=== PATIENT | female | born 1940 | race Caucasian/White ===

== ENCOUNTER 2019-09-16 15:04 | Outpatient (CLI) | payer MEDICARE, BC, SELFPAY ==
--- NOTE | ~2019-09-16 | XR_ITS ---
EXAMINATION: XR knee RT 3V DATE: 09/16/2019 15:52 INDICATION: Right knee pain. Degenerative joint disease. TECHNIQUE: 3 views of right knee were obtained. COMPARISON: Right knee radiographs 08/15/2016 FINDINGS: Bone alignment is normal. No fracture. There is mild tricompartmental osteoarthritis. No kn ee joint effusion. IMPRESSION: 1. Stable mild right knee osteoarthritis. Reviewed, dictated and finalized at location E.
--- NOTE | ~2019-09-16 | XR_ITS ---
EXAMINATION: XR knee LT 3V DATE: 09/16/2019 15:51 INDICATION: Left knee pain. TECHNIQUE: 3 views of left knee were obtained. COMPARISON: Right knee radiographs 08/15/2016 FINDINGS: Bone alignment is normal. No fracture. There is mild tricompartmental osteoarthritis. There is a moderate-sized knee joint effusion. IMPRESSION: 1. Worsened mild left knee osteoarthritis. 2. Moderate-sized left knee joint effusion. Reviewed, dictated and finalized at location E.
== END 2019-09-16 15:05 | disposition home or self-care (01) ==
DX: M17.0 Bilateral primary osteoarthritis of knee (principal); M25.462 Effusion, left knee
CPT/HCPCS: 73562

== ENCOUNTER 2019-09-24 09:23 | Outpatient (CLI) | payer MEDICARE, BC, SELFPAY ==
--- NOTE | ~2019-09-24 | MM_ITS ---
EXAMINATION: MM screening [facility] BI w frantz HISTORY: Screening mammogram TECHNIQUE: Craniocaudal and mediolateral oblique 3-D tomosynthesis images were obtained and synthetic 2-D images were generated. CAD analysis was submitted and interpreted. COMPARISON: 05/11/2018, 02/28/2017, 01/22/2016 BREAST PARENCHYMAL COMPOSITION: There are scattered areas of fibroglandular density. FINDINGS: An unchanged focal asymmetry is present in the posterior third of the upper outer quadrant of the left breast. There is also a stable mass in the anterior third of the slightly outer right ricky ast. There is no evidence of suspicious mass, calcification, or architectural distortion to suggest m alignancy in either breast. There has been no suspicious interval change. IMPRESSION: 1. No mammographic evidence of malignancy. 2. Recommend routine screening mammography while the patient remains in good health. BI-RADS Category 2: Benign finding(s). Reviewed, dictated and finalized at location A. IMPRESSION: 1. No mammographic evidence of malignancy. 2. Recommend routine screening mammography while the patient remains in good he alth. BI-RADS Category 2: Benign finding(s).
== END 2019-09-24 09:24 | disposition home or self-care (01) ==
LOC: ANHIMG 09:38
DX: Z12.31 Encounter for screening mammogram for malignant neoplasm of breast (principal)
CPT/HCPCS: 77063; 77067

== ENCOUNTER 2019-11-21 10:47 | Emergency (ER) | payer MEDICARE, BC, SELFPAY ==
--- NOTE | ~2019-11-21 | XR_ITS ---
EXAMINATION: XR chest 2V DATE: 11/21/2019 11:48 INDICATION: Chest pain. Shortness of breath. TECHNIQUE: Frontal and lateral views of the chest were obtained. COMPARISON: CT abdomen and pelvis 11/11/2016 FINDINGS: The chest demonstrates clear lungs without pneumonia, pleural effusion, or pneumothorax. Th e heart size is normal. There are prominent paracardial fat pads. IMPRESSION: 1. No acute cardiopulmonary disease. Reviewed, dictated and finalized at location B.
[2019-11-21 10:53] VITALS: BP 162/72; PULSE 96; RESP 20; TEMP 37.1; O2SAT 99
--- NOTE | 2019-11-21 11:12 | ECG_ITS ---
Measurements Intervals [place] Rate: 99 P: 57 IA: 179 QRS: -37 QRSD: 139 T: 103 QT: 363 QTc: 467 Interpretive Statements SINUS RHYTHM VENTRICULAR PREMATURE COMPLEX POSSIBLE LEFT ATRIAL ENLARGEMENT LEFT AXIS DEVIATION LEFT BUNDLE BRANCH BLOCK BASELINE ARTIFACT- I, II, AVR ABNORMAL ECG Electronically Signed On 11-21-2019 11:54:00 CDT by Oliverio Roberts D.O.
--- NOTE | 2019-11-21 11:24 | ED.CHESTPAIN ---
HPI - Chest Pain General Chief Complaint: Chest Pain Stated Complaint: cp/sob Time Seen by Provider: 11/21/19 11:15 History of Present Illness HPI narrative: Patient presents with her best friend since age 3, for chest pressure. Started while she was in physical therapy today for her knee, at 10 AM. She had a similar episode 4 days after her left knee replacement. She had a full medical work-up at [facility] emergency room, and no cause was found. She has not had a blood clot before. Her knee replacement was a month ago, at [facility]. It was a partial knee replacement. She tells us that she can do an hour and a half of water aerobics at a time. She cannot give her chest pressure a number of pain. She feels like she has had some chills. She has not been sick otherwise. MD complaint: chest heaviness Pertinent past history: other (Hypertension) Onset (ago): hour(s) Timing of current episode: constant Prior episodes: Yes Onset: during exertion Pain location: substernal Pain radiation: none Quality: tightness Relieving factors: nothing Exacerbating factors: nothing Context: recent surgery Associated symptoms: other (Chills) Treatment prior to arrival: none Risk Factors Coronary artery disease risk factors: hypertension Pulmonary embolism risk factors: recent surgery Related Data Home Medications Medication Instructions Recorded Confirmed amlodipine 10 mg PO DAILY 11/21/19 aspirin 325 mg PO DAILY 11/21/19 diclofenac sodium 75 mg PO DAILY 11/21/19 hydrocodone-acetaminophen [[place]] 1 tablet PO Q2-4H 11/21/19 irbesartan 300 mg PO DAILY 11/21/19 triamterene-hydrochlorothiazid 1 cap PO DAILY 11/21/19 Allergies Allergy/AdvReac Type Severity Reaction Status Date / Time shellfish derived Allergy Severe SWELLING Verified 09/23/17 10:57 lidocaine Allergy Mild TACHYCARDIA Verified 09/23/17 10:57 Penicillins Allergy Unknown Verified 11/11/15 16:45 Sulfa (Sulfonamide Allergy Unknown Verified 11/11/15 16:45 Antibiotics) tetracycline Allergy Unknown Verified 11/11/15 16:45 codeine AdvReac Mild CONFUSION Unverified 09/23/17 10:57 Contrast Media Allergy Severe TACHYCARDIA Uncoded 09/23/17 10:57 Horse Serum Proteins Allergy Severe PRONOUNCED Uncoded 09/23/17 10:57 ON ARRIVAL AT ER IN 1950S Review of Systems Review of Systems: Narrative: CONSTITUTIONAL: Denies fever, chills, or sweats. EYES: Denies visual changes, redness, or discharge. ENT: Denies rhinorrhea, congestion, sore throat, or otalgia. CARDIOVASCULAR: He has chest pressure but not palpitations, or edema. RESPIRATORY: Denies cough or dyspnea. GASTROINTESTINAL: Denies abdominal pain, nausea, vomiting, or diarrhea. GENITOURINARY: Denies dysuria or hematuria. SKIN: Denies rash or itching. MUSCULOSKELETAL: Denies back pain, joint pain, or myalgia. NEUROLOGIC: Denies headache, numbness, or weakness. . All systems reviewed & are unremarkable except as noted in HPI and below PMFSH Surgical History Surgical History History of knee surgery Family History Family History (Updated 12/05/13 @ 07:13 by DOCTOR UNKNOWN) Other Hypertension Social History Social History Smoking status: Never smoker Exam Narrative: Exam Narrative: GENERAL: Well-appearing, well-nourished, and in no acute distress. Looks much younger than stated age. HEAD: Normocephalic, atraumatic. EYES: PERRLA and EOMI. ENT: Nares clear, no rhinorrhea or epistaxis. Mucous membranes moist. NECK: Supple. CHEST: Clear to auscultation. No respiratory distress. HEART: Regular rate and rhythm. No murmur heard. Normal peripheral pulses. ABDOMEN: Soft, nontender, nondistended, normal active bowel sounds. EXTREMITIES: Normal range of motion. No edema. SKIN: Warm, dry, no rash. NEURO: No focal deficits. Alert and oriented x3. PSYCH: Normal mood and affect. Course Reev
[2019-11-21 11:26] LABS: Basophils Absolute Auto 0.1 K/mm3 (0.0-0.1); Basophils Percent Auto 1.1 % (0.2-1.2); Eosinophils Absolute Auto 0.7 K/mm3 (0-0.3); Eosinophils Percent Auto 9.4 % (0-4.4); Hematocrit 37.5 % (37.0-47.0); Hemoglobin 12.6 g/dL (12.0-15.0); Immature Granulocyte Absolute 0.02 K/mm3 (0.00-0.031); Immature Granulocyte Percent A 0.3 % (0-0.5); Lymphocytes Absolute Auto 2.31 K/mm3 (0.9-3.2); Lymphocytes Percent Auto 31.6 % (18.3-44.2); Mean Corpuscular HGB Conc 33.6 g/dl (32-36); Mean Corpuscular Hemoglobin 32.6 pg (26-34); Mean Corpuscular Volume 96.9 fl (80-100); Mean Platelet Volume 9.4 fl (7.4-10.4); Monocytes Absolute Auto 0.5 K/mm3 (0.1-0.6); Monocytes Percent Auto 6.6 % (2.6-8.5); Neutrophils Absolute Auto 3.7 K/mm3 (1.3-6.7); Platelet Count Result 326 k/mm3 (150-375); Red Blood Count 3.87 M/mm3 (4.2-5.4); White Blood Count 7.3 K/mm3 (4.5-10.0)
[2019-11-21 11:35] LABS: Prothrombin Time 12.6 Seconds (11.1-14.7)
[2019-11-21 11:36] LABS: Partial Thromboplastin Time 33.2 SECONDS (22.3-36.8)
[2019-11-21 11:41] LABS: Anion Gap 8 mmol/L (8-16); Blood Urea Nitrogen 28 mg/dL (7-17); Calcium 9.7 mg/dL (8.4-10.2); Carbon Dioxide 29 mmol/L (22-30); Chloride 99 mmol/L (98-107); Estimated CRCL calculation 32 ml/min; Estimated Glomerular Filt Rate 43; Glucose 107 mg/dL (65-105); Potassium 3.4 mmol/L (3.4-5.0); Sodium 136 mmol/L (137-145)
[2019-11-21 11:53] LABS: Troponin I < 0.012 ng/mL (0.000-0.034)
[2019-11-21 12:17] LABS: Add Urine Microscopic? YES; Appearance Urine Clear (Clear); Bilirubin Urine Negative (Negative); Blood Urine Negative (Negative); Color Urine Yellow (Yellow); Glucose Urine UA Negative (Negative); Ketones Urine Negative (Negative); Leukocyte Esterase Ur Negative LEU/UL (Negative); Mucus Urine Rare /lpf; Nitrate Urine Negative (Negative); Protein Urine Negative (Negative); RBC Urine 0-2 /hpf (0-2); Specific Grav Ur 1.012 (1.001-1.035); Urobilinogen Urine Negative mg/dL (<2.0); WBC Urine 0-3 /hpf
[2019-11-21 13:28] VITALS: BP 100/63; PULSE 90; RESP 20; O2SAT 100
[2019-11-21 14:43] LABS: Troponin I < 0.012 ng/mL (0.000-0.034)
[2019-11-21 15:43] VITALS: BP 121/57; PULSE 80; RESP 18; O2SAT 99
== END 2019-11-21 15:44 | disposition home or self-care (01) ==
PROVIDERS: Emergency Provider Emergency Medicine
DX: I44.7 Left bundle-branch block, unspecified (principal); R07.89 Other chest pain; R06.02 Shortness of breath
CPT/HCPCS: 36415; 71046; 80048; 81001; 84484; 85025; 85610; 85730; 93005; 99284; A9270

== ENCOUNTER 2021-10-17 12:36 | Outpatient (CLI) | payer MEDICARE, BC, SELFPAY ==
--- NOTE | ~2021-10-17 | MR_ITS ---
EXAMINATION: MR foot LT wo con DATE: 10/17/2021 13:43 INDICATION: Left foot and ankle pain TECHNIQUE: Magnetic resonance imaging (MRI) of the left fluid which excludes the posterior aspect of the calcaneus was performed without intravenous contrast. Sequences included sagittal T1-weighted FSE , sagittal fluid sensitive FSE STIR, coronal PD-weighted FS FSE, coronal T1-weighted FSE, axial PD-we ighted FS FSE, and axial PD-weighted FSE. COMPARISON: Left foot radiographs dated 03/02/2015 FINDINGS: Unchanged chronic varus angulation at the first-third metatarsophalangeal joints with hammertoe defor mities at the second and third toes. No fracture or pathologic marrow replacing process. Moderate to severe osteoarthritis with subarticular cystic and edema-like changes at the first-third tarsal metat arsal joints. 2.3 x 2.1 x 1.5 cm multilobulated ganglion cyst which appears to arise from the junctio n of the articulations of the base of the first and second metatarsals and the medial and mid cuneifo sergio. The Lisfranc ligament complex remains normal. Additional mild osteoarthritis at the fourth and f ifth tarsal metatarsal joints, the first second third metatarsophalangeal and several interphalangeal joints. The collateral ligament complex at the metatarsophalangeal and interphalangeal joints. Intac t. There is mild tendinopathy without discrete tear at the distal tibialis anterior tendon. The remai esther flexor and extensor tendons appear normal. The medial and lateral stabilizing ligaments of the a nkle as well as the spring ligament complex are normal. IMPRESSION: 1. Moderate to severe osteoarthritis at the first-third tarsal metatarsal joints with associated 2.3 x 2.1 x 1.5 cm multilobulated ganglion cyst extending dorsal to the base of the second metatarsal. 2. Varus angulation at the first second third metatarsophalangeal joints with second and third hammer toe deformities. 3. Tendinopathy without discrete tear at the distal tibialis anterior tendon Reviewed, dictated and finalized at location B. IMPRESSION: 1. Moderate to severe osteoarthritis at the first-third tarsal metatarsal joint s with associated 2.3 x 2.1 x 1.5 cm multilobulated ganglion cyst extending alexia eliana to the base of the second metatarsal. 2. Varus angulation at the first second third metatarsophalangeal joints with s econd and third hammertoe deformities. 3. Tendinopathy without discrete tear at the distal tibialis anterior tendon
== END 2021-10-17 12:37 | disposition home or self-care (01) ==
LOC: ANHIMG 12:39
DX: M25.572 Pain in left ankle and joints of left foot (principal); G89.29 Other chronic pain; M19.072 Primary osteoarthritis, left ankle and foot; M67.472 Ganglion, left ankle and foot; M21.172 Varus deformity, not elsewhere classified, left ankle; M20.42 Other hammer toe(s) (acquired), left foot; M77.8 Other enthesopathies, not elsewhere classified
CPT/HCPCS: 73718

== ENCOUNTER 2021-12-29 10:19 | Outpatient (CLI) | payer MEDICARE, BC, SELFPAY ==
--- NOTE | ~2021-12-29 | MM_ITS ---
EXAMINATION: MM screening [facility] BI w frantz HISTORY: Screening mammogram TECHNIQUE: Craniocaudal and mediolateral oblique 3-D tomosynthesis images were obtained and synthetic 2-D images were generated. CAD analysis was submitted and interpreted. COMPARISON: 09/24/2019, 05/11/2018, 02/28/2017 BREAST PARENCHYMAL COMPOSITION: There are scattered areas of fibroglandular density. FINDINGS: There is no suspicious mass, calcification, or architectural distortion to suggest malignan cy in either breast. There has been no suspicious interval change. IMPRESSION: 1. No mammographic evidence of malignancy. 2. Recommend routine screening mammography while the patient remains in good health. BI-RADS Category 1: Negative Reviewed, dictated and finalized at location D. IMPRESSION: 1. No mammographic evidence of malignancy. 2. Recommend routine screening mammography while the patient remains in good he alth. BI-RADS Category 1: Negative
== END 2021-12-29 10:20 | disposition home or self-care (01) ==
DX: Z12.31 Encounter for screening mammogram for malignant neoplasm of breast (principal)
CPT/HCPCS: 77063; 77067

== ENCOUNTER 2022-01-16 21:45 | Inpatient (IN) | payer MEDICARE, BC, SELFPAY ==
[2022-01-16] VITALS (16 sets, daily range): BP systolic 115–188; BP diastolic 50–63; PULSE 39–102; RESP 13–20; TEMP 36.9; O2SAT 97–100
--- NOTE | ~2022-01-16 | XR_ITS ---
EXAMINATION: XR chest 2V DATE: 01/18/2022 15:23 INDICATION: Pacer placement. TECHNIQUE: Frontal and lateral views of the chest were obtained. COMPARISON: Chest single view 01/17/2022 FINDINGS: There is mild atelectasis in left lower lung zone. No pleural effusion or pneumothorax. The heart size is normal. There is a left chest wall pacer with leads in the right atrium and right vent ricle. IMPRESSION: 1. Mild atelectasis in left lower lung zone. Reviewed, dictated and finalized at location A.
--- NOTE | ~2022-01-16 | XR_ITS ---
EXAMINATION: XR chest 1V DATE: 01/16/2022 22:43 INDICATION: Syncope. Dizziness. TECHNIQUE: A single frontal view of the chest was obtained. COMPARISON: Chest 2 views 11/21/2019 FINDINGS: There is mild atelectasis in left lower lung zone. Jessica B-lines are noted, consistent wit h mild pulmonary edema. No pleural effusion or pneumothorax. The heart size is normal. IMPRESSION: 1. Mild pulmonary edema. 2. Mild atelectasis in left lower lung zone. Reviewed, dictated and finalized at location A.
--- NOTE | ~2022-01-16 | CT_ITS ---
EXAMINATION: CT brain wo con DATE: 01/16/2022 22:45 INDICATION: Syncope. Dizziness. TECHNIQUE: Computed tomography (CT) of the head was performed without intravenous contrast. The mA wa s adjusted according to patient size. Iterative reconstruction technique was employed. The dose-lengt h product was 605.33 mGy-cm. COMPARISON: None FINDINGS: There is no intracranial hemorrhage, acute infarction, or abnormal intracranial mass lesion . There are scattered areas of low attenuation in the cerebral white matter, which is within normal l imits for the patient's age. The ventricles are normal in size. The paranasal sinuses are clear. The mastoid air cells are normal. IMPRESSION: 1. Normal aging brain. Reviewed, dictated and finalized at location A. IMPRESSION: 1. Normal aging brain.
--- NOTE | ~2022-01-16 | CT_ITS ---
EXAMINATION: CT cervical spine wo con DATE: 01/16/2022 22:46 INDICATION: Neck injury. Fall. TECHNIQUE: Computed tomography (CT) of the cervical spine was performed without intravenous contrast. Automated exposure control and iterative reconstruction technique were employed. The dose-length pro duct was 335.36 mGy-cm. COMPARISON: None FINDINGS: There is mild scarring at the lung apices. There is kyphosis of cervical spine. There is 2 mm anterolisthesis of C3 on C4 and 2 mm retrolisthesis of C5 on C6. Vertebral body heights are normal . There is moderately decreased disc height at C4-C5 and severely decreased disc height at C5-C6, C6- C7, and C7-T1. The following disc levels are specifically discussed: C2-C3: There is no uncovertebral joint osteoarthritis. There is severe right and moderate left facet joint osteoarthritis. There is mild right neural foraminal stenosis. There is no central canal stenos is. C3-C4: There is mild right and moderate left uncovertebral joint osteoarthritis. There is mild right and severe left facet joint osteoarthritis. There is mild left neural foraminal stenosis. There is mi ld central canal stenosis. C4-C5: There is moderate right and severe left uncovertebral joint osteoarthritis. There is severe bi lateral facet joint osteoarthritis. There is mild bilateral neural foraminal stenosis. There is mild central canal stenosis. C5-C6: There is moderate and severe left uncovertebral joint osteoarthritis. There is mild bilateral facet joint osteoarthritis. There is mild bilateral neural foraminal stenosis. There is mild central canal stenosis. C6-C7: There is moderate and severe left uncovertebral joint osteoarthritis. There is mild right and moderate left facet joint osteoarthritis. There is mild left neural foraminal stenosis. There is mild central canal stenosis. C7-T1: There is moderate right and mild left uncovertebral joint osteoarthritis. There is severe bila teral facet joint osteoarthritis. There is mild bilateral neural foraminal stenosis. There is mild ce ntral canal stenosis. IMPRESSION: 1. No fracture. 2. Severe cervical spondylosis. Reviewed, dictated and finalized at location A.
--- NOTE | ~2022-01-16 | US_ITS ---
EXAMINATION: US abdomen limited DATE: 01/17/2022 09:42 INDICATION: Elevated liver function tests TECHNIQUE: Multiple grayscale and Doppler ultrasound images of the abdomen were obtained. COMPARISON: CT, 11/11/2016 FINDINGS: The head, body, and tail of the pancreas are normal. There is a 2.2 cm cyst of the liver. T here is a 9 mm hyperechoic lesion of the right hepatic lobe with minimal change since the comparison CT. The liver is otherwise normal with normal echogenicity and echotexture. No surface nodularity. No rmal hepatopetal flow in the main portal vein. The gallbladder is normal with no abnormal wall thicke esther, pericholecystic fluid or stones. The normal common bile duct measures 4 mm. There was no sonogr aphic Meehan sign. IMPRESSION: 1. Normal sonographic study of the gallbladder. Reviewed, dictated and finalized at location A.
--- NOTE | ~2022-01-16 | XR_ITS ---
EXAMINATION: XR chest 1V portable DATE: 01/17/2022 15:42 INDICATION: Pacemaker insertion TECHNIQUE: frontal view of the chest was obtained. COMPARISON: Chest radiograph dated 01/16/2022 FINDINGS: Unchanged linear discoid atelectasis/scarring at the lateral left lower lung zone. No other airspace opacities, pulmonary edema, pleural effusion or pneumothorax. The cardiomediastinal silhouette is nor mal. Dual lead pacemaker seen with leads projecting over the expected locations of the right atrium a nd right ventricle. Mild thoracic dextroscoliosis with moderate to severe midthoracic spondylosis. IMPRESSION: 1. Unchanged linear discoid atelectasis/scarring at the left lower lung zone. No acute cardiopulmonar y disease. Reviewed, dictated and finalized at location B. IMPRESSION: 1. Unchanged linear discoid atelectasis/scarring at the left lower lung zone. N o acute cardiopulmonary disease.
--- NOTE | 2022-01-16 21:50 | PC.NURSE ---
Patient transferred to radiology for imaging by this RN and soil science technical officer. Patient on transfer monitor and VORB to give 0.5mg of atropine if patient becomes symptomatic or stays with a HR in the 30s.
--- NOTE | 2022-01-16 21:54 | ECG_ITS ---
Measurements Intervals [place] Rate: 39 P: AK: 0 QRS: -53 QRSD: 147 T: 20 QT: 496 QTc: 400 Interpretive Statements COMPLETE HEART BLOCK LEFT BUNDLE BRANCH BLOCK CRITICAL TEST RESULT COMPARED TO ECG 11/21/2019 10:53:07 COMPLETE HEART BLOCK IS NOW PRESENT Electronically Signed On 01-17-2022 11:42:09 CDT by Ayanna Toledo M.D.
--- NOTE | 2022-01-16 21:57 | ED.SYNCOPE ---
HPI - Syncope General Chief Complaint: Syncope Stated Complaint: new beta hugh syncopal episode x 2 Time Seen by Provider: 01/16/22 21:45 History of Present Illness HPI narrative: This is an 81-year-old female brought in by EMS for syncopal episode x3 today. Patient states her metoprolol was increased from 50 mg to 75 mg which she took this morning. She also started Irbesartan 300 mg which she took approximately an hour before becoming lightheaded and losing consciousness. Bystanders said the patient fell to the ground and hit her head as well as her left forearm. On arrival EMS noted the patient in normal sinus rhythm with normal blood pressures. However during their evaluation patient lost consciousness again. Patient notes she lost consciousness at third time while lying on the ground. She denies chest pain. Related Data Home Medications Medication Instructions Recorded Confirmed amlodipine 10 mg tablet 10 mg PO DAILY 11/21/19 aspirin 325 mg tablet 325 mg PO DAILY 11/21/19 diclofenac sodium 75 mg 75 mg PO DAILY 11/21/19 tablet,delayed release hydrocodone 5 mg-acetaminophen 325 1 tablet PO Q2-4H 11/21/19 mg tablet ([place]) irbesartan 300 mg tablet 300 mg PO DAILY 11/21/19 triamterene 37.5 1 cap PO DAILY 11/21/19 mg-hydrochlorothiazide 25 mg capsule Allergies Allergy/AdvReac Type Severity Reaction Status Date / Time shellfish derived Allergy Severe SWELLING Verified 01/16/22 21:56 lidocaine Allergy Mild TACHYCARDIA Verified 01/16/22 21:56 Penicillins Allergy Unknown Hives Verified 01/16/22 21:56 Sulfa (Sulfonamide Allergy Unknown Hives Verified 01/16/22 21:56 Antibiotics) tetracycline Allergy Unknown Hives Verified 01/16/22 21:56 codeine AdvReac Mild CONFUSION Verified 01/16/22 21:56 Contrast Media Allergy Severe TACHYCARDIA Uncoded 09/23/17 10:57 Horse Serum Proteins Allergy Severe PRONOUNCED Uncoded 09/23/17 10:57 ON ARRIVAL AT ER IN 1950S Review of Systems Review of Systems: CONSTITUTIONAL: Denies fever, chills, or sweats. EYES: Denies visual changes, redness, or discharge. ENT: Denies rhinorrhea, congestion, sore throat, or otalgia. CARDIOVASCULAR: Denies chest pain, palpitations, or edema. RESPIRATORY: Denies cough or dyspnea. GASTROINTESTINAL: Denies abdominal pain, nausea, vomiting, or diarrhea. GENITOURINARY: Denies dysuria or hematuria. SKIN: Denies rash or itching. MUSCULOSKELETAL: Denies back pain, joint pain, or myalgia. NEUROLOGIC: Intermittent lightheadedness and loss of consciousness denies headache, numbness, or weakness. PSYCHIATRIC: Denies anxiety or depression. [facility], [facility] Past Medical History Medical History (Updated 01/17/22 @ 02:51 by Loki Richmond MD) Hypertension LBBB (left bundle branch block) Neoplasm of leg Rheumatoid arthritis Surgical History Surgical History History of knee surgery Family History Family History (Updated 01/17/22 @ 02:15 by Arnaldo Booker RN) Father Cancer Mother Cancer Other Hypertension Social History Social History Smoking packs per day: 0.5 Smoking cigarettes per day: 10.0 Years smoked: 20 Smoking pack-years: 10.00 Smoking status: Former smoker Tobacco type: cigarettes Alcohol intake: never Substance use: never Substance use type: does not use Spiritual care concerns: No Exam Narrative: GENERAL: Well-appearing, well-nourished, and in no acute distress. HEAD: Normocephalic, atraumatic. EYES: PERRLA and EOMI. ENT: Nares clear, no rhinorrhea or epistaxis. Mucous membranes moist. Oropharynx without tonsillar hypertrophy exudate or other lesions. NECK: Supple. No adenopathy or masses. No carotid bruits or JVD CHEST: Clear to auscultation. No respiratory distress. No wheezes rales or rhonchi HEART: Bradycardic with regular rhythm. No murmur heard. Normal per
[2022-01-16 22:08] LABS: Glucose Point of Care 117 mg/dl (65-105)
[2022-01-16 22:19] LABS: Basophils Absolute Auto 0.1 K/mm3 (0.0-0.1); Basophils Percent Auto 0.7 % (0.2-1.2); Eosinophils Absolute Auto 0.3 K/mm3 (0-0.3); Eosinophils Percent Auto 3.5 % (0-4.4); Hematocrit 40.3 % (37.0-47.0); Hemoglobin 13.6 g/dL (12.0-15.0); Immature Granulocyte Absolute 0.01 K/mm3 (0.00-0.031); Immature Granulocyte Percent A 0.1 % (0-0.5); Lymphocytes Absolute Auto 1.97 K/mm3 (0.9-3.2); Lymphocytes Percent Auto 24.6 % (18.3-44.2); Mean Corpuscular HGB Conc 33.7 g/dl (32-36); Mean Corpuscular Hemoglobin 32.7 pg (26-34); Mean Corpuscular Volume 96.9 fl (80-100); Mean Platelet Volume 9.1 fl (7.4-10.4); Monocytes Absolute Auto 0.5 K/mm3 (0.1-0.6); Monocytes Percent Auto 5.9 % (2.6-8.5); Neutrophils Absolute Auto 5.2 K/mm3 (1.3-6.7); Neutrophils Percent Auto 65.2 % (45.5-73.1); Platelet Count Result 215 k/mm3 (150-375); Red Blood Count 4.16 M/mm3 (4.2-5.4); Red Cell Distribution Width 12.9 % (11.5-14.5)
[2022-01-16 22:24] LABS: Add Urine Microscopic? YES; Appearance Urine Clear (Clear); Bacteria Urine Trace /hpf; Bilirubin Urine Negative (Negative); Blood Urine Negative (Negative); Color Urine Yellow (Yellow); Glucose Urine UA Negative (Negative); Ketones Urine Negative (Negative); Leukocyte Esterase Ur Trace LEU/UL (Negative); Mucus Urine Rare /lpf; Nitrate Urine Negative (Negative); Protein Urine Negative (Negative); Specific Grav Ur 1.019 (1.001-1.035); Squamous Epithelial Cell Urine Rare /hpf (Few); Urobilinogen Urine Negative mg/dL (<2.0); WBC Urine 0-3 /hpf
[2022-01-16 22:34] LABS: Alanine Aminotransferase 229 U/L (6-35); Albumin Level 4.1 g/dL (3.5-5.1); Alkaline Phosphatase 113 U/L (38-126); Anion Gap 9 mmol/L (8-16); Aspartate Amino Transferase 239 U/L (14-36); Blood Urea Nitrogen 30 mg/dL (7-17); Calcium 9.4 mg/dL (8.4-10.2); Carbon Dioxide 21 mmol/L (22-30); Chloride 108 mmol/L (98-107); Estimated CRCL calculation 41 ml/min; Estimated Glomerular Filt Rate 60; Glucose 127 mg/dL (65-110); Magnesium 1.9 mg/dL (1.6-2.3); Potassium 3.4 mmol/L (3.4-5.0); Sodium 138 mmol/L (137-145)
--- NOTE | 2022-01-16 22:40 | PC.NURSE ---
Patient transferred to radiology for imaging by this RN and dental technician instructor. Patient on transfer monitor and VORB to give 0.5mg of atropine if patient becomes symptomatic or stays with a HR in the 30s.
[2022-01-16 22:44] LABS: Troponin I < 0.012 ng/mL (0.000-0.034)
--- NOTE | 2022-01-16 22:45 | PC.NURSE ---
Informed ERP of patient HR dipping into the 30s but was varied and ranged into 40s, and patient was not symptomatic while in imaging.
--- NOTE | 2022-01-16 22:47 | PC.NURSE ---
2245 [facility] give 0.5mg of atropine IVP per .
[2022-01-16] MEDS: ATROPINE SULFATE 1 MG/ML VIAL 0.4 MG IV PUSH (23:01)
[2022-01-17] VITALS (27 sets, daily range): BP systolic 115–169; BP diastolic 40–80; PULSE 33–91; RESP 12–25; TEMP 36.3–36.8; O2SAT 94–100; BMI 27.9
--- NOTE | 2022-01-17 | ECHO_ITS ---
Patient Info Name: Marisol Yañez Age: 81 years : 1940 Gender: Female Ht: 63 in Wt: 160 lbs BSA: 1.82 m2 HR: 42 bpm BP: 155 / 65 mmHg Heart Rhythm: Bradycardia Technical Quality: Good Exam Date: 01/17/2022 8:38 AM Exam Location: [facility] Patient Status: Inpatient Admit Date: 01/17/2022 Staff Ordering Physician: Khang Newsome MD [employer]ting Tracer Machine Operator: Candace Vargas RDCS Attending Provider: Axel Amador MD Referring Physician: Jerod GARCÍA; Exam Type: CA echo doppler color flow Study Info Indications R55 - Syncope and collapse Complete two-dimensional, color flow and Doppler transthoracic echocardiogram is performed. Summary 1. Complete two-dimensional, color flow and Doppler transthoracic echocardiogram is performed. 2. Left ventricular systolic function is normal, estimated at 55-60%. 3. The left ventricular diastolic function is normal. 4. Right ventricular systolic function is normal. 5. There is mild mitral valve regurgitation. 6. There is mild tricuspid valve regurgitation. 7. There is mild pulmonic regurgitation. Left Ventricle Left ventricular chamber dimension is normal. Left ventricular systolic function is normal, estimated at 55-60%. There is no increased left ventricular wall thickness. The left ventricular diastolic function is normal. Right Ventricle Right ventricular chamber dimension is normal. Right ventricular systolic function is normal. Left Atria Left atrial chamber dimension is normal. Right Atria Right atrial chamber dimension is normal. Aortic Valve The aortic valve is not well visualized. There is no aortic valve stenosis. There is no aortic valve regurgitation. Pulmonic Valve The pulmonic valve is not well visualized. There is mild pulmonic regurgitation. Mitral Valve Mild calcification of the posterior mitral valve leaflet. The mitral valve has normal leaflets. There is no mitral valve stenosis. There is mild mitral valve regurgitation. Tricuspid Valve The tricuspid valve leaflets are not well visualized. There is no significant tricuspid valve stenosis. There is mild tricuspid valve regurgitation. Pericardium/Pleural There is no pericardial effusion. Inferior Vena Cava Dilated inferior vena cava with >50% collapse upon inspiration consistent with elevated right atrial pressure, 8 mmHg. Left Ventricular Outflow Tract Name Value Normal LVOT 2D LVOT Diameter 1.9 cm LVOT Doppler LVOT Peak Gradient 7 mmHg LVOT Mean Gradient 4 mmHg LVOT VTI 39 cm LVOT VTI/AV VTI Ratio 0.9 LVOT Stroke Volume 109 ml LVOT CO 17.6 l/min LVOT CI 9.7 l/min/m2 Pulmonic Valve Name Value Normal PV Doppler
[2022-01-17] MEDS: ATROPINE SULFATE 1 MG/ML VIAL 0.5 MG IV PUSH ×2 (00:13→00:17)
[2022-01-17] MEDS: ATROPINE SULFATE 1 MG/10 ML SYRINGE (00:33)
--- NOTE | 2022-01-17 00:37 | ECG_ITS ---
Measurements Intervals [place] Rate: 34 P: [place]: 0 QRS: 18 QRSD: 139 T: -22 QT: 572 QTc: 430 Interpretive Statements COMPLETE HEART BLOCK INTRAVENTRICULAR CONDUCTION DELAY [130+ ms QRS DURATION] EXTENSIVE T-WAVE ABNORMALITIES CRITICAL TEST RESULT COMPARED TO ECG 01/16/2022 21:57:12 SINUS RHYTHM NOW PRESENT THE PATIENT NOW HAS A RIGHT BUNDLE-BRANCH BLOCK PATTERN INSTEAD OF A LEFT BBB Electronically Signed On 01-18-2022 12:50:26 CDT by Trudy Razo M.D.
[2022-01-17] MEDS: DOBUTamine 250 MG/D5W 250 ML 250 MG/250 ML BAG 10.91 MG IV CONT (00:41)
[2022-01-17 01:40] LABS: Troponin I < 0.012 ng/mL (0.000-0.034)
--- NOTE | 2022-01-17 02:34 | ADMGEN ---
This patient, Marisol Yañez, was admitted to Intensive Care Unit-3. Patient/family oriented to hospital policies and general routines including ID bracelet, bed and alarms, visiting hours, pain management, procedures, bathroom and other care routines, personal items, smoking policy, room service/diet, and visiting hours. Information on how to activate the Rapid Response Team has been discussed. Patient/Family are encouraged to report perceived risks to care and to ask questions if they do not understand what they are told or what they should do.
--- NOTE | 2022-01-17 03:30 | PC.NURSE ---
Dr. Amador to bedside.
--- NOTE | 2022-01-17 03:35 | PC.NURSE ---
Unsuccessful in placing gottlieb catheterx three attempts.
--- NOTE | 2022-01-17 04:29 | PM.IMHP ---
H&P: HPI History of Present Illness Date/Time: 01/17/22 04:29 Chief Complaint: Syncope Narrative: This is an 81-year-old female with past medical history significant for hypertension, left bundle branch block, rheumatoid arthritis. patient presents to the emergency room after she had syncopal episode x3 had some lightheadedness, denied any chest pain, shortness of breath, diaphoresis, she has been her usual state of health up until this time denies any incontinence of sphincters, nausea, vomiting, abdominal pain, fevers, rigors, chills, leg swelling, PND, orthopnea. Preliminary workup was significant for EKG with second-degree AV block which eventually progressed to complete AV block. Patient is placed on dopamine drip and any and admitted to intensive care unit Review of Systems Review of Systems: syncope x3, lightheadedness Constitutional: Constitutional: Denies chills, Denies fever(s), Denies night sweats and Denies poor appetite Eyes: Eyes: Denies change in vision ENT: Denies dysphagia and Denies odynophagia Cardiovascular: Cardiovascular: Reports syncope, Reports irregular heart rhythm, Reports lightheadedness, Denies dyspnea and Denies paroxysmal nocturnal dyspnea Respiratory: Respiratory: Denies chest congestion, Denies cough, Denies pain on inspiration and Denies dyspnea Gastrointestinal: Gastrointestinal: Denies abdominal pain, Denies dyspepsia, Denies heartburn, Denies nausea and Denies vomiting Genitourinary: Genitourinary: Denies dysuria Musculoskeletal: Musculoskeletal: Denies back pain and Denies joint swelling Integumentary/Breasts: Skin/Breast: Denies rash Neurologic: Denies vertigo, Denies dizziness, Denies focal weakness and Denies Sensory deficit (Neuro) Psychiatric: Psychiatric: Reports no additional psychiatric complaints and Reports as per HPI Endocrine: Endocrine: Denies cold intolerance, Denies flushing, Denies heat intolerance, Denies polyphagia, Denies polydipsia and Denies palpitations Hematologic/Lymphatic: Hematologic/Lymphatic: Reports no additional hematologic/lymphatic complaints and Reports as per HPI Allergic/Immunologic: Allergic/Immunologic: Reports no additional allergic/immunologic complaints and Reports as per HPI PMFSH Past Medical History Medical History (Updated 01/17/22 @ 04:42 by Axel Amador MD) Hypertension LBBB (left bundle branch block) Neoplasm of leg Rheumatoid arthritis Surgical History Surgical History History of knee surgery Family History Family History (Updated 01/17/22 @ 02:15 by Arnaldo Booker RN) Father Cancer Mother Cancer Other Hypertension Social History Social History Smoking packs per day: 0.5 Smoking cigarettes per day: 10.0 Years smoked: 20 Smoking pack-years: 10.00 Smoking status: Former smoker Tobacco type: cigarettes Alcohol intake: never Substance use: never Substance use type: does not use Spiritual care concerns: No Meds Home Medications and Allergies Home Medications Medication Instructions Recorded Confirmed Type amlodipine 10 mg tablet 10 mg PO DAILY 11/21/19 History aspirin 325 mg tablet 325 mg PO DAILY 11/21/19 History diclofenac sodium 75 mg 75 mg PO DAILY 11/21/19 History tablet,delayed release hydrocodone 5 mg-acetaminophen 325 1 tablet PO Q2-4H 11/21/19 History mg tablet ([place]) irbesartan 300 mg tablet 300 mg PO DAILY 11/21/19 History triamterene 37.5 1 cap PO DAILY 11/21/19 History mg-hydrochlorothiazide 25 mg capsule Allergies Allergy/AdvReac Type Severity Reaction Status Date / Time shellfish derived Allergy Severe SWELLING Verified 01/16/22 21:56 lidocaine Allergy Mild TACHYCARDIA Verified 01/16/22 21:56 Penicillins Allergy Unknown Hives Verified 01/16/22 21:56 Sulfa (Sulfonamide Allergy Unknown Hives Verified 01/16/22 21:56 Antibiotic
[2022-01-17] MEDS: DOPamine 400 MG/D5W 250 ML 400 MG/250 ML BAG 13.84 MG IV CONT (07:50)
[2022-01-17 08:12] LABS: INR 1.1; Prothrombin Time 13.6 Seconds (11.1-14.7)
[2022-01-17 08:13] LABS: Partial Thromboplastin Time 28.8 SECONDS (22.3-36.8)
--- NOTE | 2022-01-17 08:34 | PM.CNCAR ---
Assessment and Plan Assessment and plan (1) CHB (complete heart block): Code(s): I44.2 - Atrioventricular block, complete Status: Acute (2) Syncope: Code(s): R55 - Syncope and collapse Status: Acute Plan will obtain an echocardiogram this morning to ensure that the patient does not have evidence of cardiomyopathy. I doubt this will be identified. 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 She was on some metoprolol as an outpatient that is obviously not the cause of this sort of conduction system disease. Khang Newsome MD [facility] History of Present Illness History of Present Illness Consult date/time: 01/17/22 08:34 Reason For Visit: Syncope Narrative: This is a very pleasant 81-year-old lady I am seeing at the request of the hospitalist because of syncope and complete heart block. The patient is unknown to me prior to this consultation. She states she had couple of syncopal episodes earlier last year and in May of this year. When this occurred in May she was seen by a crew leader gluing in [place] where she resides for the winter. She does remember being told that she had a left bundle branch block at that time and no other up recommendations were made. She came to the emergency room last night because yesterday she had 3 syncopal episodes in her home which were self-limited and forth from which she recovered. She is a and lives alone. She does not have any symptoms of exertional shortness of breath she has not been experiencing episodes of chest pain orthopnea PND or accumulating edema. She does have a history of hypertension. She was found to have significant AV block in the emergency room. Initially they called me because they were concerned about second-degree AV block I was called again later in the night because they thought it had progressed to third-degree block. She was given a bed in the ICU she is currently in ICU room 3. Appears to be asymptomatic and comfortable. She is in sinus rhythm with complete heart block and a heart rate of 41. Interestingly her 12 lead electrocardiogram shows alternation between left and right bundle branch block QRS morphology indicating she has trifascicular disease. An echocardiogram is being performed shortly. Review of Systems Constitutional: Constitutional: Reports no additional constitutional complaints and Reports weakness Eyes: Eyes: Reports no additional eye complaints ENT: Reports system reviewed and no additional complaints, except as documented Cardiovascular: Comments: Syncopal episodes as detailed above Respiratory: Respiratory: Reports no additional respiratory complaints Gastrointestinal: Gastrointestinal: Reports no additional gastrointestinal complaints Musculoskeletal: Musculoskeletal: Reports no additional musculoskeletal complaints Integumentary/Breasts: Skin/Breast: Reports system reviewed and no additional complaints, except as docu Neurologic: Reports as per HPI Endocrine: Endocrine: Reports no additional endocrine complaints Hematologic/Lymphatic: Hematologic/Lymphatic: Reports no additional hematologic/lymphatic complaints Allergic/Immunologic: Allergic/Immunologic: Reports no additional allergic/immunologic complaints [facility] Past Medical History Medical History (Updated 01/17/22 @ 04:42 by Axel Amador MD) Hypertension LBBB (left bundle branch block) Neoplasm of leg Rheumatoid arthritis Surgical History Surgical History History of knee surgery Family History Family History (Updated 01/17/22 @ 02:15 by Arnaldo Booker RN) Father Cancer Mother Cancer Other Hypertension Social History Social History S
--- NOTE | 2022-01-17 08:40 | PC.NURSE ---
Morning lovenox held per Dr. Smith pending pacemaker insertion.
[2022-01-17 08:46] LABS: Hepatitis B Surface Antigen Negative (Negative)
[2022-01-17 08:52] LABS: HAV RESULT Negative (Negative); Hepatitis B Core IgM Result Negative (Negative)
--- NOTE | 2022-01-17 08:59 | WPDCNINT ---
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 -patient denies any alcohol or illicit drug use -hepatitis panel is negative -right upper quadrant ultrasound has been ordered and pending Plan DVT prophylaxis: Will hold Lovenox for possible pacemaker implantation today Stress ulcer prophylaxis:none Nutrition: NPO for now Code Status: Full code Critical Care Time Spent: 44 minute Due to a high probability of clinically significant, life threatening deterioration, the patient required my highest level of preparedness to intervene emergently and I personally spent this critical care time directly and personally managing the patient. This critical care time included obtaining a history; examining the patient; pulse oximetry; ordering and review of studies; arranging urgent treatment with development of a management plan; evaluation of patient's response to treatment; frequent reassessment; and discussions with other providers. It was exclusive of separately billable procedures and treating other patients and teaching time. Please see Assessment and Plan section and the rest of the note for further information on patient assessment and treatment Caseworker Intake Consult Note Consult date: 01/17/22 Reason for consult: High degree AV block, syncope HPI: Marisol Yañez is a 81 year old female past medical history of hypertension, left bundle branch, neoplasm of the neck, rheumatoid arthritis presented the ED on 01/16/2022 after she had multiple syncopal episodes on the day of admission. According the patient metoprolol had been increased to 75 mg from 50 mg, she also took IV Versed at 300 mg prior to a syncopal episode. Patient did hit her head the left forearm on the ground. On arrival to the EMS she was initially in sinus rhythm but then she went into complete heart block. CT scan of the brain showed normal aging brain. CT cervical spine showed no fracture, severe cervical spondylosis. Chest x-ray with mild pulmonary edema, atelectasis in left lower lung zone. WBC count, hemoglobin and platelets were all within normal limits. INR was 1.1. Electrolytes are within normal limits. Elevation of AST and ALT noted. Troponins negative x2. UA was unremarkable. Patient was transferred to the ICU, was on dobutamine when she arrived to the ICU -of note patient has had previous syncopal episodes only last a in May this year, she did see a network analyst in [place] who told her that she had left bundle branch block and no other workup was recommended. Patient seen and examined in the ICU this morning in the ICU, remains awake, alert, oriented x3, is asymptomatic, complains of unable to sleep overnight. Patient denies any shortness of breath, chest pain, abdominal pain, nausea, vomiting. EKG shows complete heart block. Patient is on dobutamine. With heart rates in the upper 30s. Patient remains asymptomatic at this time Review of Systems Review of Systems: All systems reviewed & are unremarkable except as noted in HPI and below PMFSH Past M
[2022-01-17 09:03] LABS: Hepatitis C Virus Antibody Negative (Negative)
--- NOTE | 2022-01-17 09:56 | SUR.PREOP ---
Dr. Newsome made aware of patient's allergies. He ordered steroids to be given incase contrast is needed for venogram for pacemaker. MINING MACHINERY ASSEMBLER Jelly made aware. Dr. Newsome would like vancomycin to be used for antibiotics for the case. Dr. Newsome made aware of listed lidocaine allergy and states he does not need an alternative as this is likely not a true allergy.
[2022-01-17] MEDS: methylPREDNISolone SOD SUCC 125 MG VIAL IV PUSH (10:00)
--- NOTE | 2022-01-17 14:44 | ECG_ITS ---
Measurements Intervals [place] Rate: 72 P: 43 IA: 196 QRS: -87 QRSD: 156 T: 42 QT: 481 QTc: 528 Interpretive Statements ELECTRONIC VENTRICULAR PACEMAKER ABNORMAL RHYTHM ECG COMPARED TO ECG 01/17/2022 00:40:17 AV BLOCK, COMPLETE (THIRD-DEGREE) NO LONGER PRESENT Electronically Signed On 01-18-2022 13:10:31 CDT by Trudy Razo M.D.
--- NOTE | 2022-01-17 14:46 | WPDCARDPROC ---
Cardiac Cath Procedure Note Date of procedure:: 01/17/22 Performing physician:: Khang Newsome MD Indication:: acquired complete heart block Brief clinical history:: this is an 81-year-old woman presenting to the hospital with syncopal episodes. She had an episode of this May of this year and then 3 episodes the day of admission to the hospital yesterday. She has sinus rhythm with third-degree AV block and QRS morphology alternating between left and right bundle branch block. Because of complete heart block and trifascicular disease implantation of a permanent dual-chamber pacemaker has been recommended for today. Procedure Procedure performed:: Placement of temporary transvenous pacemaker from the right femoral vein implantation of permanent Biotronik dual-chamber pacemaker Sedation/Medication given:: fentanyl 25 mg Versed 2 mg case start time 1:05 p.m. case end time 2:30 p.m. a Access site:: left subclavian vein Estimated blood loss:: less than 20 cc Procedure note:: patient was brought to the cardiac catheterization lab postabsorptive state the right femoral triangle was prepared and draped in the normal fashion. Anesthesia was given with 4% lidocaine infiltrated locally after this the femoral vein was punctured and a 5 Austrian vascular sheath was placed. I then used a 5 Austrian balloon tipped temporary pacemaker catheter to protect the rhythm during the a permanent implant. The device was easily placed in the RV septal position and with good pacing and sensing performance. We then broke scrub and the team prepared the left anterior chest wall. The patient received another 20 cc of 1% lidocaine in the left anterior chest wall inferior to the clavicle. Following this an incision was made from the midclavicular line to the deltopectoral groove about an inch below the clavicle. Electrocautery was used to provide cutaneous hemostasis and sharp and blunt dissection was used to separate the subcutaneous fat down to the level of the prepectoral fascia. After this a pacemaker pocket was made with blunt dissection inferior to the incision. This pocket was then packed with antibiotic soaked 4 x 4. Attention was then turned to venous access. Using the modified Seldinger technique the left subclavian vein was punctured twice using the 6 Austrian safe sheath kits. The J-tip guidewires were advanced under fluoroscopic visualization into the venous circulation to the level of the right atrium. Using the SafeSheath the 2 pacemaker leads mention below where then advanced into the venous circulation into the level of the right atrium. Attention was then turned to the ventricular lead. The straight stylet was removed and a 3 cc syringe was used to form a J-tip on the stylet which was then used to steer the lead through the right ventricle out to the pulmonary artery position. A straight stylet was placed into the lead was withdrawn and placed into the right ventricular apex. Following this the lead was tested using the analyzed with good pacing Capture performance. The temporary pacemaker did extinguish the intrinsic rhythm there were no intrinsic R-waves to sense. The fixation screw was then deployed and the lead was then tested using the analyzer. A 10 volt stimulus failed to show any evidence of extracardiac stimulation. Following this attention was turned to the atrial lead the straight stylet and a preformed J stylet was used to place the lead in the right atrial appendage. The fixation screw was deployed the lead was fixed into position upon withdrawal of the stylet. The lead was then tested using the analyzed with good pacing and sensing performance. The leads were then secured to the base of the pocket using the suture sleeves and 2-0 silk ties following this the retained sponge was removed the pocket which was irrigated with antibiotic infused saline. Following this the leads were connected to the pacemaker generator using
[2022-01-18] VITALS (11 sets, daily range): BP systolic 119–166; BP diastolic 56–79; PULSE 60–92; RESP 13–23; TEMP 36.8–37.1; O2SAT 94–99
[2022-01-18 07:36] LABS: Basophils Percent Auto 0.1 % (0.2-1.2); Hematocrit 44.9 % (37.0-47.0); Hemoglobin 15.1 g/dL (12.0-15.0); Immature Granulocyte Absolute 0.06 K/mm3 (0.00-0.031); Immature Granulocyte Percent A 0.4 % (0-0.5); Lymphocytes Absolute Auto 1.43 K/mm3 (0.9-3.2); Lymphocytes Percent Auto 10.4 % (18.3-44.2); Mean Corpuscular HGB Conc 33.6 g/dl (32-36); Mean Corpuscular Hemoglobin 32.3 pg (26-34); Mean Corpuscular Volume 96.1 fl (80-100); Mean Platelet Volume 8.9 fl (7.4-10.4); Monocytes Percent Auto 7.4 % (2.6-8.5); Neutrophils Absolute Auto 11.3 K/mm3 (1.3-6.7); Neutrophils Percent Auto 81.7 % (45.5-73.1); Platelet Count Result 257 k/mm3 (150-375); Red Blood Count 4.67 M/mm3 (4.2-5.4); Red Cell Distribution Width 13.1 % (11.5-14.5); White Blood Count 13.8 K/mm3 (4.5-10.0)
[2022-01-18 07:46] LABS: Alanine Aminotransferase 112 U/L (6-35); Albumin Level 4.1 g/dL (3.5-5.1); Alkaline Phosphatase 87 U/L (38-126); Anion Gap 11 mmol/L (8-16); Aspartate Amino Transferase 36 U/L (14-36); Bilirubin,Total 1.2 mg/dL (0.2-1.3); Blood Urea Nitrogen 32 mg/dL (7-17); Calcium 9.9 mg/dL (8.4-10.2); Carbon Dioxide 25 mmol/L (22-30); Chloride 104 mmol/L (98-107); Estimated CRCL calculation 38 ml/min; Estimated Glomerular Filt Rate 53; Glucose 140 mg/dL (65-110); Magnesium 2.1 mg/dL (1.6-2.3); Phosphorus 3.6 mg/dL (2.5-4.5); Potassium 3.4 mmol/L (3.4-5.0); Sodium 140 mmol/L (137-145)
[2022-01-18] MEDS: ASPIRIN 81 MG CHEWABLE TABLET PO (10:47)
[2022-01-18] MEDS: amLODIPine BESYLATE 2.5 MG TABLET PO (10:47)
[2022-01-18] MEDS: hydrOXYzine HCL 12.5 MG TABLET PO (11:21)
--- NOTE | 2022-01-18 11:34 | WPDINTPN ---
Progress Note: A&P Assessment and Plan (1) Syncope: Code(s): R55 - Syncope and collapse Status: Acute Assessment and Plan: Patient had multiple syncopal episodes, likely related to complete heart block -appreciate cardiology evaluation and recommendation -according the cardiology patient has complete heart block with evidence of trifascicular disease -01/17/2022 echocardiogram showed LV systolic function be 55-60%, LV diastolic function is normal, RV systolic function is normal, no significant valve abnormalities -01/17/2022 patient received a dual-chamber pacemaker implantation by Cardiology (2) CHB (complete heart block): Code(s): I44.2 - Atrioventricular block, complete Status: Acute Assessment and Plan: As above (3) Hypertension: Code(s): I10 - Essential (primary) hypertension Status: Acute Assessment and Plan: Started patient on her home amlodipine (4) Elevated LFTs: Code(s): R79.89 - Other specified abnormal findings of blood chemistry Status: Acute Assessment and Plan: Unknown etiology . -patient denies any alcohol or illicit drug use -hepatitis panel is negative -01/17/2022: right upper quadrant ultrasound : Normal sonographic study of the gallbladder -LFTs trending down Plan DVT prophylaxis: Increase activity Stress ulcer prophylaxis:none Nutrition: Heart healthy diet Code Status: Full code Critical Care Time Spent: 32 minutes Discussed with patient and her son and updated them with her condition and plan of care. I answered all questions Due to a high probability of clinically significant, life threatening deterioration, the patient required my highest level of preparedness to intervene emergently and I personally spent this critical care time directly and personally managing the patient. This critical care time included obtaining a history; examining the patient; pulse oximetry; ordering and review of studies; arranging urgent treatment with development of a management plan; evaluation of patient's response to treatment; frequent reassessment; and discussions with other providers. It was exclusive of separately billable procedures and treating other patients and teaching time. Please see Assessment and Plan section and the rest of the note for further information on patient assessment and treatment Subjective Date/time seen: 01/18/22 11:34 Interval history: Reason for consult: High degree AV block, syncope 01/17/2022 status post permanent dual-chamber pacemaker implantation 01/18/2022: Patient seen and examined the ICU, is awake, alert, states she feels much better. Denies any chest pain, shortness a breath, abdominal pain, nausea, vomiting. She states she feels is little anxious and is requesting for Atarax, she does not want to take any benzos. Patient is currently in paced rhythm, hemodynamically stable, adequate urine output, positive bowel movement. Urine output has been adequate Review of Systems Review of Systems: All systems reviewed & are unremarkable except as noted in HPI and below Exam Narrative: General: Very pleasant female in no acute distress, comfortable HEENT:? Pupils are equal and reactive, dry oral mucosa Neck:? Supple Respiratory:? Clear to auscultation bilaterally, slightly decreased at bases Cardiac:? Paced rhythm, Abdomen:? Soft, nondistended, nontender, normoactive bowel sounds Extremities:? No edema, palpable pedal pulses left hand is in a sling Neuro:? Patient is awake, alert, oriented x3, follows simple commands and answers to questions appropriately Skin:? Warm and dry Psych:? Normal mental status and affect Objective Data Vital Signs Vital Signs: Vital Signs - 24 hr 01/17/22 12:00 01/17/22 12:00 01/17/22 12:00 Temperature 98.3 F Pulse Rate 37 L 37 L Respiratory Rate 17 Blood Pressure 153/52 H Pulse Oximetry 99 94 Oxygen Delivery Room Air 01/17/22 15:29 01/17/22 15:
--- NOTE | 2022-01-18 12:23 | PM.PNCARD ---
Progress Note: A&P Assessment and Plan (1) CHB (complete heart block): Code(s): I44.2 - Atrioventricular block, complete Status: Acute Assessment and Plan: S/p dual chamber PPM yesterday with no complications. 100% V paced. Awaiting 24 hour chest XR to ensure no pneumothorax, if CXR looks okay she can be discharged home today. She should be ambulated to make sure she tolerates this before going home, has not been OOB since her procedure yesterday. Reviewed pacemaker restrictions with her and other post pacemaker care instructions including wound care. (2) Syncope: Code(s): R55 - Syncope and collapse Status: Acute Assessment and Plan: Secondary to above. Subjective Date/time seen: 01/18/22 12:23 Cardiology follow up for complete heart block, s/p PPM placement yesterday Feeling well today. States she feels some anxiety but otherwise has no complaints. She does not have any pain at pacemaker insertion site. No shortness of breath. Review of Systems Constitutional: Constitutional: Reports no additional constitutional complaints and Reports weakness Eyes: Eyes: Reports no additional eye complaints ENT: Reports system reviewed and no additional complaints, except as documented Respiratory: Respiratory: Reports no additional respiratory complaints Gastrointestinal: Gastrointestinal: Reports no additional gastrointestinal complaints Musculoskeletal: Musculoskeletal: Reports no additional musculoskeletal complaints Integumentary/Breasts: Skin/Breast: Reports system reviewed and no additional complaints, except as docu Neurologic: Reports as per HPI and Reports weakness Endocrine: Endocrine: Reports no additional endocrine complaints Hematologic/Lymphatic: Hematologic/Lymphatic: Reports no additional hematologic/lymphatic complaints Allergic/Immunologic: Allergic/Immunologic: Reports no additional allergic/immunologic complaints Exam Const: General: comfortable and no acute distress HENMT: Mouth: Yes moist mucous membranes Eyes: Sclera: sclerae normal Neck: Neck: supple and no JVD Carotids: normal carotid upstroke and no bruits Other: Resp: Effort & Inspection: normal respiratory effort Auscultation: clear to auscultation bilaterally Cardio: Rate: regular rate Rhythm: regular rhythm Heart sounds: S1 normal heart sound present, S2 normal heart sound present and no murmurs GI: Auscultation: normal bowel sounds Skin: General skin exam: normal color Other: L upper chest PPM dressing clean, dry, and intact. No surrounding hematoma or erythema. Neuro: Other: alert and oriented x3 normal cognition Extrem: Other: normal pulses, no edema Objective Data Vital Signs Vital Signs: Vital Signs - 24 hr 01/17/22 15:29 01/17/22 15:52 01/17/22 16:00 Temperature 36.7 C Pulse Rate 71 67 Respiratory Rate 16 Blood Pressure 126/74 Pulse Oximetry 96 99 Oxygen Delivery Room Air 01/17/22 16:00 01/17/22 16:29 01/17/22 18:00 Temperature 36.7 C Pulse Rate 67 60 77 Respiratory Rate 22 H 16 Blood Pressure 128/73 127/73 Pulse Oximetry 94 98 Oxygen Delivery 01/17/22 18:00 01/17/22 20:07 01/17/22 20:14 Temperature Pulse Rate 77 77 77 Respiratory Rate 25 H 25 H Blood Pressure 137/80 Pulse Oximetry 95 95 Oxygen Delivery Room Air 01/17/22 20:14 01/17/22 21:58 01/17/22 21:58 Temperature 36.7 C 36.6 C Pulse Rate 78 60 60 Respiratory Rate 21 H 23 H Blood Pressure 148/68 H Pulse Oximetry 95 95 Oxygen Delivery 01/18/22 00:00 01/18/22 00:00 01/18/22 00:00 Temperature Pulse Rate 80 80 69 Respiratory Rate 18 18 Blood Pressure 166/74 H Pulse Oximetry 95 95 Oxygen Delivery Room Air 01/18/22 02:00 01/18/22 02:00 01/18/22 04:00 Temperature Pulse Rate 69 60 60 Respiratory Rate 22 H Blood Pressure Pulse Oximetry 94 Oxygen Delivery 01/18/22 04:00 01/18/22 06:00 01/18/22 06:00
--- NOTE | 2022-01-18 16:49 | PM.DS ---
DS: Admitting Diagnosis Discharge Date 01/18/22 Admitting Diagnosis (1) CHB (complete heart block): ?Code(s): I44.2 - Atrioventricular block, complete ?Status:?Acute ?Assessment and Plan: ?admit to ICU (2) Syncope: ?Code(s): R55 - Syncope and collapse ?Status:?Acute ?Assessment and Plan: ? (3) Hypertension: ?Code(s): I10 - Essential (primary) hypertension ?Status:?Acute ?Assessment and Plan: DS: Discharge Diagnosis Discharge Diagnosis (1) Elevated LFTs: Code(s): R79.89 - Other specified abnormal findings of blood chemistry Status: Acute (2) Hypertension: Code(s): I10 - Essential (primary) hypertension Status: Acute (3) CHB (complete heart block): Code(s): I44.2 - Atrioventricular block, complete Status: Acute (4) Syncope: Code(s): R55 - Syncope and collapse Status: Acute (5) AV block, Mobitz 1: Code(s): I44.1 - Atrioventricular block, second degree Status: Acute (6) Hypertension: Code(s): I10 - Essential (primary) hypertension Status: Acute DS: Summary Hospital Course Reason for hospitalization: Chief Complaint: Syncope Narrative: ?This is an 81-year-old female with past medical history significant for hypertension, left bundle branch block, rheumatoid arthritis. patient presents to the emergency room after she had syncopal episode x3 had some lightheadedness, denied any chest pain, shortness of breath, diaphoresis, she has been her usual state of health up until this time denies any incontinence of sphincters, nausea, vomiting, abdominal pain, fevers, rigors, chills, leg swelling, ? PND, orthopnea.? Preliminary workup was significant for EKG with second-degree AV block which eventually progressed to complete AV block.? Patient is placed on dopamine drip and any and? admitted to intensive care unit Hospital Course: (1) CHB (complete heart block): ?admit to ICU ?currently on dopamine drip , Cardiology has been consulted S/p dual chamber PPM with no complications.? 100% V paced.? Awaiting 24 hour chest XR to ensure no pneumothorax, if CXR looks okay she can be discharged home She should be ambulated to make sure she tolerates this before going home ?echocardiogram in a.m. 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 Normal sonographic study of the gallbladder -LFTs trending down dc pt home in stable condition w indications to follow-up with her PCP within a week and return to Cardiology as directed Status at Discharge Functional status at discharge: independent ambulation Overall status at discharge: patient is back to baseline Time Spent with Patient Time attestation: Total time spent providing and/or coordinating discharge services: Exam Narrative: Const:?? General: comfortab le and no acute di stress HENMT:?? Mouth: Yes moist m ucous membranes Eyes:?? Sclera: sclerae no rmal Neck:?? Neck: supple and n o JVD? Carotids: n ormal carotid upst roke and no bruits
== END 2022-01-18 18:59 | disposition home or self-care (01) | DRG 244 ==
LOC: ANHED 01-17 01:05 → ANHICU 01-17 01:34
PROVIDERS: Internal Medicine; Specialist; Admitting Provider Internal Medicine; Emergency Provider Preventive Medicine Aerospace Medicine; Visit Provider Hospitalist
PROC: 0JH606Z Insertion of Pacemaker, Dual Chamber into Chest Subcutaneous Tissue and Fascia, Open Approach (ICD-10-PCS; CPT 33208; principal; 2022-01-17 13:00)
DX: I44.2 Atrioventricular block, complete (principal); I44.1 Atrioventricular block, second degree; W19.XXXA Unspecified fall, initial encounter; R79.89 Other specified abnormal findings of blood chemistry; I10 Essential (primary) hypertension; M06.9 Rheumatoid arthritis, unspecified; Z79.82 Long term (current) use of aspirin; Z79.899 Other long term (current) drug therapy; Z87.891 Personal history of nicotine dependence
CPT/HCPCS: 33208; 36415; 70450; 71045; 71046; 72125; 76705; 80053; 80074; 81001; 82948; 83735; 84100; 84484; 85025; 85610; 85730; 87086; 93005; 93306; 96365; 96366; 96375; 96376; 99285; A9270; C1779; C1785; C1894; G0378; J0461; J1250; J1265; J1644; J2250; J2930; J3010; J3370; J7040

== ENCOUNTER 2022-01-21 08:20 | Emergency (ER) | payer MEDICARE, BC, SELFPAY ==
--- NOTE | ~2022-01-21 | US_ITS ---
EXAMINATION: US venous doppler UE DATE: 01/21/2022 09:02 INDICATION: Left hand swelling TECHNIQUE: Christensen scale images with and without compression and Doppler images of the left upper extrem ity veins were obtained. COMPARISON: None. FINDINGS: The left internal jugular vein, subclavian vein, axillary vein, brachial veins, basilic vein, radial vein, and ulnar vein are patent. There is a superficial vein thrombosis of the cephalic vein. IMPRESSION: 1. Patent left upper extremity deep veins. No evidence of deep venous thrombosis. 2: Superficial venous thrombosis of the left cephalic vein. Reviewed, dictated and finalized at location A. IMPRESSION: 1. Patent left upper extremity deep veins. No evidence of deep venous thrombosi s. 2: Superficial venous thrombosis of the left cephalic vein.
--- NOTE | ~2022-01-21 | XR_ITS ---
EXAMINATION: XR hand LT min 3V DATE: 01/21/2022 09:03 INDICATION: Left hand pain and swelling. TECHNIQUE: 3 views of left hand were obtained. COMPARISON: None. FINDINGS: Bone alignment is normal. There is a calcification dorsal to the carpus on the lateral view . There is mild osteoarthritis of triscaphe joint and moderate osteoarthritis of first carpometacarpa l joint. There is mild osteoarthritis of some of the metacarpophalangeal joints and interphalangeal j oints. There is moderate osteoarthritis of second proximal interphalangeal joint. There are dystrophi c calcifications in the wrist. IMPRESSION: 1. Polyarticular osteoarthritis. 2. Calcification dorsal to the carpus on the lateral view, which may be an avulsion fracture of dorsa l pole of triquetrum or a loose body. Reviewed, dictated and finalized at location A. IMPRESSION: 1. Polyarticular osteoarthritis. 2. Calcification dorsal to the carpus on the lateral view, which may be an avul abraham fracture of dorsal pole of triquetrum or a loose body.
--- NOTE | ~2022-01-21 | XR_ITS ---
EXAMINATION: XR hip LT 2V w AP pelvis DATE: 01/21/2022 10:52 INDICATION: Left hip pain. TECHNIQUE: An anteroposterior view of the pelvis and 2 views of left hip were obtained. COMPARISON: Pelvis radiograph 04/20/2006 FINDINGS: There is lumbar levoscoliosis and severe spondylosis. No fracture. There is a total right h ip arthroplasty in near-anatomic alignment. There is mild left hip osteoarthritis. Osteitis pubis is noted. IMPRESSION: 1. Mild left hip osteoarthritis. 2. Total right hip arthroplasty in near-anatomic alignment. Reviewed, dictated and finalized at location A.
[2022-01-21 08:38] VITALS: BP 146/83; PULSE 100; RESP 20; TEMP 37.1; O2SAT 98
--- NOTE | 2022-01-21 08:39 | ED.EXTPRO ---
HPI - Extremity Problem General Chief complaint: Extremity Problem,Nontraumatic Stated complaint: L. hand swelling. Time Seen by Provider: 01/21/22 08:25 History of Present Illness HPI Narrative: 81-year-old female presented the emergency department for evaluation of left hand pain and swelling. Patient had a recent heart cath and placement of a dual-chamber pacemaker. For cardiac catheterization patient was accessed through the right femoral. for the pacemaker did require access to the left subclavian vein. Patient reports he did have a fall on Monday and has had the left hand immobilized until yesterday when she was able to take out and play cards. Patient states after playing cards she was having increased tightness of the hand and that when she woke up this morning she had swelling of the left hand. Patient is also complaining of some pain at the left hip. Related Data Home Medications Medication Instructions Recorded Confirmed amlodipine 10 mg tablet 2.5 mg PO DAILY 11/21/19 01/17/22 aspirin 81 mg chewable tablet 81 mg PO DAILY 01/17/22 01/17/22 Allergies Allergy/AdvReac Type Severity Reaction Status Date / Time Horse/Equine Containing Allergy Severe Anaphylactic Verified 01/17/22 12:35 Products Shock shellfish derived Allergy Severe SWELLING Verified 01/16/22 21:56 lidocaine Allergy Mild TACHYCARDIA Verified 01/16/22 21:56 Penicillins Allergy Unknown Hives Verified 01/16/22 21:56 Sulfa (Sulfonamide Allergy Unknown Hives Verified 01/16/22 21:56 Antibiotics) tetracycline Allergy Unknown Hives Verified 01/16/22 21:56 codeine AdvReac Mild CONFUSION Verified 01/16/22 21:56 Contrast Media Allergy Severe TACHYCARDIA Uncoded 09/23/17 10:57 Horse Serum Proteins Allergy Severe PRONOUNCED Uncoded 09/23/17 10:57 ON ARRIVAL AT ER IN 1950S Review of Systems Review of Systems: CONSTITUTIONAL: Denies fever, chills, or sweats. EYES: Denies visual changes, redness, or discharge. ENT: Denies rhinorrhea, congestion, sore throat, or otalgia. CARDIOVASCULAR: Denies chest pain, palpitations, or edema. RESPIRATORY: Denies cough or dyspnea. GASTROINTESTINAL: Denies abdominal pain, nausea, vomiting, or diarrhea. GENITOURINARY: Denies dysuria or hematuria. SKIN: Denies rash or itching. MUSCULOSKELETAL: See HPI NEUROLOGIC: Denies headache, numbness, or weakness. [facility] Past Medical History Medical History (Updated 01/21/22 @ 10:12 by Rowdy Fuller MD) Hypertension LBBB (left bundle branch block) Neoplasm of leg Rheumatoid arthritis Surgical History Surgical History History of knee surgery Family History Family History (Updated 01/17/22 @ 02:15 by Arnaldo Booker RN) Father Cancer Mother Cancer Other Hypertension Social History Social History Smoking packs per day: 0.5 Smoking cigarettes per day: 10.0 Years smoked: 20 Smoking pack-years: 10.00 Smoking status: Former smoker Tobacco type: cigarettes Alcohol intake: never Substance use: never Substance use type: does not use Spiritual care concerns: No Exam Narrative: APPEARANCE: Well appearing, no pain, no distress, well-nourished. HEAD: normocephalic, atraumatic. EYES: PERRLA/EOMI, conjunctivae clear. NOSE: Normal no drainage NECK: Supple. No adenopathy, no masses. RESPIRATORY: Airway patent, respirations nonlabored. Clear to auscultation bilaterally, no rales, rhonchi, wheezing. CARDIOVASCULAR: Regular rate and rhythm without murmurs rubs or gallops. ABDOMINAL: Soft, nontender, nondistended, normal bowel sounds MUSCULOSKELETAL: Moves all extremities. Swelling of left hand and tenderness of left wrist. Strong cap refill. No associated erythema NEURO: Alert. Cranial nerves II through XII intact. Grossly intact SKIN: Warm, dry. Normal Color Course Course Emergency Course: Ultrasound was n
[2022-01-21 09:46] LABS: Basophils Percent Auto 0.3 % (0.2-1.2); Eosinophils Absolute Auto 0.1 K/mm3 (0-0.3); Eosinophils Percent Auto 0.6 % (0-4.4); Hematocrit 41.8 % (37.0-47.0); Hemoglobin 14.2 g/dL (12.0-15.0); Immature Granulocyte Absolute 0.05 K/mm3 (0.00-0.031); Immature Granulocyte Percent A 0.4 % (0-0.5); Lymphocytes Percent Auto 15.4 % (18.3-44.2); Mean Corpuscular Hemoglobin 32.4 pg (26-34); Mean Corpuscular Volume 95.4 fl (80-100); Mean Platelet Volume 9.3 fl (7.4-10.4); Monocytes Absolute Auto 1.5 K/mm3 (0.1-0.6); Neutrophils Absolute Auto 8.8 K/mm3 (1.3-6.7); Neutrophils Percent Auto 71.3 % (45.5-73.1); Platelet Count Result 227 k/mm3 (150-375); Red Blood Count 4.38 M/mm3 (4.2-5.4); Red Cell Distribution Width 12.7 % (11.5-14.5); White Blood Count 12.4 K/mm3 (4.5-10.0)
[2022-01-21 09:48] LABS: Alanine Aminotransferase 45 U/L (6-35); Albumin Level 3.8 g/dL (3.5-5.1); Alkaline Phosphatase 84 U/L (38-126); Anion Gap 10 mmol/L (8-16); Aspartate Amino Transferase 27 U/L (14-36); Bilirubin,Total 2.5 mg/dL (0.2-1.3); Blood Urea Nitrogen 17 mg/dL (7-17); Calcium 9.4 mg/dL (8.4-10.2); Carbon Dioxide 28 mmol/L (22-30); Chloride 101 mmol/L (98-107); Estimated CRCL calculation 41 ml/min; Estimated Glomerular Filt Rate 60; Glucose 141 mg/dL (65-110); Potassium 3.3 mmol/L (3.4-5.0); Sodium 139 mmol/L (137-145)
[2022-01-21] MEDS: HYDROcodone/acetaminophen (*CRX) 5-325 MG TABLET 1 TAB PO (11:12)
== END 2022-01-21 11:41 | disposition home or self-care (01) ==
PROVIDERS: Emergency Provider Emergency Medicine
DX: S62.112A Displaced fracture of triquetrum [cuneiform] bone, left wrist, initial encounter for closed fracture (principal); M25.552 Pain in left hip; I82.612 Acute embolism and thrombosis of superficial veins of left upper extremity; I10 Essential (primary) hypertension; M06.9 Rheumatoid arthritis, unspecified; I44.7 Left bundle-branch block, unspecified; Z79.82 Long term (current) use of aspirin; Z87.891 Personal history of nicotine dependence; W19.XXXA Unspecified fall, initial encounter
CPT/HCPCS: 29125; 36415; 73130; 73502; 80053; 85025; 93971; 99284; A4565; A9270

== ENCOUNTER 2022-02-25 09:29 | Emergency (ER) | payer MEDICARE, BC, SELFPAY ==
[2022-02-25] VITALS (38 sets, daily range): BP systolic 132–167; BP diastolic 61–98; PULSE 71–99; RESP 6–26; TEMP 36.9; O2SAT 95–100
--- NOTE | ~2022-02-25 | XR_ITS ---
EXAMINATION: XR chest 2V DATE: 02/25/2022 10:46 INDICATION: Chest pain. Back pain. TECHNIQUE: Frontal and lateral views of the chest were obtained. COMPARISON: Chest 2 views 01/18/2022 FINDINGS: There is mild atelectasis in the lower lung zones. No pleural effusion or pneumothorax. The heart size is normal. There is a left chest wall pacer with leads in the right atrium and right vent ricle. IMPRESSION: 1. Mild atelectasis in the lower lung zones. Reviewed, dictated and finalized at location A. ESTATE INSTRUCTOR
--- NOTE | ~2022-02-25 | NM_ITS ---
EXAMINATION: NM pulmonary perfusion DATE: 02/25/2022 13:34 INDICATION: Pleuritic chest pain. TECHNIQUE: 5.5 mCi Tc-99m MAA was administered intravenously for perfusion images. Scintigraphic mina ges of the chest were obtained. COMPARISON: Chest 2 views 02/25/2022 FINDINGS: Perfusion images show small defects in the lower lobes. IMPRESSION: 1. Pulmonary embolism absent (low probability). Reviewed, dictated and finalized at location A. ETIC CONSULTANT
--- NOTE | 2022-02-25 09:42 | ECG_ITS ---
Measurements Intervals Dailey Rate: 92 P: 45 WY: 223 QRS: 253 QRSD: 142 T: 52 QT: 398 QTc: 493 Interpretive Statements ATRIAL SENSE- ELECTRONIC VENTRICULAR PACEMAKER BASELINE ARTIFACT- I NO FURTHER INTERPRETATION IS POSSIBLE ATYPICAL ECG COMPARED TO ECG 01/17/2022 15:32:47 NO SIGNIFICANT CHANGES Electronically Signed On 02-25-2022 12:26:13 [employer] by Oliverio Roberts D.O.
--- NOTE | 2022-02-25 10:04 | ED.BACK ---
HPI - Back Pain/Injury General Chief Complaint: Back Pain/Injury <Caroline Hunt PA-C - Last Filed: 02/25/22 16:50> Stated Complaint: upper back pain since yesterday <SYLWIA Wiseman Last Filed: 02/25/22 16:50> Time Seen by Provider: 02/25/22 09:43 <SYLWIA Wiseman Last Filed: 02/25/22 16:50> Source: patient <SYLWIA Wiseman Last Filed: 02/25/22 16:50> Mode of arrival: ambulatory <SYLWIA Wiseman Last Filed: 02/25/22 16:50> Limitations: no limitations <SYLWIA Wiseman Last Filed: 02/25/22 16:50> History of Present Illness HPI Narrative: This is an 81-year-old female that presents emergency department for back pain present since yesterday. Reports mid back pain around the shoulder blades that is worse with breathing and certain movements. Also reports pain in her bilateral shoulders. The pain is sharp in nature. Reports she has not taken anything today yet for pain. Denies chest pain, shortness of breath, abdominal pain, or focal numbness or weakness. <SYLWIA Wiseman Last Filed: 02/25/22 16:50> Related Data Home Medications: Home Medications Medication Instructions Recorded Confirmed amlodipine 10 mg tablet 2.5 mg PO DAILY 11/21/19 02/11/22 aspirin 81 mg chewable tablet 81 mg PO DAILY 01/17/22 02/11/22 <Caroline Hunt PA-C - Last Filed: 02/25/22 16:50> Allergies/Adverse Reactions: Allergies Allergy/AdvReac Type Severity Reaction Status Date / Time Horse/Equine Containing Allergy Severe Anaphylactic Verified 02/25/22 09:56 Products Shock shellfish derived Allergy Severe SWELLING Verified 02/25/22 09:56 lidocaine Allergy Mild TACHYCARDIA Verified 02/25/22 09:56 Penicillins Allergy Unknown Hives Verified 02/25/22 09:56 Sulfa (Sulfonamide Allergy Unknown Hives Verified 02/25/22 09:56 Antibiotics) tetracycline Allergy Unknown Hives Verified 02/25/22 09:56 codeine AdvReac Mild CONFUSION Verified 02/25/22 09:56 Contrast Media Allergy Severe TACHYCARDIA Uncoded 02/25/22 09:56 Horse Serum Proteins Allergy Severe PRONOUNCED Uncoded 02/25/22 09:56 ON ARRIVAL AT ER IN 1950S <Caroline Hunt PA-C - Last Filed: 02/25/22 16:50> Review of Systems Review of Systems: CONSTITUTIONAL: Denies fever CARDIOVASCULAR: Denies chest pain, or edema. RESPIRATORY: Denies cough or dyspnea. GASTROINTESTINAL: Denies abdominal pain SKIN: Denies rash MUSCULOSKELETAL: Reports back pain, joint pain, and myalgia. NEUROLOGIC: Denies numbness, or weakness. <Caroline Hunt PA-C - Last Filed: 02/25/22 16:50> All systems reviewed & are unremarkable except as noted in HPI and below <Caroline Hunt PA-C - Last Filed: 02/25/22 16:50> [facility] Past Medical History Medical History: Medical History Acute pain of left knee Arthritis of foot Complex tear of lateral meniscus, current injury, left knee, subsequent encounter Complex tear of medial meniscus, current injury, left knee, subsequent encounter Effusion of left knee Foot pain, left Hallux varus (acquired), left foot Hallux varus (acquired), right foot Hypertension LBBB (left bundle branch block) Left wrist sprain Mass of right lower leg Neoplasm of leg Rheumatoid arthritis Rheumatoid arthritis without rheumatoid factor, left ankle and foot Right foot pain <Caroline Hunt PA-C - Last Filed: 02/25/22 16:50> Surgical History Surgical History: Surgical History History of knee surgery <SYLWIA Wiseman Last Filed: 02/25/22 16:50> Family History Family History: Family History Father Cancer Mother Cancer Other Hypertension <SYLWIA Wiseman Last Filed: 02/25/22 16:50> Social History Social History: Social History (Reviewed 02/11/22 @ 09:
[2022-02-25 10:29] LABS: Basophils Absolute Auto 0.1 K/mm3 (0.0-0.1); Basophils Percent Auto 0.6 % (0.2-1.2); Eosinophils Absolute Auto 0.2 K/mm3 (0-0.3); Eosinophils Percent Auto 2.2 % (0-4.4); Hematocrit 38.9 % (37.0-47.0); Immature Granulocyte Absolute 0.02 K/mm3 (0.00-0.031); Immature Granulocyte Percent A 0.2 % (0-0.5); Lymphocytes Absolute Auto 1.71 K/mm3 (0.9-3.2); Lymphocytes Percent Auto 20.1 % (18.3-44.2); Mean Corpuscular HGB Conc 33.4 g/dl (32-36); Mean Corpuscular Hemoglobin 32.2 pg (26-34); Mean Corpuscular Volume 96.3 fl (80-100); Mean Platelet Volume 8.5 fl (7.4-10.4); Monocytes Absolute Auto 0.8 K/mm3 (0.1-0.6); Monocytes Percent Auto 9.5 % (2.6-8.5); Neutrophils Absolute Auto 5.7 K/mm3 (1.3-6.7); Neutrophils Percent Auto 67.4 % (45.5-73.1); Platelet Count Result 217 k/mm3 (150-375); Red Blood Count 4.04 M/mm3 (4.2-5.4); Red Cell Distribution Width 12.4 % (11.5-14.5); White Blood Count 8.5 K/mm3 (4.5-10.0)
[2022-02-25 10:37] LABS: INR 1.1; Partial Thromboplastin Time 30.6 SECONDS (22.3-36.8); Prothrombin Time 13.6 Seconds (11.1-14.7)
[2022-02-25 10:41] LABS: D Dimer 0.76 ug/mL (<0.48)
[2022-02-25 10:44] LABS: Alanine Aminotransferase 15 U/L (6-35); Albumin Level 4.1 g/dL (3.5-5.1); Alkaline Phosphatase 87 U/L (38-126); Anion Gap 10 mmol/L (8-16); Aspartate Amino Transferase 22 U/L (14-36); Bilirubin,Total 1.5 mg/dL (0.2-1.3); Blood Urea Nitrogen 18 mg/dL (7-17); Calcium 10.1 mg/dL (8.4-10.2); Carbon Dioxide 31 mmol/L (22-30); Chloride 101 mmol/L (98-107); Estimated CRCL calculation 41 ml/min; Estimated Glomerular Filt Rate > 60; Glucose 111 mg/dL (65-110); Lipase 90 U/L (23-300); Potassium 3.9 mmol/L (3.4-5.0); Sodium 142 mmol/L (137-145)
[2022-02-25] MEDS: ASPIRIN 81 MG CHEWABLE TABLET 324 MG PO (10:49)
[2022-02-25] MEDS: ACETAMINOPHEN 500 MG TABLET 1000 MG PO (10:50)
[2022-02-25 10:56] LABS: Troponin I 0.012 ng/mL (0.000-0.034)
--- NOTE | 2022-02-25 11:44 | PC.NURSE ---
Patient report received from SRUTHI Pinon. All questions answered and care of patient assumed. Patient resting quietly in stretcher with no complaints. Awaiting nuclear testing. Caregiver at bedside. Call-light within reach. VSS.
--- NOTE | 2022-02-25 13:20 | PC.NURSE ---
Patient off unit to [place].
[2022-02-25 14:08] LABS: Troponin I 0.024 ng/mL (0.000-0.034)
--- NOTE | 2022-02-25 16:16 | PC.NURSE ---
Contacted [employer] for PPM interrogation.
[2022-02-25 16:31] LABS: Troponin I 0.017 ng/mL (0.000-0.034)
== END 2022-02-25 17:19 | disposition home or self-care (01) ==
PROVIDERS: Physician Assistant; Emergency Provider Emergency Medicine
DX: M54.6 Pain in thoracic spine (principal); R07.9 Chest pain, unspecified; I10 Essential (primary) hypertension; M06.9 Rheumatoid arthritis, unspecified; Z87.891 Personal history of nicotine dependence; Z79.82 Long term (current) use of aspirin; Z79.899 Other long term (current) drug therapy
CPT/HCPCS: 36415; 71046; 78580; 80053; 83690; 84484; 85025; 85380; 85610; 85730; 93005; 99284; A9270; A9540

== ENCOUNTER 2022-11-08 12:22 | Outpatient (CLI) | payer MEDICARE, BC, SELFPAY ==
--- NOTE | ~2022-11-08 | XR_ITS ---
Left Knee Technique: AP, lateral, and sunrise views were obtained. Clinical History: Arthroplasty COMPARISON: 09/16/2019 Findings: No fracture or dislocation is seen. Patient is status post interval lateral compartment hem iarthroplasty. There is mild degenerative spurring at the medial joint line.. Soft tissues are unrema rkable. No joint effusion is seen. Impression: Status post lateral compartment hemiarthroplasty. Degenerative spurring at the medial joint line. Reviewed, dictated and finalized at location . Impression: Status post lateral compartment hemiarthroplasty. Degenerative spurring at the medial joint line.
== END 2022-11-08 12:23 | disposition home or self-care (01) ==
DX: Z96.652 Presence of left artificial knee joint (principal)
CPT/HCPCS: 73562

== ENCOUNTER 2022-12-20 09:45 | Outpatient (RCR) | payer MEDICARE, BC, SELFPAY ==
--- NOTE | 2022-10-04 13:25 | OTOPEVAL1 ---
Assessment and note entered by Zia Schaefer, CAROLYN/Judi, CHT Evaluation Information Assessment Status Evaluation Diagnosis Decreased ROM left hand following a fall Onset 01/16/23 Subjective Information Patient fell after a cardiac arrest event. She sustained fractures in her left hand and wrist. She had been working with therapy in [place], where she lives in the winter. She is back in this area and wanted to start therapy again here. She reports functional deficits with fine motor tasks such as buttons, zippers, and holding a fork in that hand while the right hand cuts with a knife. Reported Pain Level Pain Score 0: Self Report Additional Pain Score Comments Patient reports pain ranges from 4-10/10 with ROM/ use. Assessment OT Clinical Summary Patient referred to outpatient hand therapy with decreased functional hand ROM following injuries sustained in January 2022. 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 Skilled OT indicated to maximize hand function through therapeutic exercise, manual therapy, modalities, therapeutic activities, and HEP instruction/progression. May also address trigger finger with splinting as needed. Plan of Care Interventions Therapeutic Exercise,Manual Therapy,Therapeutic Activities,Check Out for Orthotic/Pr,Ultrasound, Paraffin OT Services Indicated Yes Treatment Frequency and 1-2x/week for 5 weeks Duration These treatments will address the objective and functional deficits as defined above. The patient will be advanced safely and appropriately in order for the patient to progress towards his/her prior level of function. Additional exercises will be introduced and as well as a comprehensive home exercise program upon discharge, if needed, ?to ensure carryover of functional gains achieved in the clinic. This treatment plan has been reviewed and agreement upon by the patient.
--- NOTE | 2022-10-04 13:26 | OPREHPOC ---
Outpatient Therapy Plan of Care This is a Multidisciplinary Plan of Care that may contain components documented by all disciplines (PT, OT, and ST.) OT Problem 1 OT Problem #1 Knowledge Deficit OT Goal 1 Goal 1. Patient to be independent with instructed materials. Target Visit 6 OT Problem 2 OT Problem #2 Pain OT Goal 1 Goal 1. Patient to report reduced hand pain to less than 5/10 when actively flexing the fingers. Target Visit 6 OT Problem 3 OT Problem #3 Impaired Range of Motion OT Goal 1 Goal 1. Patient to be able to make a functional fist, as demonstrated by having no gap between the fingers and the palm. 2. Patient to be able to make a functional hook fist, as demonstrated by having less than 2 gap between the fingers and the DPC. Target Visit 6
--- NOTE | 2022-10-07 10:54 | PCOTNOTE ---
Patient did not show up for scheduled appointment this date. Called patient and she did not answer. Left voicemail reminding her of her next appt.
--- NOTE | 2022-11-15 11:43 | OTOPPROG ---
Assessment and note entered by Zia Schaefer, OTR/Judi, CHT Evaluation Information Assessment Status Progress Diagnosis Decreased ROM left hand following a fall Onset 01/16/22 Subjective Information Marisol reports functional progress with the left hand. She reports she is now able to lift her pots /pans and get a casserole dish out of the oven, able to use left hand to use a sponge, and she has progressed to being able to do buttons now. She states it takes me a while, but I can do it . She is also now able to squeeze her toothpaste. She reports still being limited in being able to do her hair, use a curling iron and being able to hold cards. She is having overall less pain as well. Patient is making excellent progress toward regaining functional ROM of the left hand. When trying to make a fist, the index finger is 2 cm away from touching the palm. Middle, ring, and small fingers are all now touching the palm. At the start of care she was measuring 2-4 cm gaps between her finger tips and the palm. Progress has been a little stalled due to the development of a trigger finger on her ring finger. She has an appointment with a hand surgeon (11/25) for a cortisone injection. Assessment OT Clinical Summary Patient referred to outpatient hand therapy with decreased functional hand ROM following injuries sustained in January 2022. 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 She is making excellent progress toward regaining a functional fist. Continued skilled OT indicated to maximize hand function through therapeutic exercise, manual therapy, modalities, therapeutic activities, and HEP instruction/progression. Plan of Care Interventions Therapeutic Exercise,Manual Therapy,Therapeutic Activities,Check Out for Orthotic/Pr,Ultrasound, Paraffin OT Services Indicated Yes Treatment Frequency and 1-2x/week for 5 weeks Duration These treatments will address the objective and functional deficits as defined above. The patient will be advanced safely and appropriately in order for the patient to progress towards his/her prior level of function. Additional exercises will be introduced and as well as a comprehensive home exercise program upon discharge, if needed, ?to ensure carryover of functional gains achieved in the clinic. This treatment plan has
--- NOTE | 2022-11-22 15:16 | PCOTNOTE ---
Patient arrived to her appointment at the wrong time today. She states she is unable to make it at the later time and cancelled the appointment.
--- NOTE | 2022-12-01 08:34 | PCOTNOTE ---
Late note for appointment on 11/29/22: Patient's treatment was cancelled due to the therapist being out sick.
--- NOTE | 2022-12-22 11:38 | PCOTNOTE ---
Patient did not show up for scheduled appointment this date. Called patient and she did not answer. Left voicemail regarding next appointment.
--- NOTE | 2022-12-27 15:34 | PCOTNOTE ---
This treatment is being continued on visit number [id number]. Please see documentation on both accounts to view progress. Completed interventions, outcomes, and problems have been marked as Inactive to facilitate the copying of the Care plan routine for recurring accounts.
== END 2022-12-26 10:11 | disposition home or self-care (01) ==
LOC: ANHOT 09:45
DX: R29.898 Other symptoms and signs involving the musculoskeletal system (principal); W19.XXXA Unspecified fall, initial encounter
CPT/HCPCS: 73562; 97018; 97035; 97039; 97110; 97140; 97165; 99199

== ENCOUNTER 2023-01-10 11:03 | Outpatient (RCR) | payer MEDICARE, BC, SELFPAY ==
--- NOTE | 2022-12-27 15:35 | PCOTNOTE ---
The treatment documented on this account is a continuation of the treatment documented on visit number [id number]. Please see documentation on both accounts to view progress. The Plan of Care has been transitioned and updated within the new V#. I have addressed and agree with the discipline specific Problems, Interventions, and Goals for the current certification period. Completed interventions, outcomes, and problems have been marked as Inactive to facilitate the copying of the Care plan routine for recurring accounts.
--- NOTE | 2023-01-10 11:49 | OTOPPROG ---
Assessment and note entered by Zia Schaefer, CAROLYN/Judi, CHT Progress Update 01/10/23 Assessment Status Progress Diagnosis Decreased ROM left hand following a fall Onset 01/16/22 Subjective Information Marisol reports functional progress with the left hand. She states she is now using that hand without thinking about it, which she reports has been a big step with her progress. States she continues to have her ring finger triggering with any sort of gross gripping with resistance. Patient is making continued progress toward regaining functional ROM of the left hand. When trying to make a fist, the index finger is 2 cm away from touching the palm. Middle, ring, and small fingers are all now touching the palm. At the start of care she was measuring 2-4 cm gaps between her finger tips and the palm. Progress has been a little stalled due to the development of a trigger finger on her ring finger, however the trigger finger is improving, having less pain. She continues to have triggering with gross gripping tasks. 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 (L) publications distribution clerk strength improved to 47 lbs. Assessment OT Clinical Summary Patient referred to outpatient hand therapy with decreased functional hand ROM following injuries sustained in January 2022. 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 She is making progress toward regaining a functional fist and regaining functional publications distribution clerk strength. Continued skilled OT indicated to maximize hand function through therapeutic exercise, manual therapy, modalities, therapeutic activities, and HEP instruction/ progression. Plan of Care Interventions Therapeutic Exercise,Check Out for Orthotic/Pr, Ultrasound,Paraffin,Manual Therapy,Therapeutic Activities OT Services Indicated Yes Treatment Frequency and 1-2x/week for 3 weeks Duration Patient going back to [place] for the winter and may be leaving as early as next week. These treatments will address the objective and functional deficits as defined above. The patient will be advanced safely and appropriately in order for the patient to progress towards his/her prior level of function. Additional exercises will be introduced and as well as a comprehensive home
--- NOTE | 2023-01-16 15:05 | OTOPDC ---
Assessment and note entered by Zia Schaefer, OTYoav/Judi, CHT Discharge Note 01/16/23 OT Clinical Summary Patient being discharged today due to moving back to [place] for the winter. Please refer to most recent progress note, dated 01/10/23, for latest evaluation summary.
== END 2023-03-14 12:18 | disposition home or self-care (01) ==
LOC: ANHOT 11:03
DX: R29.898 Other symptoms and signs involving the musculoskeletal system (principal); W19.XXXA Unspecified fall, initial encounter
CPT/HCPCS: 97018; 97110; 97140; 99199

== ENCOUNTER 2023-09-18 09:43 | Outpatient (CLI) | payer MEDICARE, BC, SELFPAY ==
--- NOTE | ~2023-09-18 | MM_ITS ---
EXAMINATION: MM screening marlen BI w frantz HISTORY: Screening TECHNIQUE: Craniocaudal and mediolateral oblique 3-D tomosynthesis images were obtained and synthetic 2-D images were generated. CAD analysis was submitted and interpreted. COMPARISON: Comparison to multiple prior studies sequentially, with oldest reviewed study dated 01/07. BREAST PARENCHYMAL COMPOSITION: Not dense: There are scattered areas of fibroglandular density. FINDINGS: There is no evidence of suspicious mass, calcification, or architectural distortion to sugg est malignancy in either breast. There has been no suspicious interval change. IMPRESSION: 1. No mammographic evidence of malignancy. 2. Recommend routine screening mammography in one year. BI-RADS Category 1: Negative Reviewed, dictated and finalized at location B.
== END 2023-09-18 09:44 | disposition home or self-care (01) ==
DX: Z12.31 Encounter for screening mammogram for malignant neoplasm of breast (principal)
CPT/HCPCS: 77063; 77067

== ENCOUNTER 2024-01-22 13:30 | Outpatient (RCR) | payer MEDICARE, BC, SELFPAY ==
--- NOTE | 2023-10-26 09:32 | OTOPEVAL1 ---
Assessment and note entered by Zia Schaefer, OTR/L, CHT OT Evaluation Information Assessment Status Evaluation Diagnosis Trigger finger right ring finger ICD-10 Condition Codes (OT) M25.642,M79.642,M25.531 Subjective Information Patient has been experiencing a trigger finger for about a month. She received a cortisone injection to the finger in March and was having no symptoms for about 6 months, but the catching unfortunately returned. She reports 2-3/10 pain with gross gripping tasks. No pain at rest and no pain with gentle ROM. She is also reporting right ulnar sided wrist pain that becomes exacerbated with cane use. She is doing some traveling at the end of December and her goals prior to traveling include reduced left ring finger triggering during gripping tasks and being able to use a cane or her hiking poles without wrist pain. Reported Pain Level Additional Pain Score Comments (L) hand: 2-3/10 pain with gross gripping tasks. No pain at rest and no pain with gentle ROM. (R) hand: 7/10 pain with forearm rotation and wrist radial and ulnar deviation. No pain at rest. Assessment OT Clinical Summary Patient referred to OT with dx of trigger finger of the left ring finger. She also presents with right ulnar sided wrist pain that has been bothering her since she's been using her cane more often. 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 Right wrist has pain with ROM in all planes as well as with any sort of lifting, localized to the ulnar side of the wrist. Today she was instructed in ROM of the fingers, wrists, and forearms. She reports relief from use of paraffin and manual treatment as well. Trialed some k-tape on the wrist to help with pain and inflammation as she does have some slight swelling here, too. Continued treatment indicated for use of modalities, manual therapy, therapeutic exercise, and HEP instruction and progression. Plan of Care Interventions Therapeutic Exercise,Manual Therapy,Therapeutic Activities,Hot Pack/Cold Pack,Ultrasound,Paraffin OT Services Indicated Yes Treatment Frequency and 1-2x/week for 8 visits Duration These treatments will address the objective and functional deficits as defined above. The patient will be advanced safely and appropriately in order for the patient to progress towards his/her prior level of function. Additional exercises will be introduced and as well as a comprehensive home exercise program upon discharge, if needed, ?to ensure carryover of functional gains achieved in the clinic. This treatment plan has been reviewed and agreement upon by the patient.
--- NOTE | 2023-10-26 09:33 | OPREHPOC ---
Outpatient Therapy Plan of Care This is a Multidisciplinary Plan of Care that may contain components documented by all disciplines (PT, OT, and ST.) OT Problem 1 OT Problem #1 Knowledge Deficit OT Goal 1 Goal 1. Patient to be independent with instructed materials. Target Visit 8 OT Problem 2 OT Problem #2 Pain OT Goal 1 Goal 1. Patient to be able to complete gross gripping tasks with force on the right hand without pain. 2. Patient to be able to move the right wrist through all planes without pain. Target Visit 8 OT Problem 3 OT Problem #3 Impaired Strength OT Goal 1 Goal 1. Patient to be able to complete mine foreman strengthening with yellow putty without symptoms of triggering on the left ring finger. 2. Patient to be able to complete bilateral wrist strengthening in all planes with 2 lb. free weight without pain. Target Visit 8
--- NOTE | 2023-11-27 11:24 | OTOPPROG ---
Assessment and note entered by Zia Schaefer, CAROLYN/Judi, ARCHIET OT Progress Update 11/27/23 Assessment Status Progress Diagnosis Trigger finger right ring finger ICD-10 Condition Codes (OT) M25.642,M79.642,M25.531 Subjective Information Patient reports improvements in her trigger finger symptoms, reporting reduced frequency in symptoms as well as reduced severity of symptoms. She reports she continues to experience catching in the left ring finger. She has been working on her HEP as well as wearing a PIP immobilizer splint. Right ulnar sided wrist pain was diagnoses as ECU tendonitis. She has responded very well to immobilization, modalities, and strengthening. She reports experiencing less pain and is able to use her hand for light tasks without pain. She is doing some traveling at the end of December and her goals prior to traveling include reduced left ring finger triggering during gripping tasks and being able to use a cane or her hiking poles without wrist pain. Assessment OT Clinical Summary Patient referred to OT with dx of trigger finger of the left ring finger and right wrist extensor carpi ulnaris tendonitis. She is demonstrating progress with reduced bilateral pain, reduced left hand triggering, and improved right wrist strength. Continued skilled OT treatment indicated for use of modalities, manual therapy, therapeutic exercise, and HEP instruction and progression. Plan of Care Interventions Therapeutic Exercise,Manual Therapy,Therapeutic Activities,Hot Pack/Cold Pack,Ultrasound,Paraffin OT Services Indicated Yes Treatment Frequency and 1-2x/week for 8 visits Duration These treatments will address the objective and functional deficits as defined above. The patient will be advanced safely and appropriately in order for the patient to progress towards his/her prior level of function. Additional exercises will be introduced and as well as a comprehensive home exercise program upon discharge, if needed, ?to ensure carryover of functional gains achieved in the clinic. This treatment plan has been reviewed and agreement upon by the patient.
--- NOTE | 2023-11-27 11:24 | OPREHPOC ---
Outpatient Therapy Plan of Care This is a Multidisciplinary Plan of Care that may contain components documented by all disciplines (PT, OT, and ST.) OT Problem 1 OT Problem #1 Knowledge Deficit OT Goal 1 Goal / Goal Update 1. Patient to be independent with instructed materials. ---OT POC UPDATE 11/27/23--- 1. Met, continue as HEP is progressed Target Visit 16 OT Problem 2 OT Problem #2 Pain OT Goal 1 Goal / Goal Update 1. Patient to be able to complete gross gripping tasks with force on the right hand without pain. 2. Patient to be able to move the right wrist through all planes without pain. ---OT POC UPDATE 11/27/23--- 1. Progressing, continue goal 2. Progressing, continue goal Target Visit 16 OT Problem 3 OT Problem #3 Impaired Strength OT Goal 1 Goal / Goal Update 1. Patient to be able to complete sheet finisher strengthening with yellow putty without symptoms of triggering on the left ring finger. 2. Patient to be able to complete bilateral wrist strengthening in all planes with 2 lb. free weight without pain. ---OT POC UPDATE 11/27/23--- 1. Progressing, continue goal 2. Progressing, continue goal Target Visit 16
--- NOTE | 2023-12-08 07:57 | PCOTNOTE ---
Patient called and cancelled her appointment yesterday and her appointments for the next 2 weeks per MD instruction.
--- NOTE | 2024-01-22 15:55 | OTOPDC ---
Assessment and note entered by Zia Schaefer, OTR/Judi, CHT Evaluation Information Assessment Status Discharge Diagnosis Trigger finger right ring finger ICD-10 Condition Codes (OT) M25.642,M79.642,M25.531 Subjective Information -Patient reports improvements in her trigger finger symptoms, reporting reduced frequency in symptoms as well as reduced severity of symptoms. She reports she continues to experience catching in the left ring finger., however it's no longer painful. She has been working on her HEP as well as wearing a PIP immobilizer splint. -Right ulnar sided wrist pain was diagnosed as ECU tendonitis. She has responded very well to immobilization, modalities, and strengthening. She no longer has pain in the right wrist. -Right middle finger MCP pain has increased in pain since her trip to [place]. She has what appears to be a painful bone spur on the ulnar side of the middle finger MCP joint. This has responded to use of paraffin, gentle ROM, ultrasound, k-tape, and ice. This area continues to be swollen and tender. Instructed in gentle ROM and to restrict heavy gripping. Today is the patient's last day due to leaving for [place] for the winter. Reported Pain Level Pain Score 5/10 (R) middle finger MCP joint 0/10 (R) wrist 0/10 (L) hand Assessment OT Clinical Summary Patient has participated in 13 OT sessions focused on reducing pain and improving functional use of bilateral hands. The left trigger finger has progressed to no longer being painful, however she continues to experience triggering with active flexion. The right ECU tendonitis is no longer painful and she is strengthening the wrist without pain. The right middle finger has become increasingly more painful and limiting her functionally. She appears to have a painful bone spur on the ulnar side of her third MCP joint. HEP includes use of heat, gentle ROM, compression, k- tape, and ice. Instructed in limiting resistive gripping at this time to allow the pain to decrease. She is leaving later this week to spend the winter in [place], so we are discharging from OT at this time. Reviewed all materials and she demonstrates excellent understanding. D/C OT. Plan of Care OT Services Indicated No
== END 2024-01-23 08:55 | disposition home or self-care (01) ==
LOC: ANHOT 13:30
DX: M65.342 Trigger finger, left ring finger (principal); M67.833 Other specified disorders of tendon, right wrist; M25.531 Pain in right wrist; S66.312A Strain of extensor muscle, fascia and tendon of right middle finger at wrist and hand level, initial encounter
CPT/HCPCS: 97018; 97035; 97110; 97140; 97165

== ENCOUNTER 2024-03-05 15:24 | Outpatient (RCR) | payer MEDICARE, BC, SELFPAY ==
--- NOTE | 2024-03-05 16:20 | OTOPEVDC ---
Assessment and note entered by Zia Schaefer, CAROLYN/Judi, CHT Evaluation Information Assessment Status Evaluation Diagnosis Left 4th finger trigger finger, right hand weakness Subjective Information Patient presents for a 1 time visit while she is in town for the s. She has a trigger finger on the left ring finger and pain in the right middle finger MCP joint. Right hand pain 5/10 with ROM and gross gripping. Reported Pain Level Pain Score 5: Self Report Assessment OT Clinical Summary Patient referred to OT with right hand pain and weakness and left hand trigger finger. She is in town for the s and wanted to have 1 treatment session. Utilized paraffin, manual therapy, and therapeutic exercise for pain relief. D/C OT. Plan of Care OT Services Indicated No
== END 2024-03-06 10:13 | disposition home or self-care (01) ==
LOC: ANHGOSHOT 15:24
DX: M65.342 Trigger finger, left ring finger (principal); R53.1 Weakness
CPT/HCPCS: 97018; 97140

== ENCOUNTER 2024-10-07 11:15 | Outpatient (RCR) | payer MEDICARE, OTHER, SELFPAY ==
--- NOTE | 2024-09-20 12:55 | OTOPEVAL1 ---
Assessment and note entered by CAROLYN Majano/Judi, CHT OT Evaluation Information 09/20/24 Assessment Status Evaluation Diagnosis Bone spur of IP joint of finger, bilateral hand pain Subjective Information Patient reports right middle finger MCP bone spur that is painful with hand use, becomes sharp with hand use, visually swollen, but intact ROM. She also notes bilateral trigger fingers in her ring fingers for which she plans to get injections for. She also reports right ulnar sided wrist pain. 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 Reported Pain Level Additional Pain Score Comments Patient reports the right middle finger MCP joint can get up to 8/10 with hand use. Right wrist is painful with active ROM and with palpation to the ECU tendon. Assessment OT Clinical Summary Patient referred to OT with bilateral hand pain. There are several areas of concern, including the right wrist ECU tendon, right MCP joint bone spur, right ring finger trigger finger, and left ring finger trigger finger. She demonstrates a functional decline with ADLs due to bilateral hand pain, stiffness, and weakness. Skilled OT indicated to maximize functional use of bilateral hands via modalities, therapeutic exercise/ activities, manual therapy, splinting PRN, and education on HEP progression. Plan of Care Interventions Therapeutic Exercise,Manual Therapy,Therapeutic Activities,Hot Pack/Cold Pack,Check Out for Orthotic/Prosthetic,Ultrasound,Paraffin OT Services Indicated Yes Treatment Frequency and 2x/week for 8 visits Duration These treatments will address the objective and functional deficits as defined above. The patient will be advanced safely and appropriately in order for the patient to progress towards his/her prior level of function. Additional exercises will be introduced and as well as a comprehensive home exercise program upon discharge, if needed, ?to ensure carryover of functional gains achieved in the clinic. This treatment plan has been reviewed and agreement upon by the patient.
--- NOTE | 2024-09-20 12:56 | OPREHPOC ---
Outpatient Therapy Plan of Care This is a Multidisciplinary Plan of Care that may contain components documented by all disciplines (PT, OT, and ST.) OT Problem 1 OT Problem #1 Knowledge Deficit OT Goal 1 Goal / Goal Update 1. Patient to be independent with instructed materials. Target Visit 8 OT Problem 2 OT Problem #2 Pain OT Goal 1 Goal / Goal Update 1. Patient to report reduced (R) wrist pain to 0/ 10 with ADLs. 2. Patient to report reduced (R) middle finger MCP pain to 2/10 or less with playing the piano. 3. Patient to report reduced (L) hand pain to 0/10 with ADLs. Target Visit 8 OT Problem 3 OT Problem #3 Impaired Strength OT Goal 1 Goal / Goal Update 1. Patient to improve functional strength of bilateral wrists as demonstrated by being able to progress to 3 lb. free weights for wrist strengthening in all planes. 2. Patient to improve (R) statistician mathematical strength to 48 lbs. for improved functional statistician mathematical with ADLs. 3. Patient to improve (L) statistician mathematical strength to 63 lbs. for improved functional statistician mathematical with ADLs. Target Visit 8
--- NOTE | 2024-10-09 10:44 | PCOTNOTE ---
Patient called & cancelled scheduled appointment this date due to being in the hospital.
--- NOTE | 2024-10-15 11:38 | PCOTNOTE ---
Late note for 10/14/24: Pt did not show for re-eval this date. Attempted to call patient to reschedule and she did not answer.
--- NOTE | 2024-12-23 10:33 | OTOPDC ---
Assessment and note entered by Zia Schaefer, OTR/L, CHT OT D/C NOTIFICAITON 12/23/24 Patient attended her initial evaluation on 09/20/24 and attended 5 follow up sessions. She cancelled her appointment on 10/09/24 and has not returned. We have been unable to get a hold of her. Discharging her from services at this time. Thank you.
== END 2024-12-19 23:59 | disposition home or self-care (01) ==
LOC: ANHOT 11:15
PROVIDERS: Visit Provider Plastic Surgery
DX: M77.8 Other enthesopathies, not elsewhere classified (principal)
CPT/HCPCS: 97018; 97035; 97110; 97140; 97165

== ENCOUNTER 2024-12-12 07:51 | Outpatient (CLI) | payer MEDICARE, OTHER, SELFPAY ==
--- OUTSIDE RECORDS SUMMARY | 2023-08-29 06:30 | XMS_ITS ---
Author Organization [facility] Address [facility] [address] [place] [address] Care Team Providers Care Motor Equipment Sergeant Name Role Phone Khang Bowden MD Primary Care Provider Itzel Lowe Unavailable [phone] Pretty Christianson MD Unavailable Unavailable Allergies Allergen (clinical drug ingredient) Drug/Non Drug Allergy documented on EMR Reaction Allergy Type Onset Date Status Biaxin rash Drug Allergy Active celecoxib CeleBREX vomiting Drug Allergy Active Codituss DM vomiting Drug Allergy Activ e codeine Codeine hives Drug Allergy Active Iodine hives Drug Allergy Active Latex Latex Unknown Allergy Active Penicillin hives Drug Allergy Active prochlorperazine Prochlorperazine Unknown Drug Allergy Active Shellfish (FN) Shellfish-derived Products hives Drug Allergy Active Substance with sulfonamide structure and antibacterial mechanism of action (substance) Sulfa Antibiotics hives Drug Allergy Active Product containing tetracycline structure (product) Tetracyclines & Related hives Drug Allergy Active REASON FOR VISIT pm ck- Dr Social History Tobacco Use: Social History Observation Description Date Details (start date - stop date) Never Smoker NA - NA Tobacco Use/Smoking Question Answer Notes Are you a nonsmoker Alcohol Screen (Audit-C) Question Answer Notes Did you have a drink containing alcohol in the p ast year? No Points 0 Interpretation Negative Encounters Encounter Location Date Provider Diagnosis [facility] [address] [place] [address] 08/29/2023 Itzel DACOSTA Atrioventricular blo ck, complete I44.2 and Left bundle-branch block, unspecified I44.7 Assessments Encounter Date Diagnosis (ICD Code) Assessment Notes Treatment Notes Treatment Clinical Notes Section Notes 08/29/2023 Atrioventricular block, complete (ICD-10 - I44.2) 1. Ordered pacemaker check reviewed with normal function noted and adequate battery life. 2. Pacemaker site is dry without redness or pocket erosion 08/29/2023 Left bundle-branch block, unspecified (ICD-10 - I44.7) Plan Of Treatment Treatment Notes Assessment Notes Atrioventricular block, complete 1. Ordered pacemaker check reviewed with normal function noted and adequate battery life. 2. Pacemaker site is dry without redness or pocket erosion Next Appt Details Provider Name:Itzel Norman, 02/11/2025 12:00:00 PM, [address], [address], [address], Progress Notes * Oleg YAÑEZB:1940 (84 yo F)Acc No.[id number]:08/29/2023 Progress Note Patient: Marisol MCGRATH Provider: Danielle DACOSTA MD :1940 A ge:83 Y S ex:Female Date:08/29/2023 Address:[address] [place], [place] [id number] Pcp:Khang Bowden MD Subjective: * Chief Complaints: * 1 . pm ck- Dr. 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 She is here today for routine device check. Patient has no cardiac complaints at this time. Denies any chest pain, chest pressure, shortness of breath. No lightheadedness or dizziness. No fatigue or syncope. T ransthoracic Echocardiography (TTE): Ejection fraction r esults(%): 6 0 ([facility]) D ate: 0 04/20/2023 * Medical History: L BBB, Complete heart block, Hypertension, Syncope, GERD, Diverticulitis, Bladder cancer, Palpitations, Branch retinal vein occlusion of left eye. * Surgical History: D ual chamber pacemaker ([employer], Dr Zapien, [facility]) 01/16/2022, Left hip replacement ([facility] Reynoso[facility]) 12/22/2020, Partial knee replacement , Mortons neuroma . * Hospitalization/Major Diagno stic Procedure: P alpitation ([facility]) 04/27/2021, Hip replacement ([facility]) 12/22/2020. * Family History: Father ( age; 89)- Cancer of mandable Mother ( age; 87) Heart. * Social History: T obacco Use: T obacco Use/Smoking A re you a n onsmoker D rugs/Alcohol: A lcohol Screen (Audit-C) D id you have a drink containing alcohol in the past year? N o P oints 0 I nterpretation N egative * Allergies: P enicillin: hives, Shellfish-derived Products: hives, Iodine: hives, Biaxin: rash, CeleBREX: vomiting, Codituss DM: vomiting, Latex, Prochlorperazine, Sulfa Antibiotics: hives, Tetracyclines & Related: hives, Codeine: hives. Objective: * Vitals: Assessment: * Assessment: 1. A trioventricular block, complete - I44.2 (Primary) 2 . L eft bundle-branch block, unspecified - I44.7 Plan: * Treatment: * * Electronic signature of Itzel DACOSTA MD on 12/12/2024 at 09:06 AM EDT Sign off status: Pending * Provider: Danielle DACOSTA MD Date: 0 08/29/2023 Generated for Franky paulson/Zarina/eTjessicaitting on: 0 12/12/2024 09:06 AM EDT History and Physical Notes * HPI (History of Present Illness) Category Sub-Category Detail Notes Category Not es Transthoracic Echocardiography (TTE) Ejection fraction results(%):: 60 ([facility]) Date:: 04/20/2023 EP The patient is an 82-year-old white female with a history of syncope secondary to 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 She is here today for routine device check. Patient has no cardiac complaints at this time. Denies any chest pain, chest pressure, shortness of breath. No lightheadedness or dizziness. No fatigue or syncope
--- OUTSIDE RECORDS SUMMARY | 2024-05-09 07:40 | XMS_ITS ---
Author Organization [facility] Address [facility] [address] [address] Care Team Providers Care Floating Operator Name Role Phone Khang Bowden MD Primary Care Provider Itzel Lowe Unavailable [phone] Pretty Christianson MD Unavailable Unavailable Allergies Allergen [...] hives Drug Allergy Active REASON FOR VISIT PM CK Medications Medication SIG (Take, Route, Frequency, Duration) Notes Start Date End Date Status Gemtesa 75 MG 1 tablet Orally Once a day Active Irbesartan 75 MG 2 tablets Orally Onc e a day Active Colchicine 0.6 MG 1 tablet Orally Active amLODIPine Besylate 10 MG 1 tablet Orally Once a day Active Social History Tobacco Use: Social History Observation Description Date Details (start date - stop date) Never Smoker NA - NA Tobacco Use/Smoking Question Answer Notes Are you a nonsmoker Alcohol Screen (Audit-C) Question Answer Notes Did you have a drink containing alcohol in the p ast year? No Points 0 Interpretation Negative Encounters Encounter Location Date Provider Diagnosis [facility] [address] [place] [address] 05/09/2024 Itzel DACOSTA Plan Of Treatment Next Appt Details Provider Name:Itzel Norman, 02/11/2025 12:00:00 PM, [address], [address], [place], [address], Progress Notes * Oleg YAÑEZB:1940 (84 yo F)Acc No.[id number]:05/09/2024 Progress Note Patient: Marisol MCGRATH Provider: Danielle DACOSTA MD :1940 A ge:83 Y S ex:Female Date:05/09/2024 Address:[address] [place], [place] [id number] Pcp:Khang Bowden MD Subjective: * Chief Complaints: * 1 . PM CK. * HPI: T ransthoracic Echocardiography (TTE): Ejection fraction r esults(%): 6 0 ([facility]) D ate: 0 04/20/2023 * ROS: A ll Other Systems: Review of Systems (ROS) 1 2 system review is negative except as stated above in the HPI and examination. * Medical History: L BBB, Complete heart block, Hypertension, Syncope, GERD, Diverticulitis, Bladder cancer, Palpitations, Branch retinal vein occlusion of left eye. * Surgical History: D ual chamber pacemaker ([employer], Dr Zapien, [facility]) 01/16/2022, Left hip replacement (Dr Reynoso, [facility]) 12/22/2020, Partial knee replacement , Mortons neuroma . * Hospitalization/Major Diagno stic Procedure: P alpitation ([facility]) 04/27/2021, Hip replacement ([facility]) 12/22/2020. * Family History: Father ( age; 89)- Cancer of mandable Mother ( age; 87) Heart. * Social History: T obacco Use: T obacco Use/Smoking A re you a n onsmoker D rugs/Alcohol: A lcohol Screen (Audit-C) D id you have a drink containing alcohol in the past year? N o P oints 0 I nterpretation N egative * Medications: T aking Gemtesa 75 MG Tablet 1 tablet Orally Once a day , Taking Irbesartan 75 MG Tablet 2 tablets Orally Once a day , Taking Colchicine 0.6 MG Tablet 1 tablet Orally , Taking amLODIPine Besylate 10 MG Tablet 1 tablet Orally Once a day * Allergies: P enicillin: hives, Shellfish-derived Products: hives, Iodine: hives, Biaxin: rash, CeleBREX: vomiting, Codituss DM: vomiting, Latex, Prochlorperazine, Sulfa Antibiotics: hives, Tetracyclines & Related: hives, Codeine: hives. Objective: * Vitals: H t-cm: 162.56, Wt-k.08. * Examination: G eneral Examination: GENERAL APPEARANCE: i n no acute distress, well developed, well nourished. HEAD: n ormocephalic, atraumatic. EYES: p upils equal, round, reactive to light and accommodation. EARS: n ormal. ORAL CAVITY: m ucosa moist. THROAT: c lear. NECK/THYROID: n jem supple, full range of motion, no cervical lymphadenopathy. SKIN: n o suspicious lesions, warm and dry. HEART: n o murmurs, regular rate and rhythm, S1, S2 normal.? LUNGS: c lear to auscultation bilaterally. ABDOMEN: n ormal, bowel sounds present, soft, nontender, nondistended. EXTREMITIES: n o clubbing, cyanosis, or edema. NEUROLOGIC: n onfocal, motor strength normal upper and lower extremities, sensory exam intact. D evice check: DEVICE TYPE: p acemaker DDD (CHB, V-paced @30). 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 BATTERY VOLTAGE: b eginning of life: 8 years 10 months.? IMPEDANCE: a trial lead impedance 429, v entricular lead impedance 565. PERCENT PACED: a trial pacing 1%, ventricular pacing 99%.? MODE SWITCHING: n one. Assessment: Plan: * Treatment: * * Electronic signature of Itzel DACOSTA MD on 12/12/2024 at 09:06 AM EDT Sign off status: Pending * Provider: Danielle DACOSTA MD Date: 0 05/09/2024 Generated for [employer] ng/Faxing/eTransmitting on: 0 12/12/2024 09:06 AM EDT History and Physical Notes * HPI (History of Present Illness) Category Sub-Category Detail Notes Category Not es Transthoracic Echocardiography (TTE) Ejection fraction results(%):: 60 ([facility]) Date:: 04/20/2023 Examination Category Sub-Category Detail Notes Category Not es Device check DEVICE TYPE: pacemaker DDD (CHB, V-paced @30) DIRECTOR OF PERSONNEL: [email or web address] BATTERY VOLTAGE: beginning of life: 8 years 10 months IMPEDANCE: atrial lead impedanc e 429, ventricular lead impedance 565 PERCENT PACED: atrial pacing 1%, ve ntricular pacing 99% MODE SWITCHING: none General Examination GENERAL APPEARANCE: in no ac huslia distress, well developed, well nourished HEAD: normocephalic, atrau matic EYES: pupils equal, round, reactive to light and accommodation EARS: normal THROAT: clear NECK/THYROID: neck supple, full ra nge of motion, no cervical lymphadenopathy HEART: no murmurs, regular rate and rhythm, S1, S2 normal LUNGS: clear to auscultatio n bilaterally ABDOMEN: normal, bowel sounds present, soft, nontender, nondistended NEUROLOGIC: nonfocal, motor stre ngth normal upper and lower extremities, sensory exam intact SKIN: no suspicious lesion s, warm and dry EXTREMITIES: no clubbing, cyanosi s, or edema ORAL CAVITY: mucosa moist
--- OUTSIDE RECORDS SUMMARY | 2024-09-03 07:30 | XMS_ITS ---
Author Organization [facility] Address [address] [facility] [address] [place] [address] Care Team Providers Care Stick Inserter Name Role Phone Kal RICK, Khang Primary Care Provider Itzel Lowe Unavailable [phone] Sammy RICK, Pretty Unavailable Unavailable REASON FOR VISIT Renal artery US Encounters Encounter Location Date Provider Diagnosis [facility] [address] [place] [address] 09/03/2024 Itzel DACOSTA Plan Of Treatment Next Appt Details Provider Name:Itzel Norman, 02/11/2025 12:00:00 PM, [address], [address], [place], [address], Progress Notes * Petra TYaDOB:1940 (84 yo F)Acc No.[id number]:09/03/2024 Patient: Marisol MCGRATH Provider: Danielle DACOSTA MD :1940 A ge:84 Y S ex:Female Date:09/03/2024 Address:[address] [place], [place] Pcp:Khang Bowden MD Subjective: * Chief Complaints: * 1 . Renal artery US. * Medical History: Objective: * Vitals: Assessment: Plan: * Treatment: * * Electronic signature of Itzel DACOSTA MD on 12/12/2024 at 09:05 AM EDT Sign off status: Pending * Provider: Danielle DACOSTA MD Date: 0 09/03/2024 Generated for Franky paulson/Zarina/Villa on: 0 12/12/2024 09:05 AM EDT
--- NOTE | ~2024-12-12 | MM_ITS ---
EXAMINATION: MM screening [facility] BI w frantz HISTORY: Screening TECHNIQUE: Craniocaudal and mediolateral oblique 3-D tomosynthesis images were obtained and synthetic 2-D images were generated. CAD analysis was submitted and interpreted. COMPARISON: Mammograms from 09/24/2019 and 09/18/2023 BREAST PARENCHYMAL COMPOSITION: Not Dense: The breasts are almost entirely fatty. FINDINGS: There is no evidence of suspicious mass, calcification, or architectural distortion to suggest malignancy. There has been no suspicious interval change. IMPRESSION: 1. No mammographic evidence of malignancy. Recommend routine screening mammography in one year. BI-RADS Category 2: Benign finding(s) 12 Reviewed, dictated and finalized at location Q. IMPRESSION: 1. No mammographic evidence of malignancy. Recommend routine screening mammogra phy in one year. BI-RADS Category 2: Benign finding(s) 12
--- OUTSIDE RECORDS SUMMARY | 2024-12-12 08:06 | XMS_ITS | Encounter Summary ---
Author Organization [facility] Address [address] [facility] [address] [place] [address] Phone Care Team Providers Care Auto Winder Name Role Phone Marion Kamara MD Primary Care Provider + Encounter Details Date Type Department Care Team (Late st Contact Info) Description 05/30/2021 Orders Only [facility] [address] [facility] [address] [place] [address] [place] [address] Marion Kamara MD [address] [facility] [address] [place], [place] [phone] Social History Tobacco Use Types Packs/Day Years Used Date Smoking Tobacco: Former Comments Unknown Sex and Gender Information Value Date Recorded Sex Assigned at Not on file Legal Sex Female 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 Gender Identity Female 09/30/2023 6:44 PM CDT Sexual Orientation Straight 09/30/2023 6: 44 PM CDT documented as of this encounter Plan of Treatment Scheduled Procedures Name Priority Associated Diagnoses Date/Ti me COLONOSCOPY Colon cancer screening COLONOSCOPY Family history of colon cancer in mother COLONOSCOPY Family history of colon cancer in mother documented as of this encounter Procedures Procedure Name Priority Date/Time Associated Diagnosis Comments CARDIOLOGY DOCUMENT SCAN 05/30/2021 documented in this encounter Results * CARDIOLOGY DOCUMENT SCAN (05/30/2021) Anatomical Region Laterality Modality Other us Marion Kamara MD CV CARDIAC SERVICES PROC EDURES Edited Result - Final documented in this encounter Visit Diagnoses Not on filedocumented in this encounter Care Teams Auto Winder Relationship Specialty Start Date End Date Marion Kamara MD [address] [address] PCP - General Internal Medicine 02/12/19 documented as of this encounter
--- OUTSIDE RECORDS SUMMARY | 2024-12-12 08:06 | XMS_ITS | Encounter Summary ---
Author Organization [facility] Address [address] [facility] [address] [place] [address] Phone Care Team Providers Care Customer Relations Coordinator Name Role Phone Marion Kamara MD Primary Care Provider + Encounter Details Date Type Department Care Team (Late st Contact Info) Description 03/17/2021 Orders Only [facility] [address] [facility] 5[address] [place] [address] [place] [address] Marion Kamara MD [address] [facility] [address] [place], [place] [phone] Social History Tobacco Use Types Packs/Day Years Used Date Smoking Tobacco: Former Comments Unknown Sex and Gender Information Value Date Recorded Sex Assigned at Not on file 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
--- OUTSIDE RECORDS SUMMARY | 2024-12-12 08:06 | XMS_ITS | Clinical Summary ---
Author Organization [facility] Address [address] [place] [address] Care Team Providers Care Casino Operations Supervisor Name Role Phone Marion Kamara MD Primary Care Provider + Allergies Active Allergy Reactions Criticality Noted Date Comments Celecoxib Nausea only,Unknown,Muscl e pain Medium 03/06/2012 Clindamycin Eye irritation Low 11/24/2020 Bad taste in mouth, eye swelling, tachycardia Other reaction(s): Eye irritation Bad taste in mouth, eye swelling, tachycardia Codeine Dizziness,Nausea & Vomiting,Nausea only,Nausea And Vomiting,Other (See comments) Medium 10/01/2019 Avoid codeine Avoid codeine Avoid codeine Avoid codeine Avoid codeine Avoid codeine Avoid codeine Avoid codeine Avoid codeine Avoid codeine Fish Containing Products Hives High 10/28/2019 Shellfish Other reaction(s): Rash/Hives/Urticaria Shellfish Shellfish Horse Blood Extract Anaphylaxis High 09/04/2018 Received horse serum anti-toxoid Horse/Equine Containing Products Unknown,Anaphylaxi s High 09/04/2018 Other reaction(s): Anaphylactoid Reactions, Unknown Received horse serum anti-toxoid Received horse serum anti-toxoid Iodine Other (See comments),Unknown High 03/06/2012 Pt has shellfish allergy and reported she was allergic to iodine but denies h/o reaction to iodinated contrast. Other reaction(s): Other (See comments) Pt has shellfish allergy and reported she was allergic to iodine but denies h/o reaction to iodinated contrast. Pt has shellfish allergy and reported she was allergic to iodine but denies h/o reaction to iodinated contrast. Latex Unknown High 10/30/2017 Pt unsure. Other reaction(s): Other Pt unsure. Pt unsure. Penicillin G Penicillins Hives High 03/06/2012 Reaction: Hives, Reaction: HIVES, NATURAL PENICILLINS: - Converted from Centricity Reaction: Hives, Reaction: HIVES, NATURAL PENICILLINS: - Converted from Centricity Prochlorperazine Other (See comments) High 09/04/2018 Reaction: OTHER, Reaction: Other Reaction: OTHER, Reaction: Other Pseudoephedrine-Codeine- Gg Other (See comments) Low 07/18/2022 Other reaction(s): Vomiting Shellfish Containing Products Hives High 11/05/2019 Sulfa (Sulfonamide Antibiotics) Hives,Unknown High 03/31/2014 Reaction: HIVES, , , Reaction: Hives, SULFONAMIDES: - Converted from Centricity Reaction: HIVES, , , Reaction: Hives, SULFONAMIDES: - Converted from Centricity Sulfanilamide Unknown 03/06/2012 Tetanus Vaccines And Toxoid Other (See comments) High 10/28/2019 Pt unsure, only aware of reaction to horse serum-derived toxoid. Tetracycline Hives,Unknown High 09/11/2024 Reaction: HIVES, , , Reaction: Hives, Medications ascorbic acid (VITAMIN C) 500 mg tablet,chewable as directed 5 Active tretinoin (RETIN-A) 0.05 % cream Active aspirin 81 mg enteric coated tablet Take 1 tablet (81 mg total) by mouth daily Active coenzyme Q10 100 mg capsule Take 1 capsule (100 mg total) by mouth daily Active TURMERIC ORAL Take by mouth [employer] before breakfast Active flaxseed oiL oil [employer] before breakfast Active cholecalciferol (VITAMIN D-3) 1,000 unit capsule Take 1 capsule (1,000 Units total) by mouth daily Active vibegron (Gemtesa) 75 mg tablet Take 75 mg by mouth daily before dinner Active clindamycin (CLEOCIN) 150 mg capsule Take 4 tablets one hour before dental work. 16 capsule 1 3 Active colchicine (COLCRYS) 0.6 mg tablet TAKE 1 TABLET(0.6 MG) BY MOUTH DAILY 90 tablet 3 4 Active irbesartan (AVAPRO) 150 mg tablet TAKE 1 TABLET(150 MG) BY MOUTH DAILY 90 tablet 3 5 Active amLODIPine (NORVASC) 5 mg tablet Take 1 tablet (5 mg total) by mouth 2 (two) times a day 5 10/15/19 26 Active atorvastatin (LIPITOR) 40 mg tablet Take 1 tablet (40 mg total) by mouth nightly 30 tablet 11 5 10/15/19 26 Active LORazepam (ATIVAN) 0.5 mg tablet Take 1 tablet (0.5 mg total) by mouth 2 (two) times a day as needed for anxiety for up to 7 days 14 tablet 1 5 Active cefuroxime (CEFTIN) 250 mg tablet Take 1 tablet (250 mg total) by mouth 2 (two) times a day 6 tablet 5 Active tavaborole 5 % solution with applicator APPLY DAILY TO FUNGAL NAILS FOR 10 MONTHS Active Active Problems Problem Noted Date Diagnosed Date Urinary frequency 10/13/2024 Assessment & Plan (10/14/2024 1:48 PM CDT): Pharmacist feels that her home Gemtesa would be ok as this is less likely to cause HTN at the doses she's using it at. CTM. Assessment & Plan (10/13/2024 12:12 PM CDT): Pharmacist feels that her home Gemtesa would be ok as this is less likely to cause HTN at the doses she's using it at. Gait disturbance 10/08/2024 Assessment & Plan (10/14/2024 1:48 PM CDT): Presented with acute change in gait and balance, leaning towards her left side when she tried to walk. BP 197/89. At baseline without difficulty in ambulation DDx: TIA, acute ischemic stroke, presyncope though denies associated symptoms, age-related decrease in muscle strength/frailty though less likely since patient engages in resistance and cardio exercises at least per her report. No neuropathy. B12 wnl. Neuro w/ no concern for stroke. CT head negative for stroke or any acute abnormality. CTA head and neck without stenosis. - bMRI- negative for CVA. May have been TIA. - TTE - follow up with [facility] center (cards states that the RV indentation is not clinically significant). - PT/OT-- pt declined as she feels like she has sufficient support at home. Family will assist her after procedure today. Assessment & Plan (10/13/2024 12:12 PM CDT): Presented with acute change in gait and balance, leaning towards her left side when she tried to walk. BP 197/89. At baseline without difficulty in ambulation DDx: TIA, acute ischemic stroke, presyncope though denies associated symptoms, age-related decrease in muscle strength/frailty though less likely since patient engages in resistance and cardio exercises at least per her report. No neuropathy. B12 wnl. Neuro w/ no concern for stroke. CT head negative for stroke or any acute abnormality. CTA head and neck without stenosis. - bMRI ordered; EP saw for cardiac device. MRb tomorrow at 9m. - TTE - follow up with [facility] center and cards to let me know what to do about RV changes. - PT/OT-- pt declined as she feels like she has sufficient support at home. Assessment & Plan (10/12/2024 10:59 AM CDT): Presented with acute change in gait and balance, leaning towards her left side when she tried to walk. BP 197/89. At baseline without difficulty in ambulation DDx: TIA, acute ischemic stroke, presyncope though denies associated symptoms, age-related decrease in muscle strength/frailty though less likely since patient engages in resistance and cardio exercises at least per her report. No neuropathy. B12 wnl. Neuro w/ no concern for stroke. CT head negative for stroke or any acute abnormality. CTA head and neck without stenosis. - bMRI ordered; EP saw for cardiac device. However, cannot do MRI until Monday. - TTE if ok, will discuss with MR about timing of imaging here and as outpatient. - PT/OT-- pt declined as she feels like she has sufficient support at home. Assessment & Plan (10/11/2024 3:21 PM CDT): Presented with acute change in gait and balance, leaning towards her left side when she tried to walk. BP 197/89. At baseline without difficulty in ambulation DDx: TIA, acute ischemic stroke, presyncope though denies associated symptoms, age-related decrease in muscle strength/frailty though less likely since patient engages in resistance and cardio exercises at least per her report. No neuropathy. B12 wnl. Neuro w/ no concern for stroke. CT head negative for stroke or any acute abnormality. CTA head and neck without stenosis. - bMRI ordered; EP saw for cardiac device. However, cannot do MRI until Monday. - TTE ordered - PT/OT-- deferred. Patient stated she would like to discharge home, does not feel like she need any more assistance at home Assessment & Plan (10/10/2024 3:10 PM CDT): Presented with acute change in gait and balance, leaning towards her left side when she tried to walk. BP 197/89. At baseline without difficulty in ambulation DDx: TIA, acute ischemic stroke, presyncope though denies associated symptoms, age-related decrease in muscle strength/frailty though less likely since patient engages in resistance and cardio exercises at least per her report. No neuropathy. B12 level more than adequate Per Neuro evaluation in the ED, no concern for stroke. CT head negative for stroke or any acute abnormality. - bMRI ordered; EP saw for cardiac device. However, cannot do MRI until Monday. - consulted neuro for further assistance; rec repeat hCT noncon - Telemetry monitoring for 24 hrs to r/o arrhythmia - PT/OT-- deferred. Patient stated she would like to discharge home, does not feel like she need any more assistance at home Assessment & Plan (10/09/2024 2:07 PM CDT): Presented with acute change in gait and balance, leaning towards her left side when she tried to walk. BP 197/89. At baseline without difficulty in ambulation DDx: TIA, acute ischemic stroke, presyncope though denies associated symptoms, age-related decrease in muscle strength/frailty though less likely since patient engages in resistance and cardio exercises at least per her report. No neuropathy. B12 level more than adequate Per Neuro evaluation in the ED, no concern for stroke. CT head negative for stroke or any acute abnormality. - F/u brain MRI. Will need EP consult re pacemaker compatibility - Telemetry monitoring for 24 hrs to r/o arrhythmia - PT/OT-- deferred. Patient stated she would like to discharge home, does not feel like she need any more assistance at home Assessment & Plan (10/08/2024 11:35 PM CDT): Presented with acute change in gait and balance, leaning towards her left side when she tried to walk. BP 197/89. At baseline without difficulty in ambulation DDx: TIA, acute ischemic stroke, presyncope though denies associated symptoms, age-related decrease in muscle strength/frailty though less likely since patient engages in resistance and cardio exercises at least per her report. No neuropathy. B12 level more than adequate Per Neuro evaluation in the ED, no concern for stroke. CT head negative for stroke or any acute abnormality. - F/u brain MRI. Will need EP consult re pacemaker compatibility - Telemetry monitoring for 24 hrs to r/o arrhythmia - PT/OT eval Hypertensive emergency 10/08/2024 Assessment & Plan (10/14/2024 1:48 PM CDT): BP 197/89 with associated symptom as above Home meds: amlodipine 5mg qAm and qPM, irbesartan 150mg qPM with moderately controlled BP at home per patient's report Most recent BP 138/67. Here BPs elevated with some readings in the 170s/90s. Has history of bladder cancer and has issues with bladder control, as such, not interested in taking diuretics. - Continue amlodipine 5 BID and irbesartan 150mg - Cont doxazosin 2 mg QHS (she'll watch out for LH). Will need it rechecked in about a week to make sure gemtesa doesn't increase it. Assessment & Plan (10/13/2024 12:12 PM CDT): BP 197/89 with associated symptom as above Home meds: amlodipine 5mg qAm and qPM, irbesartan 150mg qPM with moderately controlled BP at home per patient's report Most recent BP 138/67. Here BPs elevated with some readings in the 170s/90s. Has history of bladder cancer and has issues with bladder control, as such, not interested in taking diuretics. - Continue amlodipine 5 BID and irbesartan 150mg - Decreased doxazosin to 2 mg po daily. Assessment & Plan (10/12/2024 10:59 AM CDT): BP 197/89 with associated symptom as above Home meds: amlodipine 5mg qAm and qPM, irbesartan 150mg qPM with moderately controlled BP at home per patient's report Most recent BP 138/67. Here BPs elevated with some readings in the 170s/90s. Has history of bladder cancer and has issues with bladder control, as such, not interested in taking diuretics. - Continue amlodipine 5 BID and irbesartan 150mg - Doxazosin 4mg started and doing well. Assessment & Plan (10/11/2024 3:21 PM CDT): BP 197/89 with associated symptom as above Home meds: amlodipine 5mg qAm and qPM, irbesartan 150mg qPM with moderately controlled BP at home per patient's report Most recent BP 138/67. Here BPs elevated with some readings in the 170s/90s. Has history of bladder cancer and has issues with bladder control, as such, not interested in taking diuretics. - Continue amlodipine 5 BID and irbesartan 150mg - Start Doxazosin 4 mg nightly for better control Assessment & Plan (10/10/2024 3:10 PM CDT): BP 197/89 with associated symptom as above Home meds: amlodipine 5mg qAm and qPM, irbesartan 150mg qPM with moderately controlled BP at home per patient's report Most recent BP 138/67 - Continue home meds as above. Patient wondering why she takes amlodipine BID, planning to discuss with outpatient provider as she said she previously took daily and prefers that Assessment & Plan (10/09/2024 2:08 PM CDT): BP 197/89 with associated symptom as above Home meds: amlodipine 5mg qAm and qPM, irbesartan 150mg qPM with moderately controlled BP at home per patient's report Most recent BP 138/67 - Continue home meds as above. Patient wondering why she takes amlodipine BID, planning to discuss with outpatient provider as she said she previously took daily and prefers that Assessment & Plan (10/08/2024 9:45 PM CDT): BP 197/89 with associated symptom as above Home meds: amlodipine 5mg qAm and qPM, irbesartan 150mg qPM with moderately controlled BP at home per patient's report Most recent BP 138/67 - Continue home meds as above Hypercalcemia 10/08/2024 Assessment & Plan (10/14/2024 1:48 PM CDT): Mild hypercalcemia 10.7, normal albumin. Has not had any food or drink since [employer]. Likely from dehydration - Resolved. Assessment & Plan (10/13/2024 12:12 PM CDT): Mild hypercalcemia 10.7, normal albumin. Has not had any food or drink since [employer]. Likely from dehydration - Resolved. Assessment & Plan (10/12/2024 10:59 AM CDT): Mild hypercalcemia 10.7, normal albumin. Has not had any food or drink since [employer]. Likely from dehydration - Resolved. Assessment & Plan (10/11/2024 9:29 AM CDT): Mild hypercalcemia 10.7, normal albumin. Has not had any food or drink since [employer]. Likely from dehydration - NSS 100cc/hr. Monitor urine output - Encourage oral intake - Recheck BMP-- resolved Assessment & Plan (10/10/2024 3:10 PM CDT): Mild hypercalcemia 10.7, normal albumin. Has not had any food or drink since [employer]. Likely from dehydration - NSS 100cc/hr. Monitor urine output - Encourage oral intake - Recheck BMP-- resolved Assessment & Plan (10/09/2024 2:07 PM CDT): Mild hypercalcemia 10.7, normal albumin. Has not had any food or drink since [employer]. Likely from dehydration - NSS 100cc/hr. Monitor urine output - Encourage oral intake - Recheck BMP-- resolved Assessment & Plan (10/08/2024 9:45 PM CDT): Mild hypercalcemia 10.7, normal albumin. Has not had any food or drink since [employer]. Likely from dehydration - NSS 100cc/hr. Monitor urine output - Encourage oral intake - Recheck BMP Atherosclerosis of aorta 05/03/2022 Lesion of urinary bladder 05/03/2022 Malignant neoplasm of urinary bladder 05/03/2022 Overactive bladder 05/03/2022 Seasonal allergic rhinitis 05/03/2022 Arthritis of knee 05/03/2022 Mitral valve prolapse 05/03/2022 Complete heart block 03/01/2022 Assessment & Plan (10/14/2024 1:48 PM CDT): History of syncope and fall resulting in wrist fracture 01/2022; found to have complete heart block, s/p dual chamber (Biotronik) pacemaker placement. Follows with Cardiology. Last device check 10/09/2024: no anomalies Assessment & Plan (10/13/2024 12:12 PM CDT): History of syncope and fall resulting in wrist fracture 01/2022; found to have complete heart block, s/p dual chamber (Biotronik) pacemaker placement. Follows with Cardiology. Last device check 10/09/2024: no anomalies Assessment & Plan (10/12/2024 10:59 AM CDT): History of syncope and fall resulting in wrist fracture 01/2022; found to have complete heart block, s/p dual chamber (Biotronik) pacemaker placement. Follows with Cardiology. Last device check 10/09/2024: no anomalies Assessment & Plan (10/11/2024 3:21 PM CDT): History of syncope and fall resulting in wrist fracture 01/2022; found to have complete heart block, s/p dual chamber (Biotronik) pacemaker placement. Follows with Cardiology. Last device check 10/09/2024: no anomalies Assessment & Plan (10/10/2024 3:10 PM CDT): History of syncope and fall resulting in wrist fracture 01/2022; found to have complete heart block, s/p dual chamber (Biotronik) pacemaker placement. Follows with Cardiology. Last device check 06/2024: no anomalies Assessment & Plan (10/09/2024 2:07 PM CDT): History of syncope and fall resulting in wrist fracture 01/2022; found to have complete heart block, s/p dual chamber (Biotronik) pacemaker placement. Follows with Cardiology. Last device check 06/2024: no anomalies Assessment & Plan (10/08/2024 9:45 PM CDT): History of syncope and fall resulting in wrist fracture 01/2022; found to have complete heart block, s/p dual chamber (Biotronik) pacemaker placement. Follows with Cardiology. Last device check 06/2024: no anomalies Cardiac pacemaker in situ 01/17/2022 Overview (10/10/2024): Biotronik Edora Dual Pacemaker. Dx; CHB. DOI 01/17/2022-Jerod. Biotronik remote monitoring. Pacemaker & leads are MRI conditional for 1.5 or 3.0 T. Confirmed 10/10/24. 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) w/o abn findings 12/27/2018 Encounter for gynecological examination with abnormal finding 12/27/2018 Encounter for routine gynecological examination 12/27/2018 Screening for osteoporosis 12/27/2018 Gross hematuria 12/27/2018 Hx of bladder cancer 12/27/2018 Menopausal symptom 12/27/2018 Post-menopause bleeding 12/27/2018 Benign neoplasm of colon 09/04/2018 Cellulitis 09/04/2018 Hymenoptera sting 09/04/2018 Hypokalemia 09/04/2018 Menopausal syndrome 09/04/2018 Otitis media 09/04/2018 Posterior rhinorrhea 09/04/2018 Productive cough 09/04/2018 Syncope 09/04/2018 Upper respiratory infection 09/04/2018 Arthritis of midfoot 12/14/2017 Encounter for screening mamm ogram for malignant neoplasm of breast 10/30/2017 Sural neuropathy 11/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 Body mass index (bmi) 29.0-29.9, adult 7 Actinic keratosis 03/14/2016 Lentigo 03/14/2016 Benign neoplasm of soft tissues 03/14/2016 Keratosis, senilis 03/14/2016 Benign neoplasm of lower extremity 01/22/2016 Mass of lower extremity 01/21/2016 Hypertension 01/21/2016 Overview (09/18/2023): PCP [place], [place] Allergy to seafood 12/16/2015 Overview (10/21/2020): Converted from Centricity: Description - SHELLFISH ALLERGY Converted from Centricity: Description - SHELLFISH ALLERGY Other serum reaction due to other serum, subsequent encounter 12/16/2015 Overview (10/21/2020): Converted from Centricity: Description - OTHER SERUM REACTION DUE TO OTHER SERUM, SUBSEQUENT ENCOUNTER Comments - horse serum allergy Converted from Centricity: Description - OTHER SERUM REACTION DUE TO OTHER SERUM, SUBSEQUENT ENCOUNTER Comments - horse serum allergy Encounter for screening for malignant neoplasm 0 10/05/2015 Nonrheumatic mitral valve insufficiency 03/18/20 15 Overview (10/21/2020): Converted from Centricity: Description - NONRHEUMATIC MITRAL (VALVE) INSUFFICIENCY Converted from Centricity: Description - NONRHEUMATIC MITRAL (VALVE) INSUFFICIENCY Left bundle branch block (LBBB) 04/28/2014 Overview (09/18/2023): Converted from Centricity: Description - LEFT BUNDLE-BRANCH BLOCK, UNSPECIFIED Converted from Centricity: Description - LEFT BUNDLE-BRANCH BLOCK, UNSPECIFIED per med records new LBBB 2013; saw Dr Rudy Hudson in [place]; nuc med stress Apr 2014 NEG; repeated stress echo Apr 2015 NEG for ischemia; mitral regurg w EF 55-60%. Essential (primary) hypertension 03/07/2012 Overview (10/21/2020): Converted from Centricity: Description - BENIGN ESSENTIAL HYPERTENSION Converted from Centricity: Description - BENIGN ESSENTIAL HYPERTENSION Gastroesophageal reflux disease 03/07/2012 Encounters Date Type Department Care Team Description 11/26/2024 1:45 PM CDT Office Visit [facility] Medicine Orthopaedic Surgery [address] [facility] [address] [place] [id number] Tae Chatman NP Left foot pain (Primary Dx) 11/26/2024 1:07 PM CDT - 11/26/2024 11:59 PM CDT Hospital Encounter [facility] [address] [facility] [address] [place] [phone] Left foot pain Discharge Disposition: Discharge to home or self care 11/01/2024 [facility] [address] [facility] 5th [place] [address] [place] [address] Marion Martinez MBA Med question & BP Readings 10/28/2024 10:45 AM CDT Office Visit [facility] Cardiology [address] [place] [address] Khang Newsome MD Complete heart block (HCC) (Primary Dx); Cardiac pacemaker in situ 10/23/2024 10:00 AM CDT Office Visit [facility] Medicine Orthopaedic Surgery [address] [place] [address] 6th [place] [address] Rudolph Fleming MD Pain of foot, unspecified laterality (Primary Dx); Left knee pain, unspecified chronicity; Trigger ring finger of right hand; Trigger ring finger of left hand; Arthritis of right hand 10/19/2024 Results Follow-Up [facility] [address] [place] [address] 5th [place] [address] [place] [address] Marion Kamara MD CBC with auto differential, Comprehensive metabolic panel, Magnesium, Additional followed-up results: 6 10/18/2024 2:30 PM CDT - 10/18/2024 11:59 PM CDT Hospital Encounter [address] [address] Hypertension, unspecified type; Hypokalemia; Urinary frequency Discharge Disposition: Discharge to home or self care 10/18/2024 11:00 AM CDT Office Visit [facility] [address] [place] [address] 5[address] [place] [address] Marion Kamara MD Hypertension, unspecified type (Primary Dx); Hypokalemia; Urinary frequency; Vertigo 10/18/2024 Orders Only [facility] [address] [place] [address] 5[address] [place] [address] Homa Brito Vertigo (Primary Dx) 10/18/2024 Telephone [facility] Medicine Otolaryngology [address] [place] [address] 11th [place] [id number] Kisha Soto Au.D. 10/18/2024 Telephone [facility] [address] [place] [address] 5th [place] [address] Homa Brito 10/10/2024 Telephone [facility] Cardiology [address] [place] [address] Khang Newsome MD 10/08/2024 11:50 AM CDT - 10/14/2024 2:49 PM CDT Hospital Encounter [facility] [address] [place] [address] Larry Tucker MD Bakeer, MD Lurdes Ruiz, MD Lionel Adame, Liliane Nix MD Gait disturbance (Primary Dx); Hypertension, unspecified type Discharge Disposition: Discharge to home or self care 10/08/[address] [place] [address] Alisha Homa 10/01/2024 9:30 AM CDT Ancillary Procedure [facility] Cardiology [address] [facility] [address], [place] [id number] Complete heart block (HCC); Cardiac pacemaker in situ 09/18/2024 Results Follow-Up [address] 5[address] Floor [address] [place] [place] [address] Marion Kamara MD CBC with auto differential, Comprehensive metabolic panel, Lipid panel, Additional followed-up results: 7 09/17/[address] 5th [place] [address] Marion Martinez MBA Referral - ortho surgeon 09/16/2024 12:30 PM CDT Office Visit [address] 5th [place] [address] Marion Kamara MD Primary hypertension (Primary Dx); Arthritis of left midfoot; Cardiac pacemaker in situ; Primary osteoarthritis involving multiple joints; Physical exam; Vitamin B12 deficiency; Vitamin D deficiency 09/11/2024 10:20 AM CDT Office Visit [facility] Medicine Orthopaedic Surgery [address] [place] [address] 6th [place] [id number] Rudolph Fleming MD Arthritis of both hands (Primary Dx); Bone spur of interphalangeal joint of finger from Last 3 Months Immunizations Immunization Administration Dates Next Due BCG 06/05/2018 Hep A, Adult 09/23/2011,12/03/2010 Hep B Vaccine 04/10/2010 Hep B, Unspecified 04/10/2010 Influenza, Quadrivalent, Hig h Dose, Preservative Free, Intrr 01/13/2023,02/14/2022 Influenza, Trivalent, High D ose, Split, Preservative Free, Intramuscular 01/28/2018,01/08/2017 Influenza, Trivalent, IM (MDV) 04/10/2013,2012 Influenza, Unspecified 01/30/2020,01/08/2019 Moderna SARS-CoV-2 Monovalent Vaccination (12+ Y RS) 01/08/2021 Pneumococcal Conjugate PCV 13 01/30/2020, 015 Pneumococcal Polysaccharide PPV23 04/10/2012, ZOSTER LIVE 04/10/2010,11/10/2006 Surgical History Surgery Date Site/Laterality Comments FOOT SURGERY Foot Repair - (Added by TW Conv) FLUORO GUIDED INJECTION ANKLE LEFT 01/10/2019 Left JOINT REPLACEMENT 10/09/2019 - 11/08/2019 Left left partial knee replacement Dr. Reynoso in [place] FLUORO GUIDED INJECTION ANKLE LEFT 10/06/2020 Left FLUORO GUIDED INJECTION ANKLE LEFT 11/09/2021 Left HIP SURGERY CARDIAC PACEMAKER PLACEMENT 01/21/2022 [facility] FLUORO GUIDED INJECTION ANKLE LEFT 12/09/2022 Left Medical History Medical History Date Comments Arthritis Cancer (HCC) Hypertension Family History Medical History Relation Name Comments Colon cancer Daughter Family history of colon cancer - (Added by TW Conv) Cancer Father Cervical cancer Mother Family histo ry of malignant neoplasm of cervix - (Added by TW Conv) Heart disease Mother Colon cancer Other Family history of colon cancer - Relation: Aunt (Added by TW Conv) Relation Name Status Comments Daughter Father Mother Other Social History Tobacco Use Types Packs/Day Years Used Date Smoking Tobacco: Former Smokeless Tobacco: Never Tobacco Cessation:Counseling Given: Not Answered Personal Safety Answer Date Recorded Have you ever been in or are you currently in a harmful physical or emotional relationship or is someone making you feel afraid or unsafe? 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 Gender Identity Female 09/30/2023 6:44 PM CDT Sexual Orientation Straight 09/30/2023 6: 44 PM CDT Obstetrics History Last Filed Vital Signs Vital Sign Reading Time Taken Comments Blood Pressure 152/78 10/28/2024 11:02 AM CDT Pulse 92 10/28/2024 11:02 AM CDT Temperature 36.5 C (97.7 F) 10/14/2024 5:50 AM CDT Respiratory Rate 16 10/14/2024 5:50 AM CDT Oxygen Saturation 99% 10/28/2024 11:02 AM CDT Inhaled Oxygen Concentration - - Weight 75.3 kg (166 lb) 10/28/2024 11:02 AM CDT Height 162.6 cm (5' 4) 10/28/2024 11:02 AM CDT Body Mass Index 28.49 10/28/2024 11:02 AM CDT Plan of Treatment Scheduled Procedures Name Priority Associated Diagnoses Date/Ti me COLONOSCOPY Colon cancer screening COLONOSCOPY Family history of colon cancer in mother COLONOSCOPY Family history of colon cancer in mother Health Maintenance Due Date Last Done Comments Depression Screening 1940 Osteoporosis Screening-Bone Density Scan 1940 DTaP/Tdap/Td Vaccine (1 - Tdap) 1950 Well Visit 65+ 2004 Zoster Vaccine (2 of 3) 06/05/2010 04/10/2010, 11/10 Covid-19 Vaccine (4 - 2024-2 6 season) 2024 01/08/2021, 06/05/2020, 05/07/2020 Influenza Vaccine (#1) 2024 3, 02/14/2022, 01/30/2020, Additional history exists Fall Risk Assessment 10/14/2025 10/14/2024 Hepatitis B Screening Completed 04/10/2010, 011 Pneumococcal vaccine 65+ Completed 020, 01/07/2015, 04/10/2012, Additional history exists Medical Devices Implanted Type Area Certified Driver Examiner Device Identifier Shelf Expiration Date Model / Serial / Lot Biotronik Ra Lead Solia S 45-01/17/2022 Implanted:01/08 (Quantity not on file) Lead Heart Biotronik SOLIA S 45 / / Biotronik Rv Lead Solia S 53-01/17/2022 Implanted:01/08 (Quantity not on file) Lead Heart Biotronik SOLIA S 53 / / Biotronik Pm Edora 8 DrEvanT- Implanted:01/08 (Quantity not on file) Pacemaker Chest Wall Biotronik EDORA 8 CAROLT / / Procedures Procedure Name Priority Date/Time Associated Diagnosis Comments XR FOOT LEFT 3 OR MORE VIEWS Schedule Routine, Read Routine (OP Routine) 11/26/2024 1:19 PM CDT Left foot pain IN ARTHROCENTESIS ASPIR&/INJ SMALL JT/BURSA W/O US Routine 10/23/2024 10:00 AM CDT Arthritis of right hand IN INJECTION 1 TENDON SHEATH/LIGAMENT APONEUROSIS Routine 10/23/2024 10:00 AM CDT Trigger ring finger of left hand IN INJECTION 1 TENDON SHEATH/LIGAMENT APONEUROSIS Routine 10/23/2024 10:00 AM CDT Trigger ring finger of right hand ECG 12-LEAD Routine 10/18/2024 11:55 AM CDT Hypertension, unspecified type EGFR Routine 10/18/2024 11:50 AM CDT Hypertension, unspecified type Hypokalemia URINALYSIS, MICROSCOPIC ONLY Routine 10/18/2024 11:50 AM CDT Urinary frequency DIFFERENTIAL AUTO Routine 10/18/2024 11: 50 AM CDT Hypertension, unspecified type PRO B-TYPE NATRIURETIC PEPTIDE Routine 10/18/2024 11:50 AM CDT Hypertension, unspecified type TROPONIN I HIGH-SENSITIVITY Routine 10/18/2024 11:50 AM CDT Hypertension, unspecified type MAGNESIUM Routine 10/18/2024 11:50 AM CDT Hypertension, unspecified type COMPREHENSIVE METABOLIC PANEL Routine 10/18/2024 11:50 AM CDT Hypertension, unspecified type Hypokalemia CBC WITH AUTO DIFFERENTIAL Routine 10/18/2024 11:50 AM CDT Hypertension, unspecified type URINALYSIS AND REFLEX TO MICROSCOPIC AND CULTURE Routine 10/18/2024 11:50 AM CDT Urinary frequency MRI BRAIN WO CONTRAST ED 10/14/2024 10:35 AM CDT TRANSTHORACIC ECHO (TTE) COMPLETE W DOPPLER/CF W CONTRAST STAT 10/12/2024 9:13 AM CDT CTA HEAD NECK W WO CONTRAST IP Routine 10/10/2024 9:56 PM CDT EGFR Routine 10/10/2024 9:11 PM CDT DIFFERENTIAL AUTO Routine 10/10/2024 9:1 1 PM CDT CBC WITH AUTO DIFFERENTIAL Routine 10/10/2024 9:11 PM CDT COMPREHENSIVE METABOLIC PANEL Routine 10/10/2024 9:11 PM CDT DEVICE CHECK - REMOTE Routine 10/10/2024 5:16 PM CDT Complete heart block (HCC) Cardiac pacemaker in situ CT HEAD WO CONTRAST IP Routine 10/10/2024 2 :40 PM CDT XR CHEST PA LATERAL 2 VIEWS ED Urgent/IP Urgent 10/09/2024 10:40 AM CDT LIPID PANEL Timed 10/08/2024 10:25 PM CDT EGFR Timed 10/08/2024 10:25 PM CDT BASIC METABOLIC PANEL Timed 10/08/2024 10:25 PM CDT TROPONIN I HIGH-SENSITIVITY 2-HOUR Timed 10/08/2024 1:29 PM CDT URINALYSIS, MICROSCOPIC ONLY STAT 10/08/2024 12:23 PM CDT URINALYSIS AND REFLEX TO MICROSCOPIC STAT 10/08/2024 12:23 PM CDT ECG 12-LEAD STAT 10/08/2024 11:31 AM CDT ED CRITICAL CARE Routine 10/08/2024 11:[address] STROKE PROTOCOL WO CONTRAST Critical/Life-T hreatening 10/08/2024 11:08 AM CDT POCT PROTHROMBIN TIME, WHOLE BLOOD Routine 10/08/2024 11:03 AM CDT POCT GLUCOSE DEVICE Routine 10/08/2024 1 1:02 AM CDT HEMOGLOBIN A1C STAT 10/08/2024 10:59 AM CDT MAGNESIUM STAT 10/08/2024 10:59 AM CDT PHOSPHORUS STAT 10/08/2024 10:59 AM CDT EGFR STAT 10/08/2024 10:59 AM CDT DIFFERENTIAL AUTO STAT 10/08/2024 10: 59 AM CDT TROPONIN I HIGH-SENSITIVITY SERIES (BASELINE, 2HR, 4HR, 6HR) STAT 10/08/2024 10:59 AM CDT APTT STAT 10/08/2024 10:59 AM CDT COMPREHENSIVE METABOLIC PANEL STAT 10/08/2024 10:59 AM CDT CBC WITH AUTO DIFFERENTIAL STAT 10/08/2024 10:59 AM CDT ECG 12-LEAD Routine 09/16/2024 3:11 PM CDT Primary hypertension Cardiac pacemaker in situ Physical exam ERYTHROCYTE SEDIMENTATION RATE Routine 09/16/2024 2:42 PM CDT CRP (ACUTE PHASE) Routine 09/16/2024 2:4 2 PM CDT NOTE Routine 09/16/2024 2:42 PM CDT URINALYSIS AND REFLEX TO MICROSCOPIC Routine 09/16/2024 2:42 PM CDT Physical exam VITAMIN D 25 HYDROXY Routine 09/16/2024 2:42 PM CDT Vitamin D deficiency VITAMIN B12 Routine 09/16/2024 2:42 PM CDT Vitamin B12 deficiency TSH Routine 09/16/2024 2:42 PM CDT Primary hypertension Physical exam LIPID PANEL Routine 09/16/2024 2:42 PM CDT Physical exam COMPREHENSIVE METABOLIC PANEL Routine 09/16/2024 2:42 PM CDT Physical exam CBC WITH AUTO DIFFERENTIAL Routine 09/16/2024 2:42 PM CDT Physical exam from Last 3 Months Results * XR Foot Left 3 or More Views (11/26/2024 1:19 PM CDT) Anatomical Region Laterality Modality Lower Extremities, Foot Left Computed Radiography 11/26/2024 3:13 PM CDT Impressions 11/26/2024 3:46 PM CDT 1. 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 Dictated by: Sue Knox MD The radiology attending physician has personally reviewed this study, and had reviewed and/or edited this written report and agrees with it. Electronically signed by: Meng Felder M.D. Narrative 11/26/2024 3:46 PM CDT EXAMINATION: XR FOOT LEFT 3 OR MORE VIEWS HISTORY: Left foot pain FINDINGS: 3 radiographs of the left foot are submitted for interpretation. Comparison radiographs dated 11/14/2022. No acute fractures. Progressive, severe 4th tarsometatarsal joint osteoarthritis. Unchanged severe 1st through 3rd tarsometatarsal joint osteoarthritis. Unchanged moderate 1st metatarsophalangeal joint osteoarthritis. There is varus deviation at the 1st through 3rd metatarsophalangeal joints. There is mild pes planovalgus. Small plantar calcaneal spur. Procedure Note Meng Felder MD - 11/26/2024 EXAMINATION: XR FOOT LEFT 3 OR MORE VIEWS HISTORY: Left foot pain FINDINGS: 3 radiographs of the left foot are submitted for interpretation. Comparison radiographs dated 11/14/2022. No acute fractures. Progressive, severe 4th tarsometatarsal joint osteoarthritis. Unchanged severe 1st through 3rd tarsometatarsal joint osteoarthritis. Unchanged moderate 1st metatarsophalangeal joint osteoarthritis. There is varus deviation at the 1st through 3rd metatarsophalangeal joints. There is mild pes planovalgus. Small plantar calcaneal spur. IMPRESSION: 1. 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 Dictated by: Sue Knox MD The radiology attending physician has personally reviewed this study, and had reviewed and/or edited this written report and agrees with it. Electronically signed by: Meng Felder M.D. [employer] IMG XR PROCEDURES Final Re sult * IN INJECTION 1 TENDON SHEATH/LIGAMENT APONEUROSIS (10/23/2024 10:00 AM CDT) Narrative Rudolph Fleming MD - 10/23/2024 10:00 AM CDT Rudolph Fleming MD 10/23/2024 7:47 PM Hand / Upper Extremity Injection: L ring A1 Performed by: Rudolph Fleming MD Authorized by: Rudolph Fleming MD Consent Given by: Patient Verbal consent obtained?: Yes Indications: Pain Condition: trigger finger Location: Ring finger Site: L ring A1 Prep: patient was prepped and draped in usual sterile fashion Needle Size: 25 G Approach: Dorsal Medications Left Ring Injection: 1 mL lidocaine 10 mg/mL (1 %); 40 mg methylPREDNISolone acetate 40 mg/mL Patient tolerance: Patient tolerated the procedure well with no immediate complications After a discussion of the pros, cons, risks, and benefits of a cortisone injection, the patient requested that we proceed. We specifically discussed the risks of skin lightening, subcutaneous fat atrophy, pain upon injection and the possibility of a flare reaction. The patient wished to proceed. us Rudolph Fleming MD IN CLINIC/BEDSIDE ORDERAB LES Final Result * IN INJECTION 1 TENDON SHEATH/LIGAMENT APONEUROSIS (10/23/2024 10:00 AM CDT) Rudolph Vela MD - 10/23/2024 10:00 AM CDT Rudolph Fleming MD 10/23/2024 7:47 PM Hand / Upper Extremity Injection: R ring A1 Performed by: Rudolph Fleming MD Authorized by: Rudolph Fleming MD Consent Given by: Patient Verbal consent obtained?: Yes Indications: Pain Condition: trigger finger Location: Ring finger Site: R ring A1 Prep: patient was prepped and draped in usual sterile fashion Needle Size: 25 G Approach: Dorsal Medications Right Ring Injection: 1 mL lidocaine 10 mg/mL (1 %); 40 mg methylPREDNISolone acetate 40 mg/mL Patient tolerance: Patient tolerated the procedure well with no immediate complications After a discussion of the pros, cons, risks, and benefits of a cortisone injection, the patient requested that we proceed. We specifically discussed the risks of skin lightening, subcutaneous fat atrophy, pain upon injection and the possibility of a flare reaction. The patient wished to proceed. us Rudolph Fleming MD IN CLINIC/BEDSIDE ORDERAB LES Final Result * IN ARTHROCENTESIS ASPIR&/INJ SMALL JT/BURSA W/O US (10/23/2024 10:00 AM CDT) Rudolph Vela MD - 10/23/2024 10:00 AM CDT Rudolph Fleming MD 10/23/2024 7:47 PM Small Joint Injection: R long MCP Performed by: Rudolph Fleming MD Authorized by: Rudolph Fleming MD Supporting Documentation: Indications: Pain Procedure Details: Location: Long finger Site: R long MCP Ultrasound guidance: No Medications: 40 mg methylPREDNISolone acetate 40 mg/mL; 1 mL lidocaine 10 mg/mL (1 %) Today we recommended a steroid injection. Risks of the injection were explained to include infection, flare reaction, skin depigmentation, dimpling, temporary elevation in blood sugars in patients with diabetes, and possible tendon rupture damage to cartilage with repeated injections. Injection performed with an alcohol preparation. us Rudolph Fleming MD IN CLINIC/BEDSIDE ORDERAB LES Final Result * ECG 12 lead (10/18/2024 11:55 AM CDT) Impressions Marion Kamara MD - 10/18/2024 11:55 AM CDT Paced rhythm with a rate of 82. Marion Kamara MD ECG ORDERABLES Final Re sult * Troponin I high-sensitivity (10/18/2024 11:50 AM CDT) Trop I hs 6 <=17 ng/L Comment: Interpretive Data For further hscTnI resources including the diagnostic algorithm and an aid in interpretation, copy and paste this link: [email or web address].testcatalog.org/show/[email or web address] Current Interpretive Data last revised 2019. Blood 10/18/2024 11:5 0 AM CDT 10/18/2024 5:10 PM CDT us Marion Kamara MD LAB BLOOD ORDERABLES Fin al Result [facility] [place] [address] * eGFR (10/18/2024 11:50 AM CDT) eGFR 63 >=60 mL/min/1. 73 m2 Comment: Interpretive Data Reference Interval Normal >/= 90 mL/min/1.73m2 Mildly decreased* 60 - 89 mL/min/1.73m2 Mildly to moderately decreased 45 - 59 mL/min/1.73m2 Moderately to severely decreased 30 - 44 mL/min/1.73m2 Severely decreased 15 - 29 mL/min/1.73m2 Kidney Failure < 15 mL/min/1.73m2 *Relative to young adult level Estimated glomerular filtration rate is determined by the 2020 CKD-EPI equation recommended by the National Kidney Foundation (A Unifying Approach to GFR Estimation: Recommendations of the NKF-ASK Task Force on Reassessing the Inclusion of Race in Diagnosing Kidney Disease, JASN 202). The CKD-EPI equation should not be used for patients with unstable renal function and has not been validated in children and those over 70. Current interpretive data was last reviewed 2021. Blood 10/18/2024 11:5 0 AM CDT 10/18/2024 5:20 PM CDT us Marion Kamara MD LAB BLOOD ORDERABLES Fin al Result [facility] [place] [address] * Differential, auto (10/18/2024 11:50 AM CDT) Neutrophil abs 3.96 1.50 - 6.50 K/cumm Imm gran abs 0.01 0.00 - 0.10 K/cumm [facility] Lymphocyte abs 1.86 0.80 - 3.30 K/cumm [facility] Monocyte abs 0.60 0.20 - 0.80 K/cumm [facility] Eosinophil abs 0.45 0.00 - 0.50 K/cumm [facility] Basophil abs 0.06 0.00 - 0.10 K/cumm [facility] Neutrophil pct 57.1 % [facility] Comment: Interpretive Data Percent cell count reference ranges are not reported, since discordance with absolute values may lead to misinterpretation of CBC data. Current Interpretive Data was last revised on 2017. Imm gran pct 0.1 % [facility] Comment: Interpretive Data Percent cell count reference ranges are not reported, since discordance with absolute values may lead to misinterpretation of CBC data. Current Interpretive Data was last revised on 2017. Lymphocyte pct 26.8 % [facility] Comment: Interpretive Data Percent cell count reference ranges are not reported, since discordance with absolute values may lead to misinterpretation of CBC data. Current Interpretive Data was last revised on 2017. Monocyte pct 8.6 % [facility] Comment: Interpretive Data Percent cell count reference ranges are not reported, since discordance with absolute values may lead to misinterpretation of CBC data. Current Interpretive Data was last revised on 2017. Eosinophil pct 6.5 % [facility] Comment: Interpretive Data Percent cell count reference ranges are not reported, since discordance with absolute values may lead to misinterpretation of CBC data. Current Interpretive Data was last revised on 2017. Basophil pct 0.9 % [facility] Comment: Interpretive Data Percent cell count reference ranges are not reported, since discordance with absolute values may lead to misinterpretation of CBC data. Current Interpretive Data was last revised on 2017. Blood 10/18/2024 11:5 0 AM CDT 10/18/2024 5:10 PM CDT us Marion Kamara MD LAB BLOOD ORDERABLES Fin al Result [facility] [place] [address] * Pro B-type natriuretic peptide (10/18/2024 11:50 AM CDT) NT-proBNP <50 <=450 pg/mL Comment: Interpretive Comments: A. Dyspnea in Acute Care Setting All Ages: < 300 pg/ml, acute heart failure unlikely. < 50 yrs: 300 - 450 pg/ml, further investigation warranted. > 450 pg/ml, acute heart failure likely. 50 - 74 yrs: 300 - 900 pg/ml, further investigation warranted. > 900 pg/ml, acute heart failure likely . > or = 75 yrs: 450 - 1800 pg/ml, further investigation warranted. > 1800 pg/ml, acute heart failure likely. B. Non-acute Setting < 75 yrs < 125 pg/ml, rules out heart failure. > or = 125 pg/ml, further investigation warranted. > or = 75 yrs < 450 pg/ml, rules out heart failure. > or = 450 pg/ml, further investigation warranted. - Knowledge of each individual patient's NT-proBNP range may be more useful than using similar cut-points for every patient. Please note that marked elevations in NT-proBNP levels may be observed in state other than Left Ventricular Congestive Failure, including: acute coronary syndromes, right heart strain/failure (including pulmonary embolism and cor pulmonale), critical illness, renal failure, as well as advanced age. - References: 1. Mercy LOYD et.al. Eur Heart J. 2006:27:330-337. 2. Haroldo RW, Jolene BRANDT. J. AM Mike Cardiol: Cardiovasc Imag. 2009;2: 216- 225. Interpretive Data Last Revised Date: 2017. Blood 10/18/2024 11:5 0 AM CDT 10/18/2024 5:10 PM CDT us Marion Kamara MD LAB BLOOD ORDERABLES Fin al Result [facility] [place] [address] * (ABNORMAL) Urinalysis reflex to microscopic and culture Urine, clean voided (10/18/2024 11:50 AM CDT) Color, ur Yellow Yellow Clarity, ur Clear Clear [facility] Specific gravity, ur 1.023 1.003 - 1.030 [facility] pH, urine 5.5 [facility] Comment: Interpretive Data U rine pH is affected by diet, medications, systemic acid-base disturbances, and renal tubular function. pH may affect urinary stone formation. For example, urine pH below 6.0 may help reduce the tendency for calcium phosphate stones and pH greater than 6.0 may reduce the tendency for uric acid stone formation. Source: [facility] Occasion Current Interpretive Data was last revised on 2017 Protein, ur ql Trace Negative [facility] Glucose, ur ql Negative Negative [facility] Ketones, ur Negative Negative [facility] Bilirubin, ur Negative Negative [facility] Blood, ur Negative Negative [facility] Urobilinogen, ur <2.0 <2.0 mg/dL [facility] Nitrite, ur Negative Negative [facility] Leukocyte esterase, ur 1+(A) Negative [facility] UA reflex comment Reflex to microscopic UA will be performed. [facility] Urine, clean voided 10/18/2024 11:50 AM CDT 10/18/2024 5:10 PM CDT us Marion Kamara MD LAB MICROBIOLOGY - GENER AL ORDERABLES Final Result Performing Organization Address City/[facility] Co de Phone Number [facility] [place] [address] * CBC with auto differential (10/18/2024 11:50 AM CDT) WBC 6.94 3.80 - 9.90 K/cumm Hgb 12.7 11.9 - 15.5 g/dL [facility] Hct 37.8 35.6 - 45.5 % [facility] Plt 195 150 - 400 K/cumm [facility] MPV 9.6 9.1 - 12.3 fL [facility] RBC 4.03 3.90 - 5.20 M/cumm [facility] MCV 93.8 81.3 - 96.4 fL [facility] MCH 31.5 27.1 - 33.3 pg [facility] MCHC 33.6 32.3 - 35.7 g/dL [facility] RDW CV 13.0 11.1 - 14.9 % [facility] RDW SD 44.5 35.7 - 48.1 fL [facility] NRBC abs 0.00 0.00 - 0.01 K/cumm [facility] Blood 10/18/2024 11:5 0 AM CDT 10/18/2024 5:10 PM CDT Marion Kamara MD LAB BLOOD ORDERABLES Fin al Result Performing Organization Address City/[facility] de Phone Number [facility] [place] [address] * (ABNORMAL) Urinalysis, microscopic only (10/18/2024 11:50 AM CDT) [facility] WBC, ur 6-10(A) 0 - 5 /HPF RBC, ur 0-2 0 - 2 /HPF [facility] Epithelial cells, squamous, ur 1-5 0 - 5 /HPF [facility] Mucous, ur Present(A) [facility] Culture Reflex Comment Reflex conditions for urine culture (WBC >10) not met. [facility] Urine, clean voided 10/18/2024 11:50 AM CDT 10/18/2024 5:10 PM CDT Marion Kamara MD LAB URINE ORDERABLES Fin al Result Performing Organization Address [facility] de Phone Number [facility] [place] [address] * Magnesium (10/18/2024 11:50 AM CDT) [facility] Magnesium 1.8 1.4 - 2.5 mg/dL Blood 10/18/2024 11:5 0 AM CDT 10/18/2024 5:10 PM CDT Marion Kamara MD LAB BLOOD ORDERABLES Fin al Result Performing Organization Address [facility] [place] [address] * Comprehensive metabolic panel (10/18/2024 11:50 AM CDT) [facility] Sodium 141 135 - 145 mmol/L Potassium, pl 3.4 3.3 - 4.9 mmol/L [facility] Chloride 103 97 - 110 mmol/L [facility] CO2 29 22 - 32 mmol/L [facility] Anion gap 9 2 - 15 mmol/L [facility] BUN 22 6 - 25 mg/dL [facility] Creatinine 0.90 0.60 - 1.10 mg/dL [facility] Glucose 95 70 - 199 mg/dL [facility] Comment: Interpretive Data Fasting glucose >/= 126 mg/dl is diagnostic for diabetes. Fasting is defined as no caloric intake for at least 8 hours. Fasting glucose between 100 mg/dl to 125 mg/dl is diagnostic of prediabetes. In a patient with classic symptoms of hyperglycemia or hyperglycemic crisis, a random glucose >/= 200 mg/dl is diagnostic for diabetes. In the absence of unequivocal hyperglycemia, results should be confirmed by repeat testing. The classification and Diagnosis of Diabetes Diabetes Care 2021; 46: S19-S40. Current interpretive data was last revised 2022. Calcium 10.3 8.5 - 10.3 mg/dL [facility] Bilirubin, total 1.2 0.1 - 1.2 mg/dL [facility] Protein, pl 6.8 6.5 - 8.5 g/dL [facility] Albumin 4.3 3.5 - 5.0 g/dL [facility] Alk phos 130 40 - 130 Units/L [facility] ALT 36 7 - 45 Units/L [facility] AST 28 10 - 45 Units/L [facility] Blood 10/18/2024 11:5 0 AM CDT 10/18/2024 5:10 PM CDT Marion Kamara MD LAB BLOOD ORDERABLES Fin al Result [facility] Department [place] [address] * MRI Brain WO Contrast (10/14/2024 10:35 AM CDT) Anatomical Region Laterality Modality Head and Neck N/A Magnetic Resonan ce 10/14/2024 12:2 5 PM CDT Impressions 10/14/2024 12:27 PM CDT 1. No acute intracranial abnormality. Dictated by: Todd Greenwood MD Dictated by: Bevington Cakir, M.D. The radiology attending physician has personally reviewed this study, and had reviewed and/or edited this written report and agrees with it. Electronically signed by: Gee Castro MD Narrative 10/14/2024 12:27 PM CDT EXAMINATION: Magnetic resonance imaging (MRI) of the brain and brainstem without contrast HISTORY: 84 years-old Female with gait disturbance. TECHNIQUE: Multiplanar multi-weighted MRI of the brain and brainstem was performed without intravenous contrast using the general brain protocol. COMPARISON: CTA head and neck from 10/10/2024. FINDINGS: The scalp and calvarium are normal. The superior sagittal sinus demonstrates normal venous flow. The corpus callosum is normal in shape and signal intensity. The posterior fossa is unremarkable. The pituitary and sella are normal. The brainstem and craniocervical junction are unremarkable. Diffusion weighted images reveal no hyperintensities to suggest acute cerebral infarction. The susceptibility weighted sequences reveal no evidence of acute or chronic hemorrhage. There is mild diffuse volume loss. Mild T2/FLAIR hyperintensity in the supratentorial subcortical and periventricular white matter, nonspecific but most likely due to chronic ischemic small vessel disease. The ventricles are normal in size and position without evidence of hydrocephalus. The paranasal sinuses are normal. The visualized portions of the mastoids are unremarkable. The orbits appear normal. Normal flow voids are demonstrated in the carotid arteries and basilar artery. Procedure Note Gee Castro MD - 10/14/2024 EXAMINATION: Magnetic resonance imaging (MRI) of the brain and brainstem without contrast HISTORY: 84 years-old Female with gait disturbance. TECHNIQUE: Multiplanar multi-weighted MRI of the brain and brainstem was performed without intravenous contrast using the general brain protocol. COMPARISON: CTA head and neck from 10/10/2024. FINDINGS: The scalp and calvarium are normal. The superior sagittal sinus demonstrates normal venous flow. The corpus callosum is normal in shape and signal intensity. The posterior fossa is unremarkable. The pituitary and sella are normal. The brainstem and craniocervical junction are unremarkable. Diffusion weighted images reveal no hyperintensities to suggest acute cerebral infarction. The susceptibility weighted sequences reveal no evidence of acute or chronic hemorrhage. There is mild diffuse volume loss. Mild T2/FLAIR hyperintensity in the supratentorial subcortical and periventricular white matter, nonspecific but most likely due to chronic ischemic small vessel disease. The ventricles are normal in size and position without evidence of hydrocephalus. The paranasal sinuses are normal. The visualized portions of the mastoids are unremarkable. The orbits appear normal. Normal flow voids are demonstrated in the carotid arteries and basilar artery. IMPRESSION: 1. No acute intracranial abnormality. Dictated by: Todd Greenwood MD Dictated by: Todd Greenwood M.D. The radiology attending physician has personally reviewed this study, and had reviewed and/or edited this written report and agrees with it. Electronically signed by: Gee Castro MD us [employer] IMG MRI PROCEDURES Final Re sult * TRANSTHORACIC ECHO (TTE) COMPLETE W DOPPLER/CF W CONTRAST (10/12/2024 9:13 AM CDT) EF Mod BP 62 % CONS SCIMAGE Anatomical Region Laterality Modality Ultrasound 10/12/2024 8:16 AM CDT Narrative 10/12/2024 1:25 PM CDT [facility] Cardiac [place] [address] Transthoracic Echocardiographic Report Patient Name: MARISOL YAÑEZ L : 1940 (84y 4m) Gender: F Study Date: 10/12/2024 08:16:55 AM Ht(Inch): 63 Wt(Lb): 160.94 BSA: 1.8 Scientific Investigator: Gil Cerda RDCS Location: [id number] Order Provider: LILIANE FLOWERS BMI: 28.51 BP: 139 / 60 Ref Provider: LILIANE FLOWERS - PROCEDURES: Echocardiographic Report: Transthoracic complete echo with strain imaging and contrast, 2D, spectral and tissue Doppler, color flow Doppler, M-mode. Contrast: Contrast Enhancement was Employed: After initial imaging due to sub- optimal quality related to co-morbidity defined by patient's body habitus and due to suboptimal image quality with inadequate visualization of at least 2 of 16 LV wall segments in any view after initial imaging. Perflutren contrast was administered using the volume necessary to obtain adequate images. 1.5 ml Optison Administered, (1.5 ml wasted). INDICATIONS: Stroke, follow up - CONCLUSIONS: 1. Borderline small left ventricular size based on volume index. Concentric LV hypertrophy. Normal left ventricular systolic function with dyskineis of the LV apex and akinesis of the apical wall. The Ejection Fraction (Carias's) is measured at 62 %. Unable to assess global longitudinal strain due to image quality. 2. Asymmetric septal hypertrophy is present (Septal thickness >= 1.5 cm and septal:posterior wall ratio >= 1.5. Consider hypertrophic cardiomyopathy). No systolic anterior motion of the mitral valve leaflets. 3. Wire noted in the right heart. Normal RV size with normal RVSF. Indentation of RV free wall of unclear clinical significance (im 1, 14). 4. There is no significant valvular heart disease. 5. Physiologic pericardial effusion. 6. Normal aortic root size when indexed. 7. IVC is small and collapses which supports decreased venous pressures. 8. The Estimated PASP is : 25+RAp mmHg. 9. Technically challenging study. ATTESTATION: I have personally reviewed and interpreted this study without fellow or resident. - DISCLAIMER: The study images and the final report will be retained in the patient chart by the Echo Laboratory for the legally required time period. This chart constitutes the legal record of any testing performed. FINDINGS: Study Quality: Poor with limited visualization of cardiac structures. Left Ventricle: Borderline small left ventricular size based on volume index. Concentric LV hypertrophy. Normal left ventricular systolic function with dyskineis of the LV apex and akinesis of the apical wall. The Ejection Fraction (Carias's) is measured at 62 %. Unable to assess global longitudinal strain due to image quality. Paradoxical septal motion consistent with RV pacemaker. Hypertrophic Cardiomyopathy: Asymmetric septal hypertrophy is present (Septal thickness >= 1.5 cm and septal:posterior wall ratio >= 1.5. Consider hypertrophic cardiomyopathy). No systolic anterior motion of the mitral valve leaflets. Right Ventricle: Wire noted in the right heart. Normal RV size with normal RVSF. Indentation of RV free wall of unclear clinical significance (im 1, 14). Left Atrium: The left atrium is not well visualized due to poor acoustic windows. Right Atrium: The right atrium is not well visualized due to poor acoustic windows. Wire/catheter tip noted in right atrium. Atrial Septum: Normal interatrial septum. Mitral Valve: Mitral annular calcification is present. Trace mitral regurgitation. No stenosis present. Aortic Valve: Probably trileaflet aortic valve. Mildly thickened aortic valve leaflets. No aortic valve stenosis. The mean transaortic gradient is 4 mmHg. The aortic valve area by the continuity equation (using VTI) is 2.11 cm2. Aortic valve dimensionless index is 0.65. Tricuspid Valve: Normal tricuspid valve structure. Mild tricuspid regurgitation. No tricuspid valve stenosis. Pulmonic Valve: Normal pulmonic valve structure. No pulmonic regurgitation. No pulmonic valve stenosis present. Pericardium: Physiologic pericardial effusion. There is an anterior echo free space consistent with large epicardial fat pad. Aorta: Normal aortic root size at sinuses of Valsalva. Normal aortic root size when indexed. The ascending aorta is normal in size when indexed. IVC: IVC is small and collapses which supports decreased venous pressures. PASP: The Estimated PASP is : 25+RAp mmHg. PV AT~54ms, abbreviated PV AT suggests increased mean PAp. MEASUREMENTS: 2D/MM Value Range Doppler Value Range LVIDd 2D 3.93 cm [ 3.80 - 5.20 ] AV Peak Sergio 1.3 m/s [ 1.0 - 1.7 ] LVIDs 2D 2.26 cm [ 2.20 - 3.50 ] AV Peak PG 6.76 mmHg IVSd 2D 1.81 cm [ 0.60 - 0.90 ] AV Mean PG 4 mmHg LVPWd 2D 1.21 cm [ 0.60 - 0.90 ] AV VTI 23.2 cm LV Thickness Ratio 1.5 LVOT Peak Sergio 0.8 m/s [ 0.7 - 1.1 ] LV FS 2D 43.47 % [ 27.00 - 45.00 ] LVOT Peak PG 2.56 mmHg LV Mass 2D 231.35 g LVOT Mean PG 2 mmHg LV Mass Index 2D 128.53 g/m2 LVOT VTI 15.0 cm RWT 0.62 LVOT Diam 2.04 cm EDV Mod BP 70.00 ml [ 46.00 - 106.00 ] OMKAR VTI 2.11 cm2 LV EDV Index 38.89 ml/m2 LVOT/AV VTI 0.65 - Dimensionless index (DVI) ESV Mod BP 26.00 ml [ 14.00 - 42.00 ] Med E` Sergio 8.2 cm/sec [ 8.0 - 25.0 ] EF Mod BP 62 % [ 54 - 74 ] Lat E` Sergio 6.6 cm/sec [ 10.0 - 25.0 ] LA Length 4C 4.72 cm RV S` 12.71 cm/sec LA Length 2C 4.11 cm TR Peak Sergio 2.3 m/s [ 1.0 - 2.8 ] LA Volume BP 26.17 ml TR Peak PG 20.6 mmHg LA Volume Index 14.54 ml/m2 [ 16.00 - 34.00 ] PV Peak Sergio 1.2 m/s [ 0.4 - 0.8 ] TAPSE 1.51 cm [ 1.71 - 5.00 ] PV Peak PG 5.76 mmHg AoR Diam 2D 3.13 cm [ 2.70 - 3.70 ] Ao Root Index 1.74 cm/m2 [ 1.00 - 2.00 ] Asc Ao Diam 2D 3.06 cm Asc Ao Index 1.70 cm/m2 Electronically Signed By: Carolyn Scott M.D. 10/12/2024 1:24:27 PM CDT Procedure Note Carolyn Scott MD - 10/12/2024 [facility] Cardiac [place] [address] Transthoracic Echocardiographic Report Patient Name: MARISOL YAÑEZ L : 1940 (84y 4m) Gender: F Study Date: 10/12/2024 08:16:55 AM Ht(Inch): 63 Wt(Lb): 160.94 BSA: 1.8 Scientific Investigator: Gil Cerda [facility] Location: [id number] Order Provider:LILIANE FLOWERS BMI: 28.51 BP: 139 / 60 Ref Provider: LIONELLILIANE - PROCEDURES: Echocardiographic Report: Transthoracic complete echo with strain imagingand contrast, 2D, spectral and tissue Doppler, color flow Doppler, M-mode. Contrast: Contrast Enhancement was Employed: After initial imaging due tosub- optimal quality related to co-morbidity defined by patient's body habitus and dueto suboptimal image quality with inadequate visualization of at least 2 of 16 LV wallsegments in any view after initial imaging. Perflutren contrast was administered using thevolume necessary to obtain adequate images. 1.5 ml Optison Administered, (1.5 mlwasted). INDICATIONS: Stroke, follow up - CONCLUSIONS: 1. Borderline small left ventricular size based on volume index.Concentric LV hypertrophy. Normal left ventricular systolic function with dyskineis ofthe LV apex and akinesis of the apical wall. The Ejection Fraction (Carias's) is measuredat 62 %. Unable to assess global longitudinal strain due to image quality. 2. Asymmetric septal hypertrophy is present (Septal thickness >= 1.5 cmand septal:posterior wall ratio >= 1.5. Consider hypertrophic cardiomyopathy).No systolic anterior motion of the mitral valve leaflets. 3. Wire noted in the right heart. Normal RV size with normal RVSF.Indentation of RV free wall of unclear clinical significance (im 1, 14). 4. There is no significant valvular heart disease. 5. Physiologic pericardial effusion. 6. Normal aortic root size when indexed. 7. IVC is small and collapses which supports decreased venous pressures. 8. The Estimated PASP is : 25+RAp mmHg. 9. Technically challenging study. ATTESTATION: I have personally reviewed and interpreted this study without fellow orresident. - DISCLAIMER: The study images and the final report will be retained in the patientchart by the Echo Laboratory for the legally required time period. This chart constitutesthe legal record of any testing performed. FINDINGS: Study Quality: Poor with limited visualization of cardiac structures. Left Ventricle: Borderline small left ventricular size based on volumeindex. Concentric LV hypertrophy. Normal left ventricular systolic function with dyskineisof the LV apex and akinesis of the apical wall. The Ejection Fraction (Carias's) ismeasured at 62 %. Unable to assess global longitudinal strain due to image quality.Paradoxical septal motion consistent with RV pacemaker. Hypertrophic Cardiomyopathy: Asymmetric septal hypertrophy is present(Septal thickness >= 1.5 cm and septal:posterior wall ratio >= 1.5. Consider hypertrophiccardiomyopathy). No systolic anterior motion of the mitral valve leaflets. Right Ventricle: Wire noted in the right heart. Normal RV size with normalRVSF. Indentation of RV free wall of unclear clinical significance (im 1, 14). Left Atrium: The left atrium is not well visualized due to poor acousticwindows. Right Atrium: The right atrium is not well visualized due to poor acousticwindows. Wire/catheter tip noted in right atrium. Atrial Septum: Normal interatrial septum. Mitral Valve: Mitral annular calcification is present. Trace mitralregurgitation. No stenosis present. Aortic Valve: Probably trileaflet aortic valve. Mildly thickened aorticvalve leaflets. No aortic valve stenosis. The mean transaortic gradient is 4 mmHg. Theaortic valve area by the continuity equation (using VTI) is 2.11 cm2. Aortic valvedimensionless index is 0.65. Tricuspid Valve: Normal tricuspid valve structure. Mild tricuspidregurgitation. No tricuspid valve stenosis. Pulmonic Valve: Normal pulmonic valve structure. No pulmonicregurgitation. No pulmonic valve stenosis present. Pericardium: Physiologic pericardial effusion. There is an anterior echofree space consistent with large epicardial fat pad. Aorta: Normal aortic root size at sinuses of Valsalva. Normal aortic rootsize when indexed. The ascending aorta is normal in size when indexed. IVC: IVC is small and collapses which supports decreased venouspressures. PASP: The Estimated PASP is : 25+RAp mmHg. PV AT~54ms, abbreviated PV ATsuggests increased mean PAp. MEASUREMENTS: 2D/MM Value Range DopplerValue Range LVIDd 2D 3.93 cm [ 3.80 - 5.20 ] AV Peak Vel1.3 m/s [ 1.0 - 1.7 ] LVIDs 2D 2.26 cm [ 2.20 - 3.50 ] AV Peak PG6.76 mmHg IVSd 2D 1.81 cm [ 0.60 - 0.90 ] AV Mean PG4 mmHg LVPWd 2D 1.21 cm [ 0.60 - 0.90 ] AV VTI23.2 cm LV Thickness Ratio 1.5 LVOT Peak Vel0.8 m/s [ 0.7 - 1.1 ] LV FS 2D 43.47 % [ 27.00 - 45.00 ] LVOT Peak PG2.56 mmHg LV Mass 2D 231.35 g LVOT Mean PG2 mmHg LV Mass Index 2D 128.53 g/m2 LVOT VTI15.0 cm RWT 0.62 LVOT Diam2.04 cm EDV Mod BP 70.00 ml [ 46.00 - 106.00 ] OMKAR VTI2.11 cm2 LV EDV Index 38.89 ml/m2 LVOT/AV VTI0.65 - Dimensionless index (DVI) ESV Mod BP 26.00 ml [ 14.00 - 42.00 ] Med E` Vel8.2 cm/sec [ 8.0 - 25.0 ] EF Mod BP 62 % [ 54 - 74 ] Lat E` Vel6.6 cm/sec [ 10.0 - 25.0 ] LA Length 4C 4.72 cm RV S`12.71 cm/sec LA Length 2C 4.11 cm TR Peak Vel2.3 m/s [ 1.0 - 2.8 ] LA Volume BP 26.17 ml TR Peak PG20.6 mmHg LA Volume Index 14.54 ml/m2 [ 16.00 - 34.00 ] PV Peak Vel1.2 m/s [ 0.4 - 0.8 ] TAPSE 1.51 cm [ 1.71 - 5.00 ] PV Peak PG5.76 mmHg AoR Diam 2D 3.13 cm [ 2.70 - 3.70 ] Ao Root Index 1.74 cm/m2 [ 1.00 - 2.00 ] Asc Ao Diam 2D3.06 cm Asc Ao Index1.70 cm/m2 Electronically Signed By: Carolyn Scott M.D. 10/12/2024 1:24:27 PM CDT us Liliane Flowers MD CV ECHO PROCEDURES Rebeca l Result * CTA Head Neck W WO Contrast (10/10/2024 9:56 PM CDT) Anatomical Region Laterality Modality Head and Neck N/A Computed Tomogra phy 10/10/2024 10:2 2 PM CDT Impressions 10/11/2024 10:54 AM CDT 1. No acute intracranial hemorrhage, mass effect, or large territorial infarct. 2. Mild calcific atherosclerosis at bilateral carotid bifurcations and within both internal carotid arteries resulting in less than 50% stenosis. No high-grade stenosis. Dictated by: Xu Puente MD, PHD The radiology attending physician has personally reviewed this study, and had reviewed and/or edited this written report and agrees with it. Electronically signed by: Ki Menchaca M.D. Narrative 10/11/2024 10:54 AM CDT EXAMINATION: 1. Computed tomography angiography (CTA) of the head without and with contrast 2. Computed tomography angiography (CTA) of the neck with contrast HISTORY: 84-year-old woman with strokelike symptoms on 10/08/2024. Evaluate for embolic source. TECHNIQUE: CT of the head was performed with images acquired from skull base to vertex without intravenous contrast. Computed tomographic angiography was obtained from the aortic arch to the vertex following the uneventful administration of intravenous contrast. 3D images of the CTA were generated on a dedicated workstation/ice cream server. Contrast information: 75 mL Optiray-350 IV COMPARISON: Comparison is made with CTs dated 10/08/2024 and 10/10/2024 FINDINGS: HEAD: There is no acute intracranial hemorrhage. Carotid artery calcifications. Ventricles are of normal size and morphology. No mass effect or midline shift is present. The harmon-white matter differentiation is normal. The visualized portions of the orbits are normal. The visualized portions of the mastoids are normal. The visualized portions of the paranasal sinuses are normal. No fractures are identified. NECK: Scattered subcentimeter lymph nodes are seen in the neck. None are pathologically enlarged. The muscles of the neck are normal. Fascial planes are preserved and the deep spaces of the neck are normal. The visualized airway is widely patent. The base of the skull and the temporal bones are normal. Limited views of the brain including the cerebellum and brainstem are normal. The visualized portions of the orbits are normal. The spinal canal is normal in caliber. Mild degenerative disc disease most notable from C4 through C6. No high-grade spinal canal or neural foraminal stenosis. Limited examination of the superior thorax shows no pulmonary infiltrate, suspicious nodules, or pleural effusions. CTA: The visualized aortic arch appears normal with normal configuration of the great vessels. The innominate artery and both subclavian arteries are normal in course and caliber. The common carotid arteries are normal in course and caliber with mild calcific atherosclerosis at the carotid bifurcations bilaterally resulting in less than 50% stenosis. The course and caliber of the internal carotid arteries in the neck are normal. There is mild calcific atherosclerosis of the right greater than left supraclinoid internal carotid arteries resulting in less than 50% stenosis The [place] is complete. Azygous CRISTINA. The anterior and middle cerebral arteries are normal. The vertebral arteries are codominant. The basilar artery is normal. The posterior cerebral arteries are normal. There is no aneurysm or vascular malformation identified. Procedure Note Ki Menchaca MD - 10/11/2024 EXAMINATION: 1. Computed tomography angiography (CTA) of the head without and with contrast 2. Computed tomography angiography (CTA) of the neck with contrast HISTORY: 84-year-old woman with strokelike symptoms on 10/08/2024. Evaluate for embolic source. TECHNIQUE: CT of the head was performed with images acquired from skull base to vertex without intravenous contrast. Computed tomographic angiography was obtained from the aortic arch to the vertex following the uneventful administration of intravenous contrast. 3D images of the CTA were generated on a dedicated workstation/ice cream server. Contrast information: 75 mL Optiray-350 IV COMPARISON: Comparison is made with CTs dated 10/08/2024 and 10/10/2024 FINDINGS: HEAD: There is no acute intracranial hemorrhage. Carotid artery calcifications. Ventricles are of normal size and morphology. No mass effect or midline shift is present. The harmon-white matter differentiation is normal. The visualized portions of the orbits are normal. The visualized portions of the mastoids are normal. The visualized portions of the paranasal sinuses are normal. No fractures are identified. NECK: Scattered subcentimeter lymph nodes are seen in the neck. None are pathologically enlarged. The muscles of the neck are normal. Fascial planes are preserved and the deep spaces of the neck are normal. The visualized airway is widely patent. The base of the skull and the temporal bones are normal. Limited views of the brain including the cerebellum and brainstem are normal. The visualized portions of the orbits are normal. The spinal canal is normal in caliber. Mild degenerative disc disease most notable from C4 through C6. No high-grade spinal canal or neural foraminal stenosis. Limited examination of the superior thorax shows no pulmonary infiltrate, suspicious nodules, or pleural effusions. CTA: The visualized aortic arch appears normal with normal configuration of the great vessels. The innominate artery and both subclavian arteries are normal in course and caliber. The common carotid arteries are normal in course and caliber with mild calcific atherosclerosis at the carotid bifurcations bilaterally resulting in less than 50% stenosis. The course and caliber of the internal carotid arteries in the neck are normal. There is mild calcific atherosclerosis of the right greater than left supraclinoid internal carotid arteries resulting in less than 50% stenosis The [place] division [place] is complete. Azygous CRISTINA. The anterior and middle cerebral arteries are normal. The vertebral arteries are codominant. The basilar artery is normal. The posterior cerebral arteries are normal. There is no aneurysm or vascular malformation identified. IMPRESSION: 1. No acute intracranial hemorrhage, mass effect, or large territorial infarct. 2. Mild calcific atherosclerosis at bilateral carotid bifurcations and within both internal carotid arteries resulting in less than 50% stenosis. No high-grade stenosis. Dictated by: Xu Puente MD, PHD The radiology attending physician has personally reviewed this study, and had reviewed and/or edited this written report and agrees with it. Electronically signed by: Ki Menchaca M.D. Payal Baptiste NP IMG CT PROCEDURES Fi nal Result * (ABNORMAL) eGFR (10/10/2024 9:11 PM CDT) Pathologist [facility] eGFR 52(L) >=60 mL/min/1. 73 m2 Comment: Interpretive Data Reference Interval Normal >/= 90 mL/min/1.73m2 Mildly decreased* 60 - 89 mL/min/1.73m2 Mildly to moderately decreased 45 - 59 mL/min/1.73m2 Moderately to severely decreased 30 - 44 mL/min/1.73m2 Severely decreased 15 - 29 mL/min/1.73m2 Kidney Failure < 15 mL/min/1.73m2 *Relative to young adult level Estimated glomerular filtration rate is determined by the 2020 CKD-EPI equation recommended by the National Kid[employer] (A Unifying Approach to GFR Estimation: Recommendations of the NKF-ASK Task Force on Reassessing the Inclusion of Race in Diagnosing Kidney Disease, JASN 2020). The CKD-EPI equation should not be used for patients with unstable renal function and has not been validated in children and those over 70. Current interpretive data was last reviewed 2021. Blood 10/10/2024 9:11 PM CDT 10/10/2024 9:40 PM CDT Payal Baptiste NP LAB BLOOD ORDERABLES Final Result [facility] [place] [address] * (ABNORMAL) Differential, auto (10/10/2024 9:11 PM CDT) Pathologist [facility] Neutrophil abs 3.13 1.50 - 6.50 K/cumm Imm gran abs 0.01 0.00 - 0.10 K/cumm [facility] Lymphocyte abs 2.61 0.80 - 3.30 K/cumm [facility] Monocyte abs 0.67 0.20 - 0.80 K/cumm [facility] Eosinophil abs 0.56(H) 0.00 - 0.50 K/cumm [facility] Basophil abs 0.07 0.00 - 0.10 K/cumm [facility] Neutrophil pct 44.5 % [facility] Comment: Interpretive Data Percent cell count reference ranges are not reported, since discordance with absolute values may lead to misinterpretation of CBC data. Current Interpretive Data was last revised on 2017. Imm gran pct 0.1 % [facility] Comment: Interpretive Data Percent cell count reference ranges are not reported, since discordance with absolute values may lead to misinterpretation of CBC data. Current Interpretive Data was last revised on 2017. Lymphocyte pct 37.0 % [facility] Comment: Interpretive Data Percent cell count reference ranges are not reported, since discordance with absolute values may lead to misinterpretation of CBC data. Current Interpretive Data was last revised on 2017. Monocyte pct 9.5 % [facility] Comment: Interpretive Data Percent cell count reference ranges are not reported, since discordance with absolute values may lead to misinterpretation of CBC data. Current Interpretive Data was last revised on 2017. Eosinophil pct 7.9 % [facility] Comment: Interpretive Data Percent cell count reference ranges are not reported, since discordance with absolute values may lead to misinterpretation of CBC data. Current Interpretive Data was last revised on 2017. Basophil pct 1.0 % [facility] Comment: Interpretive Data Percent cell count reference ranges are not reported, since discordance with absolute values may lead to misinterpretation of CBC data. Current Interpretive Data was last revised on 2017. Blood 10/10/2024 9:11 PM CDT 10/10/2024 9:28 PM CDT Payal Baptiste [employer] VP LAB BLOOD ORDERABLES Final Result [facility] [place] [address] * (ABNORMAL) CBC with auto differential (10/10/2024 9:11 PM CDT) WBC 7.05 3.80 - 9.90 K/cumm Hgb 13.7 11.9 - 15.5 g/dL [facility] Hct 40.3 35.6 - 45.5 % [facility] Plt 217 150 - 400 K/cumm [facility] MPV 8.9(L) 9.1 - 12.3 fL [facility] RBC 4.37 3.90 - 5.20 M/cumm [facility] MCV 92.2 81.3 - 96.4 fL [facility] MCH 31.4 27.1 - 33.3 pg [facility] MCHC 34.0 32.3 - 35.7 g/dL [facility] RDW CV 12.6 11.1 - 14.9 % [facility] RDW SD 42.8 35.7 - 48.1 fL [facility] NRBC abs 0.00 0.00 - 0.01 K/cumm [facility] Blood 10/10/2024 9:11 PM CDT 10/10/2024 9:28 PM CDT Payal Baptiste NP LAB BLOOD ORDERABLES Final Result [facility] [place] [address] * (ABNORMAL) Comprehensive metabolic panel (10/10/2024 9:11 PM CDT) Sodium 143 135 - 145 mmol/L Potassium, pl 3.8 3.3 - 4.9 mmol/L [facility] Chloride 106 97 - 110 mmol/L [facility] CO2 29 22 - 32 mmol/L [facility] Anion gap 8 2 - 15 mmol/L [facility] BUN 21 6 - 25 mg/dL [facility] Creatinine 1.05 0.60 - 1.10 mg/dL [facility] Glucose 126 70 - 199 mg/dL [facility] Comment: Interpretive Data Fasting glucose >/= 126 mg/dl is diagnostic for diabetes. Fasting is defined as no caloric intake for at least 8 hours. Fasting glucose between 100 mg/dl to 125 mg/dl is diagnostic of prediabetes. In a patient with classic symptoms of hyperglycemia or hyperglycemic crisis, a random glucose >/= 200 mg/dl is diagnostic for diabetes. In the absence of unequivocal hyperglycemia, results should be confirmed by repeat testing. The classification and Diagnosis of Diabetes Diabetes Care 2021; 46: S19-S40. Current interpretive data was last revised 2022. Calcium 10.2 8.5 - 10.3 mg/dL [facility] Bilirubin, total 0.7 0.1 - 1.2 mg/dL [facility] Protein, pl 6.7 6.5 - 8.5 g/dL [facility] Albumin 4.2 3.5 - 5.0 g/dL [facility] Alk phos 135(H) 40 - 130 Units/L [facility] ALT 23 7 - 45 Units/L [facility] AST 23 10 - 45 Units/L [facility] Blood 10/10/2024 9:11 PM CDT 10/10/2024 9:23 PM CDT us Payal Baptiste NP LAB BLOOD ORDERABLES Final Result [facility] [place] [address] * DEVICE CHECK - REMOTE (10/10/2024 5:16 PM CDT) Anatomical Region Laterality Modality Other Narrative 11/18/2024 7:36 AM CDT Biotronik Edora Dual Pacemaker. Dx; CHB. DOI 01/17/2022-Jerod. Biotronik remote monitoring. Routine DDD Pacemaker Remote. Transmission attached. Battery status: OK , 80% remaining battery life to CESAR. Stable lead impedances, pacing and sensing thresholds. Presenting rhythm: /VIDEO RENTAL CLERK AP-4 %, VIDEO RENTAL CLERK-100% No AT/AF episodes noted. No Ventricular high rate episodes detected. Medications: Amlodipine 5 mg, ASA 81 mg, irbesartan 150 mg See scanned report. Office pacemaker follow up: 01/01/25 Biotronik remote f/u 6 months Vishnu Machado, RN us Khang Newsome MD CV CARDIAC SERVICES PROC EDURES Final Result * CT Head WO Contrast (10/10/2024 2:40 PM CDT) Anatomical Region Laterality Modality Head and Neck N/A Computed Tomogra phy 10/10/2024 4:44 PM CDT Impressions 10/10/2024 4:56 PM CDT No acute intracranial process. Dictated by: Tasha Champion M.D. The radiology attending physician has personally reviewed this study, and had reviewed and/or edited this written report and agrees with it. Electronically signed by: Paulina Bailey M.D. Narrative 10/10/2024 4:56 PM CDT EXAMINATION: CT head without contrast HISTORY: 84-year-old female who presented to the ED on 10/08 with gait disturbance, follow-up. TECHNIQUE: CT of the head was performed with images acquired from skull base to vertex without intravenous contrast. COMPARISON: CT 10/08/2024 FINDINGS: There is no acute intracranial hemorrhage. Ventricles are of normal size and morphology. No mass effect or midline shift is present. The harmon-white matter differentiation is normal. The visualized portions of the orbits are normal. The visualized portions of the mastoids are normal. The visualized portions of the paranasal sinuses are normal. No fractures are identified. Procedure Note Paulina Bailey MD - 10/10/2024 EXAMINATION: CT head without contrast HISTORY: 84-year-old female who presented to the ED on 10/08 with gait disturbance, follow-up. TECHNIQUE: CT of the head was performed with images acquired from skull base to vertex without intravenous contrast. COMPARISON: CT 10/08/2024 FINDINGS: There is no acute intracranial hemorrhage. Ventricles are of normal size and morphology. No mass effect or midline shift is present. The harmon-white matter differentiation is normal. The visualized portions of the orbits are normal. The visualized portions of the mastoids are normal. The visualized portions of the paranasal sinuses are normal. No fractures are identified. IMPRESSION: No acute intracranial process. Dictated by: Tasha Champion M.D. The radiology attending physician has personally reviewed this study, and had reviewed and/or edited this written report and agrees with it. Electronically signed by: Paulina Bailey M.D. Payal Baptiste [employer] VP IMG CT PROCEDURES Fi nal Result * XR Chest PA Lateral 2 Views (10/09/2024 10:40 AM CDT) Anatomical Region Laterality Modality Body, Chest N/A Computed Radiogr aphy 10/09/2024 10:4 3 AM CDT Impressions 10/09/2024 10:43 AM CDT A left subclavian pacemaker is present with leads overlying right atrium and right ventricle. Mild eventration of the right hemidiaphragm is noted, with minimal streaky bibasilar atelectasis. There is no consolidation, pleural effusion, or pneumothorax. The cardiomediastinal silhouette is within normal limits. Electronically signed by: Heron Spence M.D. Narrative 10/09/2024 10:43 AM CDT EXAMINATION: XR CHEST PA LATERAL 2 VIEWS COMPARISON: None. Procedure Note Heron Spence MD PhD - 10/09/2024 EXAMINATION: XR CHEST PA LATERAL 2 VIEWS COMPARISON: None. IMPRESSION: A left subclavian pacemaker is present with leads overlying right atrium and right ventricle. Mild eventration of the right hemidiaphragm is noted, with minimal streaky bibasilar atelectasis. There is no consolidation, pleural effusion, or pneumothorax. The cardiomediastinal silhouette is within normal limits. Electronically signed by: Heron Spence M.D. Lina Ricci [employer] VP IMG XR PROCEDURES Final Res ult * eGFR (10/08/2024 10:25 PM CDT) eGFR 62 >=60 mL/min/1. 73 m2 Comment: Interpretive Data Reference Interval Normal >/= 90 mL/min/1.73m2 Mildly decreased* 60 - 89 mL/min/1.73m2 Mildly to moderately decreased 45 - 59 mL/min/1.73m2 Moderately to severely decreased 30 - 44 mL/min/1.73m2 Severely decreased 15 - 29 mL/min/1.73m2 Kidney Failure < 15 mL/min/1.73m2 *Relative to young adult level Estimated glomerular filtration rate is determined by the 2020 CKD-EPI equation recommended by the National Kidney Foundation (A Unifying Approach to GFR Estimation: Recommendations of the NKF-ASK Task Force on Reassessing the Inclusion of Race in Diagnosing Kidney Disease, JASN 2020). The CKD-EPI equation should not be used for patients with unstable renal function and has not been validated in children and those over 70. Current interpretive data was last reviewed 2021. Blood 10/08/2024 10:2 5 PM CDT 10/08/2024 11:10 PM CDT us Katlin Sanchez MD LAB BLOOD ORDERABLES F inal Result [facility] [place] [address] * (ABNORMAL) Lipid panel (10/08/2024 10:25 PM CDT) Cholesterol 158 30 - 199 mg/dL Comment: Interpretive Data Ages < or = 19 years Acceptable: <170 mg/dL Borderline high: 170-199 mg/dL High: >or= 200 mg/dL Ages > or = 20 years Desirable: <200 mg/dL Borderline high: 200-239 mg/dL High: >or= 240 mg/dL Literature References: 1. Expert Panel on Integrated Guidelines for Cardiovascular Health and Risk Reduction in Children and Adolescents. Pediatrics 2011;128:S213 2. NCEP Expert Panel. Circulation 2004;110:227 Current Interpretive Data was last revised on 2017. Triglycerides 152(H) <=149 mg/dL [facility] Comment: Interpretive Data Ages < or = 9 years Acceptable: <75 mg/dL Borderline high: 75-99 mg/dL High: >or= 100 mg/dL Ages 10 to 20 years Acceptable: <90 mg/dL Borderline high: 90-129 mg/dL High: >or= 130 mg/dL Ages > or = 20 years Desirable: <150 mg/dL Borderline high: 150-199 mg/dL High: 200-499 mg/dL Very high: >or= 499 mg/dL Literature References: 1. Expert Panel on Integrated Guidelines for Cardiovascular Health and Risk Reduction in Children and Adolescents. Pediatrics 2011;128:S213 2. NCEP Expert Panel. Circulation 2004;110:227 Current Interpretive Data was last revised on 2017. HDL 43 >=40 mg/dL [facility] Comment: Interpretive Data Ages < or = 19 years Acceptable: >45 mg/dL Borderline low: 40-45 mg/dL Low: <40 mg/dL Ages > or = 20 years Desirable: >or= 60 mg/dL Low: <40 mg/dL Literature References: 1. Expert Panel on Integrated Guidelines for Cardiovascular Health and Risk Reduction in Children and Adolescents. Pediatrics 2011;128:S213 2. NCEP Expert Panel. Circulation 2004;110:227 Current Interpretive Data was last revised on 2017. LDL, calculated 88 <=129 mg/dL [facility] Comment: Interpretive Data Ages < or = 19 years Acceptable: <110 mg/dL Borderline high: 110-129 mg/dL High: >or= 130 mg/dL Ages > or = 20 years Optimal: <100 mg/dL Near optimal: 100-129 mg/dL Borderline high: 130-159 mg/dL High: >160 mg/dL Calculated using the Mikhail LDL-C estimating equation. This equation was implemented on 2023. Prior to this date LDL-C was estimated using the Friedewald equation. Literature References: 1. Expert Panel on Integrated Guidelines for Cardiovascular Health and Risk Reduction in Children and Adolescents. Pediatrics 2011;128:S213 2. NCEP Expert Panel. Circulation 2004;110:227 3. Mikhail Shafer et al. ANGEL Cardiol. 2020 August 08;5(5):540-548. doi: [email or web address] Current Interpretive Data was last revised on 2023. Non-HDL Cholesterol 115 mg/dL [facility] Comment: Interpretive Data Ages < or = 19 years Acceptable: <120 mg/dL Borderline high: 120-144 mg/dL High: >145 mg/dL Ages > or = 20 years When triglycerides are >200 mg/dL, Non-HDL cholesterol is a secondary target of therapy with treatment goals that are 30 mg/dL greater than the LDL cholesterol target. Literature References: 1. Expert Panel on Integrated Guidelines for Cardiovascular Health and Risk Reduction in Children and Adolescents. Pediatrics 2011;128:S213 2. NCEP Expert Panel. Circulation 2004;110:227 Current Interpretive Data was last revised on 2017. Chol/HDL ratio [address] [facility] Blood 10/08/2024 10:2 5 PM CDT 10/08/2024 11:10 PM CDT Liliane Flowers MD LAB BLOOD ORDERABLES Fi nal Result [facility] [place] [address] * (ABNORMAL) Basic metabolic panel (10/08/2024 10:25 PM CDT) Sodium 146(H) 135 - 145 mmol/L Potassium, pl 3.7 3.3 - 4.9 mmol/L [facility] Chloride 109 97 - 110 mmol/L [facility] CO2 29 22 - 32 mmol/L [facility] Anion gap 8 2 - 15 mmol/L [facility] BUN 23 6 - 25 mg/dL [facility] Creatinine 0.91 0.60 - 1.10 mg/dL [facility] Glucose 132 70 - 199 mg/dL [facility] Comment: Interpretive Data Fasting glucose >/= 126 mg/dl is diagnostic for diabetes. Fasting is defined as no caloric intake for at least 8 hours. Fasting glucose between 100 mg/dl to 125 mg/dl is diagnostic of prediabetes. In a patient with classic symptoms of hyperglycemia or hyperglycemic crisis, a random glucose >/= 200 mg/dl is diagnostic for diabetes. In the absence of unequivocal hyperglycemia, results should be confirmed by repeat testing. The classification and Diagnosis of Diabetes Diabetes Care 2021; 46: S19-S40. Current interpretive data was last revised 2022. Calcium 9.8 8.5 - 10.3 mg/dL [facility] Blood 10/08/2024 10:2 5 PM CDT 10/08/2024 11:10 PM CDT us Katlin Sanchez MD LAB BLOOD ORDERABLES F inal Result Performing Organization Address [facility] Co de Phone Number [facility] [place] [address] * Troponin I high-sensitivity 2-hour (10/08/2024 1:29 PM CDT) Trop I hs 8 <=17 ng/L Comment: Interpretive Data For further hscTnI resources including the diagnostic algorithm and an aid in interpretation, copy and paste this link: [email or web address]/[email or web address] Current Interpretive Data last revised 2019. Trop I hs delta 1 ng/L [facility] Trop I hs interp Insignificant [facility] Blood 10/08/2024 1:29 PM CDT 10/08/2024 1:51 PM CDT Lucas Gupta MD LAB BLOOD ORDERABLES Fin al Result Performing Organization Address [facility] Co de Phone Number [facility] [place] [address] * (ABNORMAL) Urinalysis reflex to microscopic (10/08/2024 12:23 PM CDT) Color, ur Straw Yellow Clarity, ur Clear Clear [facility] Specific gravity, ur 1.009 1.003 - 1.030 [facility] pH, urine 7.5 [facility] Comment: Interpretive Data U rine pH is affected by diet, medications, systemic acid-base disturbances, and renal tubular function. pH may affect urinary stone formation. For example, urine pH below 6.0 may help reduce the tendency for calcium phosphate stones and pH greater than 6.0 may reduce the tendency for uric acid stone formation. Source: [employer] Current Interpretive Data was last revised on 2017 Protein, ur ql Negative Negative [facility] Glucose, ur ql Negative Negative [facility] Ketones, ur Negative Negative [facility] Bilirubin, ur Negative Negative [facility] Blood, ur Negative Negative [facility] Urobilinogen, ur <2.0 <2.0 mg/dL [facility] Nitrite, ur Negative Negative [facility] Leukocyte esterase, ur 1+(A) Negative [facility] UA reflex comment Reflex to microscopic UA will be performed. [facility] Urine 10/08/2024 12:2 3 PM CDT 10/08/2024 12:35 PM CDT Larry Tucker MD LAB URINE ORDERABLES Final Res ult Performing Organization Address [facility] de Phone Number [facility] [place] [address] * (ABNORMAL) Urinalysis, microscopic only (10/08/2024 12:23 PM CDT) WBC, ur 6-10(A) 0 - 5 /HPF RBC, ur 0-2 0 - 2 /HPF [facility] Epithelial cells, squamous, ur 1-5 0 - 5 /HPF [facility] Bacteria, ur 1+(A) [facility] Urine 10/08/2024 12:2 3 PM CDT 10/08/2024 12:35 PM CDT Larry Tucker MD LAB URINE ORDERABLES Final Res ult Performing Organization Address [facility] de Phone Number [facility] Department [place] [address] * ECG 12-LEAD (10/08/2024 11:31 AM CDT) Narrative [facility] - 10/08/2024 11:31 AM CDT Destiny Juan MD 10/08/2024 11:32 AM ECG 12 lead Date/Time: 10/08/2024 11:31 AM Performed by: Destiny Juan MD Authorized by: Lucas Gupta MD Rate: ECG rate: 83 ECG rate assessment: normal Rhythm: Rhythm: sinus rhythm and paced Pacing: Type of pacing: AV Ectopy: Ectopy: none QRS: QRS axis: Normal QRS intervals: Normal Conduction: Conduction: normal ST segments: ST segments: Normal T waves: T waves: normal Previous ECG: Previous ECG: Compared to current Date of previous EC09/16/2024 Similarity: No change Interpretation: Interpretation: No acute injury pattern us Larry Tucker MD ECG ORDERABLES Final Result [facility] * Critical Care (10/08/2024 11:21 AM CDT) Narrative Lucas Gupta MD - 10/08/2024 11:21 AM CDT Lucas Gupta MD 10/08/2024 11:22 AM Critical Care Performed by: Lucas Gupta MD Authorized by: Lucas Gupta MD Critical care provider statement: As reflected in the history, physical exam, orders, notes, and/or MDM, I was personally present while the patient was critically ill and provided critical care services for 15 minutes, excluding time involved in separately billable procedures. Critical care was necessary to treat or prevent imminent or life-threatening deterioration of the following condition(s): severe neurologic condition Critical care was time spent by me providing the following: decision regarding acute lytic therapy No-go for lytic therapy, not a candidate for thrombectomy at this time. I provided emergent necessary critical care medicine services to this patient. I ordered and reviewed test results and/or imaging studies. I spent time discussing the management of this critically ill patient with consultants and the medical staff. I spent time discussing the management and therapeutic options for this critically ill patient with the patient themselves or with the appropriate designated surrogate decision-maker. I spent time documenting in the medical record. us Lucas Gupta MD IN CLINIC/BEDSIDE ORDERA BLES Edited Result - Final * CT Stroke Head WO Contrast (10/08/2024 11:08 AM CDT) Anatomical Region Laterality Modality Head N/A Computed Tomogra phy 10/08/2024 11:3 6 AM CDT Impressions 10/08/2024 11:38 AM CDT No acute intracranial process. Dictated by: Armando Britton M.D. The radiology attending physician has personally reviewed this study, and had reviewed and/or edited this written report and agrees with it. Electronically signed by: Du Stock M.D. Narrative 10/08/2024 11:38 AM CDT EXAMINATION: CT head without contrast HISTORY: Code stroke activation. 84-year-old female with gait changes. Last known normal 59910/08/2024. The patient is not a candidate for intervention. TECHNIQUE: CT of the head was performed with images acquired from skull base to vertex without intravenous contrast. COMPARISON: None Available. FINDINGS: Periventricular white matter hypoattenuation consistent with chronic small vessel ischemic disease. Diffuse mild cerebral volume loss with associated symmetric ventricular prominence is consistent with age-related volume loss. Intracranial vascular calcification is present. There is no acute intracranial hemorrhage. Ventricles are of normal size and morphology. No mass effect or midline shift is present. The harmon-white matter differentiation is normal. The visualized portions of the orbits are normal. The visualized portions of the mastoids are normal. The visualized portions of the paranasal sinuses are normal. No fractures are identified. Procedure Note Du Stock MD - 10/08/2024 EXAMINATION: CT head without contrast HISTORY: Code stroke activation. 84-year-old female with gait changes. Last known normal 59910/08/2024. The patient is not a candidate for intervention. TECHNIQUE: CT of the head was performed with images acquired from skull base to vertex without intravenous contrast. COMPARISON: None Available. FINDINGS: Periventricular white matter hypoattenuation consistent with chronic small vessel ischemic disease. Diffuse mild cerebral volume loss with associated symmetric ventricular prominence is consistent with age-related volume loss. Intracranial vascular calcification is present. There is no acute intracranial hemorrhage. Ventricles are of normal size and morphology. No mass effect or midline shift is present. The harmon-white matter differentiation is normal. The visualized portions of the orbits are normal. The visualized portions of the mastoids are normal. The visualized portions of the paranasal sinuses are normal. No fractures are identified. IMPRESSION: No acute intracranial process. Dictated by: Armando Britton M.D. The radiology attending physician has personally reviewed this study, and had reviewed and/or edited this written report and agrees with it. Electronically signed by: Du Stock M.D. Larry Tucker MD IMG CT PROCEDURES Final Result * POCT prothrombin time, whole blood (10/08/2024 11:03 AM CDT) PT, POC 11.7 10.6 - 13.5 sec INR, bld, POC 1.0 0.9 - 1.2 [facility] Blood 10/08/2024 11:0 3 AM CDT 10/08/2024 11:03 AM CDT Notinfile Unknown LAB POCT ORDERABLES - DEVICE F inal Result Performing Organization Address City/[facility]/ZIP Co de Phone Number [facility] [place] [address] * POCT glucose (10/08/2024 11:02 AM CDT) [facility] Glucose, POC 108 70 - 199 mg/dL Blood 10/08/2024 11:0 2 AM CDT 10/08/2024 11:02 AM CDT Notinfile Unknown LAB POCT ORDERABLES - DEVICE F inal Result Performing Organization Address [facility] Co de Phone Number [facility] [place] [address] * Troponin I high-sensitivity series (baseline, 2hr, 4hr, 6hr) (10/08/2024 10:59 AM CDT) Trop I hs 7 <=17 ng/L Comment: Code Blue Specimen Interpretive Data For further hscTnI resources including the diagnostic algorithm and an aid in interpretation, copy and paste this link: [email or web address]/[email or web address] Current Interpretive Data last revised 2019. Blood 10/08/2024 10:5 9 AM CDT 10/08/2024 11:09 AM CDT Larry Tucker MD LAB BLOOD ORDERABLES Edited Re sult - Final Performing Organization Address [facility]/ZIP Co de Phone Number [facility] [place] [address] * eGFR (10/08/2024 10:59 AM CDT) eGFR 64 >=60 mL/min/1. 73 m2 Comment: Interpretive Data Reference Interval Normal >/= 90 mL/min/1.73m2 Mildly decreased* 60 - 89 mL/min/1.73m2 Mildly to moderately decreased 45 - 59 mL/min/1.73m2 Moderately to severely decreased 30 - 44 mL/min/1.73m2 Severely decreased 15 - 29 mL/min/1.73m2 Kidney Failure < 15 mL/min/1.73m2 *Relative to young adult level Estimated glomerular filtration rate is determined by the 2020 CKD-EPI equation recommended by the National Kidney Foundation (A Unifying Approach to GFR Estimation: Recommendations of the NKF-ASK Task Force on Reassessing the Inclusion of Race in Diagnosing Kidney Disease, JASN 2020). The CKD-EPI equation should not be used for patients with unstable renal function and has not been validated in children and those over 70. Current interpretive data was last reviewed 2021. Blood 10/08/2024 10:5 9 AM CDT 10/08/2024 11:09 AM CDT Larry Tucker MD LAB BLOOD ORDERABLES Final Res ult [facility] [place] [address] * Differential, auto (10/08/2024 10:59 AM CDT) Neutrophil abs 3.40 1.50 - 6.50 K/cumm Imm gran abs 0.02 0.00 - 0.10 K/cumm [facility] Lymphocyte abs 2.54 0.80 - 3.30 K/cumm [facility] Monocyte abs 0.63 0.20 - 0.80 K/cumm [facility] Eosinophil abs 0.33 0.00 - 0.50 K/cumm [facility] Basophil abs 0.05 0.00 - 0.10 K/cumm [facility] Neutrophil pct 48.9 % [facility] Comment: Interpretive Data Percent cell count reference ranges are not reported, since discordance with absolute values may lead to misinterpretation of CBC data. Current Interpretive Data was last revised on 2017. Imm gran pct 0.3 % [facility] Comment: Interpretive Data Percent cell count reference ranges are not reported, since discordance with absolute values may lead to misinterpretation of CBC data. Current Interpretive Data was last revised on 2017. Lymphocyte pct 36.4 % [facility] Comment: Interpretive Data Percent cell count reference ranges are not reported, since discordance with absolute values may lead to misinterpretation of CBC data. Current Interpretive Data was last revised on 2017. Monocyte pct 9.0 % [facility] Comment: Interpretive Data Percent cell count reference ranges are not reported, since discordance with absolute values may lead to misinterpretation of CBC data. Current Interpretive Data was last revised on 2017. Eosinophil pct 4.7 % [facility] Comment: Interpretive Data Percent cell count reference ranges are not reported, since discordance with absolute values may lead to misinterpretation of CBC data. Current Interpretive Data was last revised on 2017. Basophil pct 0.7 % [facility] Comment: Interpretive Data Percent cell count reference ranges are not reported, since discordance with absolute values may lead to misinterpretation of CBC data. Current Interpretive Data was last revised on 2017. Blood 10/08/2024 10:5 9 AM CDT 10/08/2024 11:09 AM CDT us Larry Tucker MD LAB BLOOD ORDERABLES Final Res ult [facility] [place] [address] * (ABNORMAL) CBC with auto differential (10/08/2024 10:59 AM CDT) WBC 6.97 3.80 - 9.90 K/cumm Comment:Code Blue Specimen C ode Blue Specimen Hgb 15.5 11.9 - 15.5 g/dL [facility] Hct 45.1 35.6 - 45.5 % [facility] Plt 236 150 - 400 K/cumm [facility] MPV 8.8(L) 9.1 - 12.3 fL [facility] RBC 4.89 3.90 - 5.20 M/cumm [facility] MCV 92.2 81.3 - 96.4 fL [facility] MCH 31.7 27.1 - 33.3 pg [facility] MCHC 34.4 32.3 - 35.7 g/dL [facility] RDW CV 12.7 11.1 - 14.9 % [facility] RDW SD 42.4 35.7 - 48.1 fL [facility] NRBC abs 0.00 0.00 - 0.01 K/cumm [facility] Blood Venous blood specimen / Unknown 10/08/2024 10:59 AM CDT 10/08/2024 11:09 AM CDT Narrative [facility] - 10/08/2024 11:15 AM CDT Potential Stroke Patient us Larry Tucker MD LAB BLOOD ORDERABLES Final Res ult [facility] [place] [address] * aPTT (10/08/2024 10:59 AM CDT) aPTT 35 28 - 38 sec Comment: Code Blue Specimen Interpretive Data Heparin therapeutic range: 66.0 - 100.0 seconds. Range based on correlation with therapeutic heparin activity range of 0.3 - 0.7 Units/mL. Current interpretive data was last revised on 2023. Blood Venous blood specimen / Unknown 10/08/2024 10:59 AM CDT 10/08/2024 11:09 AM CDT Narrative [facility] - 10/08/2024 11:28 AM CDT Potential stroke patient. Larry Tucker MD LAB BLOOD ORDERABLES Final Res ult Performing Organization Address City/[facility] Co de Phone Number [facility] [place] [address] * Phosphorus (10/08/2024 10:59 AM CDT) Phosphorus, pl 3.3 2.3 - 4.5 mg/dL Blood 10/08/2024 10:5 9 AM CDT 10/08/2024 11:09 AM CDT Lambert Gomez MD LAB BLOOD ORDERABLES Final Result Performing Organization Address [facility] Co de Phone Number [facility] Department [place] [address] * Magnesium (10/08/2024 10:59 AM CDT) Magnesium 2.3 1.4 - 2.5 mg/dL Blood 10/08/2024 10:5 9 AM CDT 10/08/2024 11:09 AM CDT Lambert Gomez MD LAB BLOOD ORDERABLES Final Result Performing Organization Address City/[facility] de Phone Number [facility] [place] [address] * (ABNORMAL) Hemoglobin A1c (10/08/2024 10:59 AM CDT) Hgb A1C 5.9(H) 4.0 - 5.6 % Estimated Average Glucose 123 mg/dL [facility] Comment: The ADA recommends reporting an estimated Average Glucose (eAG) with all Hemoglobin A1c results using the equation derived from a study of 507 normal and diabetic adults. Minority populations were underrepresented and children were not included. (Diabetes Care 2020; 43(S1): S66-S76). The eAG is not equivalent to a fasting glucose. Blood 10/08/2024 10:5 9 AM CDT 10/08/2024 11:13 AM CDT us Liliane Flowers MD LAB BLOOD ORDERABLES Fi nal Result [facility] [place] [address] * (ABNORMAL) Comprehensive metabolic panel (10/08/2024 10:59 AM CDT) Sodium 143 135 - 145 mmol/L Comment:Code Blue Specimen Potassium, pl 4.2 3.3 - 4.9 mmol/L [facility] Comment:Code Blue Specimen Chloride 105 97 - 110 mmol/L [facility] Comment:Code Blue Specimen CO2 28 22 - 32 mmol/L [facility] Comment:Code Blue Specimen Anion gap 10 2 - 15 mmol/L [facility] Comment:Code Blue Specimen BUN 21 6 - 25 mg/dL [facility] Comment:Code Blue Specimen Creatinine 0.88 0.60 - 1.10 mg/dL [facility] Comment:Code Blue Specimen Glucose 117 70 - 199 mg/dL [facility] Comment: Code Blue Specimen Interpretive Data Fasting glucose >/= 126 mg/dl is diagnostic for diabetes. Fasting is defined as no caloric intake for at least 8 hours. Fasting glucose between 100 mg/dl to 125 mg/dl is diagnostic of prediabetes. In a patient with classic symptoms of hyperglycemia or hyperglycemic crisis, a random glucose >/= 200 mg/dl is diagnostic for diabetes. In the absence of unequivocal hyperglycemia, results should be confirmed by repeat testing. The classification and Diagnosis of Diabetes Diabetes Care 202; 46: S19-S40. Current interpretive data was last revised 2022. Calcium 10.7(H) 8.5 - 10.3 mg/dL [facility] Comment:Code Blue Specimen Bilirubin, total 1.0 0.1 - 1.2 mg/dL [facility] Comment:Code Blue Specimen Protein, pl 8.0 6.5 - 8.5 g/dL [facility] Comment:Code Blue Specimen Albumin 4.7 3.5 - 5.0 g/dL [facility] Comment:Code Blue Specimen Alk phos 160(H) 40 - 130 Units/L [facility] Comment:Code Blue Specimen ALT 27 7 - 45 Units/L [facility] Comment:Code Blue Specimen AST 27 10 - 45 Units/L [facility] Comment:Code Blue Specimen Blood Venous blood specimen / Unknown 10/08/2024 10:59 AM CDT 10/08/2024 11:09 AM CDT Narrative [facility] - 10/08/2024 11:29 AM CDT Potential Stroke Patient us Larry Tucker MD LAB BLOOD ORDERABLES Final Res ult [facility] [place] [address] * ECG 12 lead (09/16/2024 3:11 PM CDT) Seras Marion Kamara MD - 09/16/2024 3:11 PM CDT Paced rhythm with a rate of 67. Left bundle-branch block. us Marion Kamara MD ECG ORDERABLES Final Re sult * NOTE (09/16/2024 2:42 PM CDT) Note [facility] Comment: This urine was analyzed for the presence of WBC, RBC, bacteria, casts, and other formed elements. Only those elements seen were reported. 09/16/2024 2:42 PM CDT 09/16/2024 2:42 PM CDT us Marion Kamara MD LAB BLOOD ORDERABLES Fin al Result [facility] [address] [place] [phone] * (ABNORMAL) Urinalysis reflex to microscopic (09/16/2024 2:42 PM CDT) Color, ur YELLOW YELLOW [facility] Appearance, ur CLEAR CLEAR [facility] Specific gravity 1.021 1.001 - 1.035 [facility] pH, ur 7.0 5.0 - 8.0 [facility] Glucose, ur NEGATIVE NEGATIVE [facility] Bilirubin, ur NEGATIVE NEGATIVE [facility] Ketones, ur 1+(A) NEGATIVE [facility] Blood, ur NEGATIVE NEGATIVE [facility] Protein, ur, quant NEGATIVE NEGATIVE [facility] Nitrites, ur NEGATIVE NEGATIVE [facility] Leukocyte esterase, ur TRACE(A) NEGATIVE [facility] WBC, ur NONE SEEN < OR = 5 /HPF [facility] RBC, ur NONE SEEN < OR = 2 /HPF [facility] Epithelial cells, squamous, ur 0-5 < OR = 5 /HPF [facility] Bacteria, ur, quant NONE SEEN NONE SEEN /HPF [facility] Hyaline cast NONE SEEN NONE SEEN /LPF [facility] Urine 09/16/2024 2:42 PM CDT 09/16/2024 2:42 PM CDT Marion Kamara MD LAB URINE ORDERABLES Fin al Result [facility] [address] [place] [address] * CBC with auto differential (09/16/2024 2:42 PM CDT) WBC 7.1 3.8 - 10.8 Thousand/u L [facility] RBC, POC 4.49 3.80 - 5.10 Million/uL [facility] Hgb 14.5 11.7 - 15.5 g/dL [facility] Hct 43.6 35.0 - 45.0 % [facility] MCV 97.1 80.0 - 100.0 fL [facility] MCH 32.3 27.0 - 33.0 pg [facility] MCHC 33.3 32.0 - 36.0 g/dL [facility] Comment: For adults, a slight decrease in the calculated MCHC value (in the range of 30 to 32 g/dL) is most likely not clinically significant; however, it should be interpreted with caution in correlation with other red cell parameters and the patient's clinical condition. Rdw 12.1 11.0 - 15.0 % [facility] Platelets 238 140 - 400 Thousand/u L [facility] MPV 9.3 7.5 - 12.5 fL [facility] Neutrophils, abs 3,642 1,500 - 7,800 cells/uL [facility] Lymphocytes, abs 2,393 850 - 3,900 cells/uL [facility] Monocyte abs 582 200 - 950 cells/uL [facility] Eosinophils, abs 433 15 - 500 cells/uL [facility] Basophils, abs 50 0 - 200 cells/uL [facility] Neutrophils 51.3 % [facility] Lymphocyte pct 33.7 % [facility] Monocytes 8.2 % [facility] Eosinophils 6.1 % [facility] Basophils 0.7 % [facility] Blood 09/16/2024 2:42 PM CDT 09/16/2024 2:42 PM CDT us Marion Kamara MD LAB BLOOD ORDERABLES Fin al Result Performing Organization Address City/State/[facility] Co de Phone Number [facility] [address] [place] [address] * Vitamin D 25 hydroxy (09/16/2024 2:42 PM CDT) [facility] Vitamin D 25-OH 47 30 - 100 ng/mL [facility] Comment: Vitamin D Status 25-OH Vitamin D: Deficiency: <20 ng/mL Insufficiency: 20 - 29 ng/mL Optimal: > or = 30 ng/mL For 25-OH Vitamin D testing on patients on D2-supplementation and patients for whom quantitation of D2 and D3 fractions is required, the QuestAssureD(TM) 25-OH VIT D, (D2,D3), LC/MS/MS is recommended: order code 12288 (patients >2yrs). See Note 1 Note 1 For additional information, please refer to http://education.Kraftwurx/faq/VPL332 (This link is being provided for informational/ educational purposes only.) Blood 09/16/2024 2:42 PM CDT 09/16/2024 2:42 PM CDT Marion Kamara MD LAB BLOOD ORDERABLES Fin al Result Performing Organization Address [facility]/ZIP Co de Phone Number [facility] [address] [place] [address] * Erythrocyte sedimentation rate (09/16/2024 2:42 PM CDT) Erythrocyte sedimentation rate 2 < OR = 30 mm/h [facility] 09/16/2024 2:42 PM CDT 09/16/2024 2:42 PM CDT Marion Kamara MD LAB BLOOD ORDERABLES Fin al Result Performing Organization Address [facility] Co de Phone Number [facility] [address] [place] [address] * CRP (acute phase) (09/16/2024 2:42 PM CDT) C-RP <3.0 <8.0 mg/L [facility] 09/16/2024 2:42 PM CDT 09/16/2024 2:42 PM CDT Marion Kamara MD LAB BLOOD ORDERABLES Fin al Result Performing Organization Address [facility] Co de Phone Number [facility] [address] [place] [address] * TSH (09/16/2024 2:42 PM CDT) Pathologist [facility] TSH 2.12 0.40 - 4.50 mIU/L [facility] Blood 09/16/2024 2:42 PM CDT 09/16/2024 2:42 PM CDT Marion Kamara MD LAB BLOOD ORDERABLES Fin al Result Performing Organization Address [facility]/ZIP Or de Phone Number [facility] [address] [place] [address] * (ABNORMAL) Vitamin B12 (09/16/2024 2:42 PM CDT) Pathologist [facility] Vitamin B12 1,133(H) 200 - 1,100 pg/mL [facility] Blood 09/16/2024 2:42 PM CDT 09/16/2024 2:42 PM CDT Marion Kamara MD LAB BLOOD ORDERABLES Fin al Result Performing Organization Address [facility] de Phone Number [facility] [id number] [place] [phone] * (ABNORMAL) Lipid panel (09/16/2024 2:42 PM CDT) [facility] Cholesterol 202(H) <200 mg/dL [facility] HDL 55 > OR = 50 mg/dL [facility] Triglycerides 95 <150 mg/dL [facility] LDL 127(H) mg/dL (calc) [facility] Comment: Reference range: <100 Desirable range <100 mg/dL for primary prevention; <70 mg/dL for patients with CHD or diabetic patients with > or = 2 CHD risk factors. LDL-C is now calculated using the Miriam calculation, which is a validated novel method providing better accuracy than the Friedewald equation in the estimation of LDL-C. Grant CLOUD et al. ANGEL. 2013;310(19): 0006-1572 (http://education.Maxcyte.[employer]/faq/RPB345) Chol/HDL ratio 3.7 <5.0 (calc) [facility] Non-HDL, (LDL+VLDL) 147(H) <130 mg/dL (calc) [facility] Comment: For patients with diabetes plus 1 major ASCVD risk factor, treating to a non-HDL-C goal of <100 mg/dL (LDL-C of <70 mg/dL) is considered a therapeutic option. Blood 09/16/2024 2:42 PM CDT 09/16/2024 2:42 PM CDT us Marion Kamara MD LAB BLOOD ORDERABLES Fin al Result [facility] [address] [address] [phone] * (ABNORMAL) Comprehensive metabolic panel (09/16/2024 2:42 PM CDT) Glucose 93 65 - 99 mg/dL [facility] Comment: Fasting reference interval BUN 30(H) 7 - 25 mg/dL [facility] Creatinine 0.82 0.60 - 0.95 mg/dL [facility] eGFR 70 > OR = 60 mL/min/1.7 3m2 [facility] BUN/creat ratio 37(H) 6 - 22 (calc) [facility] Sodium 143 135 - 146 mmol/L [facility] Potassium, pl 4.6 3.5 - 5.3 mmol/L [facility] Chloride 104 98 - 110 mmol/L [facility] CO2 28 20 - 32 mmol/L [facility] Calcium 10.6(H) 8.6 - 10.4 mg/dL [facility] Protein, sr 6.8 6.1 - 8.1 g/dL [facility] Albumin 4.6 3.6 - 5.1 g/dL [facility] GLOBULIN 2.2 1.9 - 3.7 g/dL (calc) [facility] Alb/glob ratio 2.1 1.0 - 2.5 (calc) [facility] Bilirubin, total 1.7(H) 0.2 - 1.2 mg/dL [facility] Alk phos 107 37 - 153 U/L [facility] AST 21 10 - 35 U/L [facility] ALT (SGPT) 23 6 - 29 U/L [facility] Blood 09/16/2024 2:42 PM CDT 09/16/2024 2:42 PM CDT us Marion Kamara MD LAB BLOOD ORDERABLES Fin al Result [facility] [address] [address] [phone] from Last 3 Months Insurance MEDICARE [facility] MEDICARE [employer] [facility] MEDICARE [facility] Advance Directives For more information, please contact: [phone] * Full Code (Latest Code Status on File) Date Activated Date Inactivated Comments 10/08/2024 7:05 PM 10/14/2024 6:55 PM Care Teams Casino Operations Supervisor Relationship Specialty Start Date End Date Marion Kamara MD [address] [address] PCP - General Internal Medicine 02/12/19
--- OUTSIDE RECORDS SUMMARY | 2024-12-12 08:06 | XMS_ITS | Patient Health Record ---
Author Organization [facility] Address [facility] [address] [address] Care Team Providers Care Chemical Packager Name Role Phone Khang Bowden MD Primary Care Provider Itzel Lowe Unavailable [phone] Sammy RICK, Pretty Unavailable Unavailable Allergies Allergen (clinical drug ingredient) [...] Tetracyclines & Related hives Drug Allergy Active Reason For Referral No Information Medications Medication SIG (Take, Route, Frequency, Duration) Notes Start Date End Date Status Aspirin 81 81 MG 1 tablet Orally Once a day Active amLODIPine Besylate 5 MG 1 tablet Orally Twice daily; Duration: 30 days Active Irbesartan 150 MG 2 tablets Orally Onc e a day Active Colchicine 0.6 MG 1 tablet Orally Active Albuterol Not-Taking Gemtesa 75 MG 1 tablet Orally Once a day Active Social History Tobacco Use: Social History Observation Description Date Details (start date - stop date) Never Smoker NA - NA Tobacco Use/Smoking Question Answer Notes Are you a nonsmoker Alcohol Screen (Audit-C) Question Answer Notes Did you have a drink containing alcohol in the p ast year? 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) Active confirmed Problem Left bundle branch block (92363710) Left bundle-branch block, unspecified (I44.7) Active confirmed Vital Signs Heart Rate 84 /min 08/27/2024 Respiratory Rate 12 /min 08/27/2024 Blood pressure diastolic 75 mm Hg 08/27/2024 Height 64 in 08/27/2024 Blood pressure systolic 187 mm Hg 08/27/2024 Weight 161 lbs 08/27/2024 BMI 27.63 kg/m2 08/27/2024 Encounters Encounter Location Date Provider Diagnosis [facility] [address] [address] 05/09/2024 Itzel DACOSTA [facility] [address] [address] 05/28/2024 Itzel DACOSTA Atrioventricular blo ck, complete I44.2 and Left bundle-branch block, unspecified I44.7 [facility] [address] [address] 08/27/2024 Itzel DACOSTA Atrioventricular blo ck, complete I44.2 ; Left bundle-branch block, unspecified I44.7 and Essential (primary) hypertension I10 [facility] [place] [address] 06/14/2024 Itzel DACOSTA [facility] [address] [address] 08/27/2024 Itzel DACOSTA Assessments Encounter Date Diagnosis (ICD Code) Assessment Notes Treatment Notes Treatment Clinical Notes Section Notes 05/28/2024 Atrioventricular block, complete (ICD-10 - I44.2) 1. Ordered pacemaker check reviewed with normal function noted and adequate battery life. 2. Pacemaker site is dry without redness or pocket erosion 3. Will RTO in 3 months for routine device check. Unless otherwise needed 08/27/2024 Atrioventricular block, complete (ICD-10 - I44.2) 1. Ordered pacemaker check reviewed with normal function noted and adequate battery life. 2. Pacemaker site is dry without redness or pocket erosion 3. Will RTO in 3 months for routine device check. Unless otherwise needed 08/27/2024 Left bundle-branch block, unspecified (ICD-10 - I44.7) 05/28/2024 Left bundle-branch block, unspecified (ICD-10 - I44.7) 08/27/2024 Essential (primary) hypertension (ICD-10 - I10) 1. Blood pressure log reviewed showing pressures averaging from 150-180 systolic 2. Will proceed with renal artery ultrasound due to uncontrolled HTN 3. Will make adjustments after she calls office with correct dose of blood pressure medications she is taking 08/27/2024 Other Plan Of Treatment Next Appt Details Provider Name:Itzel Norman, 02/11/2025 12:00:00 PM, [address], [place] [address], [place], [address], Insurance Providers Payer Name Payer Address Payer Phone Subscriber Number Group Number Insured Name Patient Relationship to Insured Coverage Start Date Coverage End Date MEDICARE PART [place] [address] [address] [place] [address] [id number] Marisol Yañez Self - patient is the insured [employer] [address] [place] [address] [id number] Marisol Yañez Self - patient is the insured Medical (General) History Medical History History ICD Code LBBB Complete heart block Hypertension Syncope GERD Diverticulitis Bladder cancer Palpitations 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
--- OUTSIDE RECORDS SUMMARY | 2024-12-12 08:06 | XMS_ITS | Encounter Summary ---
Author Organization [facility] Address [address] [facility] [address] [place] [phone] Phone Care Team Providers Care Lavender Farm Worker Name Role Phone Marion Kamara MD Primary Care Provider + Encounter Details Date Type Department Care Team (Late st Contact Info) Description 06/16/2020 Orders Only [facility] [address] [facility] 5[address] [place] [address] [place] [address] Scanning, Provider Social History Tobacco Use Types Packs/Day Years Used Date Smoking Tobacco: Former Comments Unknown Sex and Gender Information Value Date Recorded Sex Assigned at Not on file 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
--- OUTSIDE RECORDS SUMMARY | 2024-12-12 08:06 | XMS_ITS | Encounter Summary ---
Author Organization [facility] Address [address] [facility] [address] [place] [address] Phone Care Team Providers Care Rhinologist Name Role Phone Marion Kamara MD Primary Care Provider + Encounter Details Date Type Department Care Team (Late st Contact Info) Description 05/16/2022 Orders Only [facility] [address] [facility] 5th [place] [address] [place] [address] Marion Kamara MD [address] [facility] [address] [place], [place] [id number] Social History Tobacco Use Types Packs/Day Years Used Date Smoking Tobacco: Former Comments Unknown Sex and Gender Information Value Date Recorded Sex Assigned at Not on file Legal 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
--- OUTSIDE RECORDS SUMMARY | 2024-12-12 08:06 | XMS_ITS | Encounter Summary ---
Author Organization [facility] Address [address] [facility] [address] [place] [address] Phone Care Team Providers Care Hospital Librarian Name Role Phone Marion Kamara MD Primary Care Provider + Encounter Details Date Type Department Care Team (Late st Contact Info) Description 08/12/2021 Orders Only [place] [facility] [address] 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
--- OUTSIDE RECORDS SUMMARY | 2024-12-12 08:06 | XMS_ITS | Encounter Summary ---
Author Organization [facility] Address [address] [place] [address] Phone Care Team Providers Care Adjunct Physics Instructor Name Role Phone Marion Kamara MD Primary Care Provider + Encounter Details Date Type Department Care Team (Latest Contact Info) Description 05/27/2021 Orders Only [facility] Scanning, Provider Social History Tobacco Use Types Packs/Day Years Used Date Smoking Tobacco: Former Comments Unknown Sex and Gender Information Value Date Recorded Sex Assigned at Not on file Legal 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 Gender Identity Female 09/30/2023 6:44 PM CDT [...] Date/Time Associated Diagnosis Comments CARDIOLOGY DOCUMENT SCAN 05/27/2021 documented in this encounter Results * CARDIOLOGY DOCUMENT SCAN (05/27/2021) Anatomical Region Laterality Modality Other us Provider Scanning CV CARDIAC SERVICES PROCEDURES Edited Result - Final documented in this encounter Visit Diagnoses Not on filedocumented in this encounter Care Teams Adjunct Physics Instructor Relationship Specialty Start Date End Date Marion Kamara MD [address] [phone] PCP - General Internal Medicine 02/12/19 documented as of this encounter
--- OUTSIDE RECORDS SUMMARY | 2024-12-12 08:06 | XMS_ITS | Encounter Summary ---
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 Gender Identity Female 09/30/2023 6:44 PM CDT Sexual Orientation Straight 09/30/2023 6: 44 PM CDT documented as of this encounter Plan of Treatment Scheduled Procedures Name Priority Associated Diagnoses Date/Ti nh COLONOSCOPY Colon cancer screening COLONOSCOPY Family history of colon cancer in mother COLONOSCOPY Family history of colon cancer in mother documented as of this encounter Procedures Procedure Name Priority Date/Time Associated Diagnosis Comments SCAN - LABS 08/12/2021 documented in this encounter Results * SCAN - LABS (08/12/2021) us Provider Scanning Final Result documented in this encounter Visit Diagnoses Not on filedocumented in this encounter Care Teams Terminologist Relationship Specialty Start Date End Date Marion Kamara MD [address] [address] PCP - General Internal Medicine 02/12/19 documented as of this encounter
--- OUTSIDE RECORDS SUMMARY | 2024-12-12 08:06 | XMS_ITS | Encounter Summary ---
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
--- OUTSIDE RECORDS SUMMARY | 2024-12-12 08:06 | XMS_ITS | Encounter Summary ---
Author Organization [facility] Address [address] [facility] [address] [place] [phone] Phone Care Team Providers Care Airplane Cover Maker Name Role Phone Marion Kamara MD Primary Care Provider + Encounter Details Date Type Department Care Team (Late st Contact Info) Description 04/25/2022 Orders Only [facility] [address] [facility] 5th [place] [address] [place] [address] Scanning, Provider Social History Tobacco Use Types Packs/Day Years Used Date Smoking Tobacco: Former Comments Unknown Sex and Gender Information Value Date Recorded Sex Assigned at Not on file Legal 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
--- OUTSIDE RECORDS SUMMARY | 2024-12-12 08:07 | XMS_ITS | Patient Health Record ---
Author Organization [facility] Address [address] [place], [place] [id number] Care Team Providers Care Employee Benefits Attorney Name Role Phone CAPRI [employer]ING Unavailable [phone] Marion Kamara Unavailable Unavailable Reason For Referral No Information Plan Of Treatment No Information Insurance Providers Payer Name Payer Address Payer Phone Subscriber Number Group Number Insured Name Patient Relationship to Insured Coverage Start Date Coverage End Date Medicare Part B [place] [address] [place] [address] [id number] SHWETHA TY Self - patient is the insured [facility] ATTN CLAIMS [address] [place] [address] [id number] SHWETHA TY Self - patient is the insured
--- OUTSIDE RECORDS SUMMARY | 2024-12-12 08:07 | XMS_ITS | Clinical Summary ---
Author Organization [facility] Address [address] [place] [address] Phone Care Team Providers Care Passenger Rate Clerk Name Role Phone Amador Mcfadden MD Primary Care Provider Allergies Active Allergy Reactions Criticality Noted Date Comments Celecoxib Muscle Pain Low 11/24/2022 Codeine Dizziness,Nausea and Vomiting,Other (See Comments) Medium 10/01/2019 Avoid codeine Avoid codeine Avoid codeine Avoid codeine Avoid codeine Avoid codeine Penicillins Hives High 03/06/2012 NATURAL PENICILLINS: - Converted from Centricity Reaction: Hives, Reaction: HIVES, NATURAL PENICILLINS: - Converted from Centricity Reaction: Hives, Reaction: HIVES, NATURAL PENICILLINS: - Converted from Centricity Reaction: Hives, Reaction: HIVES, NATURAL PENICILLINS: - Converted from Centricity Pseudoephedrine-Codeine -Gg Other (See Comments) 07/18/2022 Other reaction(s): Vomiting Shellfish Containing Products Hives High 11/05/2019 Sulfa (Sulfonamide Antibiotics) Hives,Rash High 03/06/2012 SULFONAMIDES: - Converted from Centricity Reaction: HIVES, , , Reaction: Hives, SULFONAMIDES: - Converted from Centricity Reaction: HIVES, , , Reaction: Hives, SULFONAMIDES: - Converted from Centricity Reaction: HIVES, , , Reaction: Hives, SULFONAMIDES: - Converted from Centricity Tetanus Vaccines And Toxoid Other (See Comments) High 10/28/2019 Other reaction(s): Other (See comments) Pt unsure, only aware of reaction to horse serum-derived toxoid. Pt unsure, only aware of reaction to horse serum-derived toxoid. Pt unsure, only aware of reaction to horse serum-derived toxoid. Pt unsure, only aware of reaction to horse serum-derived toxoid. Tetracyclines Hives High 04/28/2014 TETRACYCLINE HCL: - Converted from Centricity Reaction: HIVES, , , Reaction: Hives, TETRACYCLINE HCL: - Converted from Centricity Reaction: HIVES, , , Reaction: Hives, Medications Irbesartan (AVAPRO) 75 mg tablet Take 75 mg by mouth daily. Active cholecalciferol , Vitamin D3, (VITAMIN D3) 25 mcg (1,000 unit) Capsule Take 1,000 Units by mouth daily. Active amLODIPine (NORVASC) 10 mg tablet TK 1 T PO QAM Active aspirin (ECOTRIN EC) 81 mg Tablet, Delayed Release (E.C.) Take 1 tablet every day by oral route. Active TURMERIC ORAL Take by mouth. A ctive tretinoin (RETIN-A) 0.05 % Cream APPLY TOPICALLY TO FACE EVERY DAY IN THE EVENING 3 Active coenzyme Q10 100 mg Capsule Take 100 mg by mouth daily. Active Gemtesa 75 mg Tablet Take 1 Tablet by mouth daily. Active traMADoL (ULTRAM) 50 mg tablet TAKE 1 TABLET BY MOUTH EVERY 6 HOURS DIRECTED FOR POST PROCEDURE PAIN 4 Active Active Problems No known active problems Encounters Date Type Department Care Team Description 11/26/2024 External Device Data ST[facility] ABSTRACTION Provider, Abstract 11/13/2024 External Device Data [facility] ABSTRACTION Provider, Abstract 10/23/2024 External Device Data [facility] ABSTRACTION Provider, Abstract 10/23/2024 External Device Data [facility] ABSTRACTION Provider, Abstract 10/23/2024 External Device Data [facility] ABSTRACTION Provider, Abstract 10/22/2024 External Device Data [facility] ABSTRACTION Provider, Abstract 09/25/2024 External Device Data [facility] ABSTRACTION Provider, Abstract 09/24/2024 External Device Data [facility] ABSTRACTION Provider, Abstract from Last 3 Months Family History Medical History Relation Name Comments Colon Cancer Daughter Colon Cancer Maternal Aunt Cancer Mother Thyroid, cervic al Relation Name Status Comments Daughter Maternal Aunt Mother Social History Tobacco Use Types Packs/Day Years Used Date Smoking Tobacco: Never Passive Smoke Exposure: Never Smokeless Tobacco: Never Tobacco Cessation:Counseling Given: Not Answered Alcohol Use Standard Drinks/Week Comments Yes 0 (1 standard drink = 0.6 oz pur e alcohol) occasionally Comments No Sex and Gender Information Value Date Recorded Sex Assigned at Not on file Legal Sex Female 3:44 PM CDT Gender Identity Not on file Sexual Orientation Not on file Last Filed Vital Signs Vital Sign Reading Time Taken Comments Blood Pressure 142/90 12/08/2023 10:55 AM CDT Pulse - - Temperature - - Respiratory Rate - - Oxygen Saturation - - Inhaled Oxygen Concentration - - Weight 71.4 kg (157 lb 6.4 oz) 12/08/2023 10:55 AM CDT Height 160 cm (5' 3) 12/08/2023 10:55 AM CDT Body Mass Index 27.88 12/08/2023 10:55 AM CDT Plan of Treatment Upcoming Encounters Date Type Department Care Team (Late st Contact Info) Description 12/13/2024 11:15 AM CDT Office Visit [facility] BAKERY TECHNICIAN - Medical [address] [address] Armando Sánchez MD [address] [place], [place] [address] [place] [address] Health Maintenance Due Date Last Done Comments DTAP/TDAP/TD VACCINES (1 - Tdap) 1959 OSTEOPOROSIS SCREENING 2004 ZOSTER VACCINE (2 of 3) 06/05/2010 04/10/2010, 11/10 RSV VACCINE (60+ or ) (1 - 1-dose 75+ series) 2014 COVID-19 Vaccine (4 - 2023-2 5 season) 2023 01/08/2021, 06/05/2020, 05/07/2020 INFLUENZA VACCINE (#1) 2024 , 02/14/2022, 01/28/2018, Additional history exists COLORECTAL SCREENING Discontinued 09/09/2013 Colorectal Cancer Screening Discontinued PNEUMOCOCCAL VACCINE 50+ YEARS Completed 1 , 01/07/2015, 04/10/2012, Additional history exists FIT-DNA Q 3 years Discontinued FIT/FOBT Q 1 year Discontinued Flex Sig/CT Colonography Q 5 years Discontinued Insurance MEDICARE PART A AND B [id number] [employer] PPO Care Teams Passenger Rate Clerk Relationship Specialty Start Date End Date Amador Mcfadden MD [address] [place] [address] PCP - General Rheumatology 11/28/19
--- OUTSIDE RECORDS SUMMARY | 2024-12-12 08:07 | XMS_ITS ---
Author Organization [facility] Address [address] [place] [address] Care Team Providers Care Director Power Name Role Phone Marion Kamara MD Primary Care Provider + Active Problems Problem Noted Date Diagnosed Date [...] TIA. - TTE - follow up with [facility] center (cards states that the RV [...] 9m. - TTE - follow up with [facility] center and cards to let me [...] not had any food or drink since videotape sales representative. Likely from dehydration - Resolved. Assessment & Plan (10/13/2024 12:12 PM CDT): Mild hypercalcemia 10.7, normal albumin. Has not had any food or drink since videotape sales representative. Likely from dehydration - Resolved. Assessment & Plan (10/12/2024 10:59 AM CDT): Mild hypercalcemia 10.7, normal albumin. Has not had any food or drink since videotape sales representative. Likely from dehydration - Resolved. Assessment & Plan (10/11/2024 9:29 AM CDT): Mild hypercalcemia 10.7, normal albumin. Has not had any food or drink since videotape sales representative. Likely from dehydration - NSS 100cc/hr. Monitor urine output - Encourage oral intake - Recheck BMP-- resolved Assessment & Plan (10/10/2024 3:10 PM CDT): Mild hypercalcemia 10.7, normal albumin. Has not had any food or drink since videotape sales representative. Likely from dehydration - NSS 100cc/hr. Monitor urine output - Encourage oral intake - Recheck BMP-- resolved Assessment & Plan (10/09/2024 2:07 PM CDT): Mild hypercalcemia 10.7, normal albumin. Has not had any food or drink since videotape sales representative. Likely from dehydration - NSS 100cc/hr. Monitor urine output - Encourage oral intake - Recheck BMP-- resolved Assessment & Plan (10/08/2024 9:45 PM CDT): Mild hypercalcemia 10.7, normal albumin. Has not had any food or drink since videotape sales representative. Likely from dehydration - NSS 100cc/hr. 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 Essential (primary) hypertension 03/07/2012 Overview (10/21/2020): Converted from Centricity: Description - BENIGN ESSENTIAL HYPERTENSION Converted from Centricity: Description - BENIGN ESSENTIAL HYPERTENSION Gastroesophageal reflux disease 03/07/2012 Current Treatment and Therapy Plans No current plan information found. Past Treatment and Therapy Plans No past plan information found. Lifetime Dose Tracking * Chemical Lifetime Dose Automatic Entry Manual Entr y Fluoro Time 0.73 minutes 0.73 minutes 0 minutes Air kerma at the reference point (Ka,r) 1.065 mGy 1 .065 mGy 0 mGy DLP 4,592 mGycm 4,592 mGycm 0 mGycm
--- OUTSIDE RECORDS SUMMARY | 2024-12-12 08:07 | XMS_ITS | Encounter Summary ---
Author Organization [facility] Address [address] [facility] [address] [place] [address] Phone Care Team Providers Care Accountant Systems Name Role Phone Marion Kamara MD Primary Care Provider + Encounter Details Date Type Department Care Team (Late st Contact Info) Description 10/19/2024 Results Follow-Up [facility] [address] [facility] 5th [place] [address] [place] [address] Marion Kamara MD [address] [facility] [address] [place], [place] [id number] CBC with auto differential, Comprehensive metabolic panel, Magnesium, Additional followed-up results: 6 Social History Tobacco Use Types Packs/Day Years Used Date Smoking Tobacco: Former Smokeless Tobacco: Never Personal Safety Answer Date Recorded Have you ever been in or are you currently in a harmful physical or emotional relationship or is someone making you feel afraid or unsafe? 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 Gender Identity Female 09/30/2023 6:44 PM CDT Sexual Orientation Straight 09/30/2023 6: 44 PM CDT documented as of this encounter Miscellaneous Notes * Result Encounter Note - Marion Kamara MD - 10/19/2024 12:56 AM CDT Labs are fine documented in this encounter Plan of Treatment Scheduled Procedures Name Priority Associated Diagnoses Date/Ti ky COLONOSCOPY Colon cancer screening COLONOSCOPY Family history of colon cancer in mother COLONOSCOPY Family history of colon cancer in mother documented as of this encounter Visit Diagnoses Not on filedocumented in this encounter Care Teams Accountant Systems Relationship Specialty Start Date End Date Marion Kamara MD [address] [address] PCP - General Internal Medicine 02/12/19 documented as of this encounter
== END 2024-12-12 07:52 | disposition home or self-care (01) ==
LOC: ANHFOHIMG 08:01
DX: Z12.31 Encounter for screening mammogram for malignant neoplasm of breast (principal)
CPT/HCPCS: 77063; 77067